=== PATIENT | male | born 1965 | race Caucasian/White ===

== ENCOUNTER 2017-10-04 16:49 | Inpatient (IN) ==
[2017-10-04] MEDS ORDERED: Naloxone 0.4 MG/ML INJ IVP PRN ×2 (19:01→22:21)
[2017-10-04] MEDS ORDERED: *HR* Dextrose 50 % in Water (Syg) 50 ML SYRINGE IVP PRN (22:21)
[2017-10-04] MEDS ORDERED: D5% in Water 1,000 ML IVC PRN (22:21)
[2017-10-04] MEDS ORDERED: Acetaminophen 325 MG TABLET PO PRN (22:21)
[2017-10-04] MEDS ORDERED: *HR* Heparin 5,000 UNIT/ML VIAL IVP PRN ×2 (22:21)
[2017-10-04] MEDS ORDERED: *HR* Heparin 5,000 UNIT/ML VIAL IVP ONE (22:21)
[2017-10-04] MEDS ORDERED: Dextrose Gel 15 GM/37.5 ML TUBE PO PRN ×2 (22:21)
[2017-10-04] MEDS ORDERED: Levalbuterol Neb 1.25 MG/3 ML IH PRN (22:36)
[2017-10-04 23:12] LABS: Hematocrit 32.9 % (37.5-50.1); Hemoglobin 10.9 g/dL (12.9-16.9); Mean Corpuscular HGB Conc 33.1 g/dL (31.6-35.5); Mean Corpuscular Hemoglobin 26.9 pg (28.0-33.3); Mean Corpuscular Volume 81.2 fL (83.0-100.0); Mean Platelet Volume 9.7 fL (9.4-12.4); Platelet Count 326 K/mcL (140-400); Red Blood Count 4.05 M/mcL (4.19-5.50)
[2017-10-04 23:17] LABS: INR 1.5; Prothrombin Time 15.8 Seconds (9.4-12.1)
[2017-10-04 23:20] LABS: Activated Partial Thrombo Time 31.1 Seconds (26.0-36.0)
[2017-10-04] MEDS: Furosemide 40 MG/4 ML VIAL IVP SCH (23:50)
[2017-10-04] MEDS: Heparin 25,000 UNIT/500 ML D5W 25,000 UNIT/500 ML BAG IVC SCH (23:51)
--- NOTE | 2017-10-04 23:54 | Internal Med History&Physical ---
Date of Encounter: 10/04/17 Time of Encounter: 19:35 Internal Medicine - H&P: HPI Chief complaint: SOB; CP Admitted From: Hospital to Hospital Transfer Plans for Post Hospital Care: Home History of present illness: Mr. Brown is a 52 year old male who presents in transfer from [facility] ER for sustained tachycardia, shortness of breath, and chest tightness. Workup there revealed patient had a left bundle branch block and EKG , which was old. He also had acute on chronic kidney disease and they were unable to obtain a VQ scan and/or CT angiogram to rule out pulmonary embolus. However, his d-dimer was within normal limits. He was transferred to [facility] for ongoing workup and care. Upon my assessment of the patient, he denies any chest pain or tightness presently. He does confirm having had it earlier today and the last several days. He states he has had flulike illness for the last several days associated with coughing, shortness of breath, myalgias, body aches, and low- grade fevers. Symptoms have all resolved over the last 24 hours except for shortness of breath which persists. Upon further questioning, he states he has had increasing weight gain, significant lower extremity edema, and increased abdominal girth over the last 3 weeks. He states he's never had that before. He denies any prior history of heart disease. He does suffer from sleep apnea and wears a CPAP mask at night religiously. Past Med Surg Social Fam HX - Past Medical History Attestation: Yes The following information was validated with the patient. Source: patient, old records reviewed Medical history: arthritis, COPD, diabetes, GERD, hyperlipidemia, hypertension Psychiatric history: depression - Past Surgical History Surgical History: appendectomy - Social History Smoking Status: Never smoker Smokeless Tobacco Status: Yes Alcohol use: rarely Drug use: none Current living situation: Home, With Family Activity Level: Independent ambulation Recent Out of Country Travel Within the Last 8 Weeks: No - Family History Mother Hx Family Endocrine Disorder: Yes Father Hx Family Cardiac Disorders: Yes Internal Medicine - H&P: Meds Albuterol Sulfate [Ventolin Hfa] 2 puff IH Q6H PRN 12/21/15 [History] Allopurinol [Zyloprim 300 MG] 300 mg PO DAILY 12/21/15 [History] Atorvastatin [Lipitor] 20 mg PO HS 12/21/15 [History] Docusate [Colace] 100 mg PO DAILY 12/21/15 [History] Escitalopram [Lexapro] 10 mg PO HS 12/21/15 [History] Furosemide [Lasix] 40 mg PO BID 12/21/15 [History] Gabapentin [Neurontin] 800 mg PO QID 12/21/15 [History] Gemfibrozil [Lopid] 600 mg PO BIDWM 12/21/15 [History] Insulin Glargine,Hum.rec.anlog [Lantus Solostar] 35 unit SQ HS 12/21/15 [History ] Liraglutide [Victoza 3-Christiano] 1.8 mg SQ DAILY 12/21/15 [History] Lisinopril [Zestril] 5 mg PO DAILY 12/21/15 [History] OxyCODONE/APAP 10/325 [Percocet 10/325 MG] 1 each PO Q4HR PRN 12/21/15 [History] Potassium Chloride [K-Tab ER] 20 meq PO BID 12/21/15 [History] Terazosin [Hytrin] 5 mg PO HS 12/21/15 [History] amLODIPine [Norvasc] 10 mg PO DAILY 12/21/15 [History] hydrOXYzine HCl [Hydroxyzine HCl] 100 mg PO HS 12/21/15 [History] Albuterol Neb [Proventil Neb] 2.5 mg IH TID 02/20/17 [History] Cholecalciferol (Vitamin D3) [Vitamin D3] 10,000 unit PO 2XW 02/20/17 [History] Linaclotide [Linzess] 290 mcg PO DAILY 02/20/17 [History] Metformin HCl [Glucophage] 1,000 mg PO BID 02/20/17 [History] Methocarbamol [Robaxin-750] 750 mg PO Q8H PRN 02/20/17 [History] Multivitamin with Iron [Multivitamins with Iron] 1 each PO DAILY 02/20/17 [ History] [place]-3/Dha/Epa/Fish Oil [Fish Oil 1,000 mg Softgel] 2,000 mg PO BID 02/20/17 [ History] Polyvinyl Alcohol [Artificial Tears] 2 drop OP QID PRN 02/20/17 [History] Ranitidine HCl [Zantac] 300 mg PO DAILY 02/20/17 [History] Testosterone Cypionate [Depo-Testosterone] 200 mg IM Q2W 02/20/17 [History] glipiZIDE [Glipizide ER] 10 mg PO DAILY 02/20/17 [History] Azithromycin [Zithromax Tri-Christiano] 500 mg PO DAILY #2 tablet 02/23/17 [Rx] Cefdinir [Omnicef] 300 mg PO BID #4 capsule 02/23/17 [Rx] 3 Allergy/AdvReac Type Severity Reaction Status Date / Time aspirin Allergy Swelling Verified 01/17/17 14:27 of Lip/Tongue/Throat Penicillins Allergy Swelling Verified 01/17/17 14:27 of Lip/Tongue/Throat Sulfa (Sulfonamide Allergy Swelling Verified 01/17/17 14:27 Antibiotics) of Lip/Tongue/Throat - Constitutional Constitutional: fatigue, malaise, weight gain, no fever(s) - EENT Eyes: no blurry vision, no change in vision Ears: no ear pain, no tinnitus Nose, mouth and throat: nasal congestion, no nasal discharge, no sinus pressure , no sore throat - Cardiovascular Cardiovascular ROS IM: chest pain, dyspnea, dyspnea on exertion, edema, orthopnea, paroxysmal nocturnal dyspnea, no syncope - Respiratory Respiratory: cough (dry), dyspnea, dyspnea on exertion, no wheezing, no pain on inspiration, no chest congestion, no excessive phlegm production, no change in phlegm color, no pain with cough - Gastrointestinal Gastrointestinal: no abdominal pain, no diarrhea, no hematemesis, no hematochezia, no melena, no nausea, no vomiting - Genitourinary Genitourinary ROS male: no dysuria, no flank pain, no hematuria - Musculoskeletal Musculoskeletal ROS IM: myalgias (resolved), no arthralgias, no back pain - Integumentary Integumentary IM: no rash, no jaundice - Neurological Neurological ROS: no dizziness, no focal weakness, no frequent falls, no headache(s) - Psychiatric Psychiatric: no anxiety, no depression - Endocrine Endocrine IM: polydipsia, polyuria - Allergic/Immunologic Allergic/Immunologic: no GI upset with certain foods - Constitutional Vitals: Temp Pulse Resp BP Pulse Ox 97.8 F 122 18 115/74 96 10/04/17 18:14 10/04/17 18:14 10/04/17 18:14 10/04/17 18:14 10/04/17 21:33 General appearance: Present: cooperative, mild distress (respiratory), A&O X 3, no acute distress, answers questions appropriately - Head Head exam: Present: atraumatic, normal inspection - Eye Eye exam: Present: EOMI, normal appearance, PERRL. Absent: scleral icterus Pupils: Present: normal accommodation - ENT ENT exam: Present: mucous membranes dry, normal exam, normal oropharynx - Neck Neck exam general surgery: Present: full ROM, supple. Absent: lymphadenopathy, tenderness, nuchal rigidity, thyromegaly - Expanded Neck Exam Neck exam: Absent: carotid bruit - Respiratory Respiratory exam: Present: accessory muscle use, rales (both bases), respiratory distress (mild ), rhonchi. Absent: chest wall tenderness, wheezes - Cardiovascular Cardiovascular exam: Present: distant heart sounds, +S1, +S2, tachycardia. Absent: diastolic murmur, JVD (unable to assess), systolic murmur - GI/Abdominal GI/Abdominal exam: Present: distended, soft. Absent: guarding, hepatomegaly, rebound, splenomegaly, tenderness Additional comments: increased girth - Extremities Exam Extremities exam: Present: full ROM, normal capillary refill, pedal edema (3+ ( all new)), warm, radial pulses palpable and symmetrical. Absent: calf tenderness, cyanotic, joint swelling, tenderness - Back Exam Back exam: Present: normal inspection. Absent: CVA tenderness (L), CVA tenderness (R) - Neurological Exam Neurological exam: Present: alert, CN II-XII intact, oriented X3, no focal deficits - Psychiatric Psychiatric exam: Present: normal affect, normal mood - Skin Skin exam: Present: dry, rash, warm Additional comments: multiple tattoos throughout Internal Med - H&P Results - Labs CBC & Chem 7: 10/04/17 23:02 Labs: Short CBC 10/04/17 Range/Units 23:02 WBC 8.0 (4.3-11.1) K/mcL Hgb 10.9 L (12.9-16.9) g/dL Hct 32.9 L (37.5-50.1) % Plt Count 326 (140-400) K/mcL Cardiac Enzymes 10/04/17 Range/Units 19:17 Troponin I 0.03 (< 0.04) ng/mL In addition to above I reviewed his labs from [facility] and include the following: Sodium 135 Potassium 3.5 Chloride 98 Carbon dioxide 22 Creatinine 1.84 BUN 49 Baseline creatinine is about 1.3 PT 14.6 INR 1.3 PTT 32.1 D-dimer 408 Troponin -- 0.03 - EKG Data -: EKG Interpreted by Myself - EKG Data Prior EKG available for review: yes When compared to previous EKG: there is no significant change EKG comments: 10/05/17 00:02 LBBB; tachycardia - Diagnostic Studies Chest x-ray Status: image reviewed by me (cardiomegaly and CHF findings) - VTE Reasons for not Prescribing Prophylaxis: Not indicated-Anticoagulated or INR therapeutic - Assessment and plan (1) Congestive heart failure Current Visit: Yes Status: Acute Assessment and plan: 1. Will place on fluid restriction and begin diuresis. 2. Will order ECHO and consult cardiology for new diagnosis of CHF. 3. Patient denies heart disease history and/or h/o CAD. 4. Will order V/Q and LE Dopplers to rule out PE/DVT. 5. Continue CPAP per home settings. 6. Heparin gtt started empirically for the remote possibility of PE and /or unstable angina. 7. Will trend troponins and EKG's. Qualifiers: Heart failure type: unspecified Heart failure chronicity: acute Qualified Code(s): I50.9 - Heart failure, unspecified (2) Acute on chronic renal failure Current Visit: No Status: Acute Assessment and plan: 1. Will monitor renal function and avoid nephrotoxic medications. 2. Monitor I/O and daily weight. 3. Consult nephrology if necessary. Qualifiers: Acute renal failure type: unspecified Chronic kidney disease stage: stage 3 (moderate) Qualified Code(s): N17.9 - Acute kidney failure, unspecified; N18.3 - Chronic kidney disease, stage 3 (moderate) (3) Diabetes Current Visit: No Status: Chronic Assessment and plan: 1. Will place on SSI and adjust dose as necessary. 2. Awaiting home medication verification. 3. Resume basal insulin once verified. 4. Hold oral home diabetic meds. 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 On heparin drip per protocol.
[2017-10-05 01:07] LABS: Adenovirus Not Detected (Not Detect); Bordetella Pertussis Not Detected (Not Detect); Chlamydophila pneumoniae Not Detected (Not Detect); Coronavirus 229E Not Detected (Not Detect); Coronavirus HKU1 Not Detected (Not Detect); Coronavirus NL63 Not Detected (Not Detect); Coronavirus OC43 Not Detected (Not Detect); Human Metapneumovirus Not Detected (Not Detect); Human Rhinovirus/Enterovirus Not Detected (Not Detect); Influenza A Subtype 2009 H1 Not Detected (Not Detect); Influenza A Untypeable Not Detected (Not Detect); Influenza B Not Detected (Not Detect); Mycoplasma pneumoniae Not Detected (Not Detect); Parainfluenza Virus 1 Not Detected (Not Detect); Parainfluenza Virus 2 Not Detected (Not Detect); Parainfluenza Virus 3 Not Detected (Not Detect); Parainfluenza Virus 4 Not Detected (Not Detect); Respiratory Syncytial Virus Not Detected (Not Detect)
[2017-10-05 01:21] LABS: Basophils % 0.1 %; Hemoglobin 11.4 g/dL (12.9-16.9); Immature Granulocytes % 0.5 % (0-4); Lymphocytes # 0.4 K/mcL (0.6-4.6); Mean Corpuscular HGB Conc 33.5 g/dL (31.6-35.5); Mean Corpuscular Hemoglobin 26.9 pg (28.0-33.3); Mean Corpuscular Volume 80.2 fL (83.0-100.0); Mean Platelet Volume 9.7 fL (9.4-12.4); Monocytes # 0.2 K/mcL (0.0-1.3); Monocytes % 2.1 %; Neutrophils # 7.8 K/mcL (1.6-8.9); Platelet Count 360 K/mcL (140-400); Red Blood Count 4.24 M/mcL (4.19-5.50); Red Cell Distribution Width 14.2 % (11.5-14.5); Segmented Neutrophils % 92.3 %
[2017-10-05 01:26] LABS: INR 1.7; Prothrombin Time 18.1 Seconds (9.4-12.1)
[2017-10-05 01:42] LABS: Albumin 3.8 g/dL (3.5-5.7); Albumin/Globulin Ratio 1.1 (1.1-2.2); Bilirubin,Total 0.4 mg/dL (0.3-1.0); Calcium 8.4 mg/dL (8.6-10.3); Chol/HDL Ratio 3.9 (0-4.9); Globulin 3.5 g/dL (2.4-3.5); Potassium 5.2 mEq/L (3.5-5.1); Total Protein 7.3 g/dL (6.4-8.9)
[2017-10-05 08:19] LABS: Estimated Average Glucose 223 mg/dl; Hemoglobin A1C 9.4 %
[2017-10-05] MEDS: Gabapentin 400 MG CAPSULE PO SCH ×4 (08:47→20:50)
[2017-10-05] MEDS: Multivit/Ca/Min/Fe/FA 1 TAB TABLET PO SCH (08:47)
[2017-10-05] MEDS: Famotidine 20 MG TABLET PO SCH (08:47)
[2017-10-05] MEDS: Insulin LISPRO 300 UNITS/3 ML VIAL SQ SCH ×4 (08:50→23:38)
[2017-10-05] MEDS: Furosemide 40 MG/4 ML VIAL IVP SCH (08:51)
--- NOTE | 2017-10-05 10:40 | Cardiology Consult Note ---
<Elodia Zavala - Last Filed: 10/05/17 10:45> Date of Encounter: 10/05/17 Time of Encounter: 10:00 Assessment and Plan (1) Congestive heart failure Current Visit: Yes Status: Acute Patient presents with CHF symptoms; type unclear. Suspect diastolic. Also-- primary team working up ?PE, unable to complete V/Q d/t orthopnea. BNP mildly elevated at 288--patient is morbidly obese. CXR shows vascular congestion. Mildly volume overload upon exam. Reports chronic orthopnea. Last TTE 2011 demonstrated preserved LVEF, 50-55%. Also presented with MOISES on CKD, SCr 1.77 today. Would recommend cautious diuresis. Strict I&O's, Na/fluid restriction diet. Daily weights. Echo pending. Qualifiers: Heart failure type: diastolic Heart failure chronicity: acute on chronic Qualified Code(s): I50.33 - Acute on chronic diastolic (congestive) heart failure (2) FRED (obstructive sleep apnea) Current Visit: No Status: Chronic Reports compliance with CPAP Discussion w patient/family: The assessment and plan as outlined above was discussed with the patient and/or family members who expressed understanding and agreement. All questions were answered. Thank you for involving us in the care of your patient. Please call with any questions. The patient will be discussed and reviewed with Dr. High; changes to be made accordingly. History of Present Illness Consult date: 10/05/17 Requesting physician: Moe Thomson Consult reason: CHF Chief complaint: shortness of breath History of present illness: Mr. Brown is a 52 year old male with PMHx significant of FRED (CPAP), HTN, HLD, DMII, CKD, and morbid obesity who presented to [place] ED with a 2-week history of flu-like symptoms including nonproductive cough, fatigue, shortness of breath, and chest tightness. He describes chest tightness and "chest cold." He states that he has not been eating/drinking as he normally would due to "feeling so bad." He was found to be tachycardiac and D-dimer was elevated and then sent to [facility] for further care. ECG demonstrated LBB (old). Cardiology consulted for concern of new CHF. Unfortunately, he was unable to complete V/Q scan (r/o PE) this AM due to orthopnea. He tells me he has not been able to lay flat for "years." Prior CV testing: TTE 2012: LVEF 50-55%, normal wall motion Regadenoson nuclear 2012: negative for ischemia. Past Med Surg Social Fam HX - Past Medical History Attestation: Yes The following information was validated with the patient. Source: patient Medical history: arthritis, COPD, diabetes, GERD, hyperlipidemia, hypertension Psychiatric history: depression - Past Surgical History Surgical History: appendectomy - Social History Smoking Status: Never smoker Smokeless Tobacco Status: Yes Alcohol use: rarely Drug use: none - Family History Mother Hx Family Endocrine Disorder: Yes Father Hx Family Cardiac Disorders: Yes Medications and Allergies Albuterol Sulfate [Ventolin Hfa] 2 puff IH Q6H PRN 12/21/15 [History] Allopurinol [Zyloprim 300 MG] 300 mg PO DAILY 12/21/15 [History] Atorvastatin [Lipitor] 20 mg PO HS 12/21/15 [History] Docusate [Colace] 100 mg PO DAILY 12/21/15 [History] Escitalopram [Lexapro] 20 mg PO HS 12/21/15 [History] Furosemide [Lasix] 40 mg PO BID 12/21/15 [History] Gabapentin [Neurontin] 800 mg PO QID 12/21/15 [History] Gemfibrozil [Lopid] 600 mg PO BIDWM 12/21/15 [History] Insulin Glargine,Hum.rec.anlog [Lantus Solostar] 35 unit SQ HS 12/21/15 [History ] Liraglutide [Victoza 3-Christiano] 1.8 mg SQ DAILY 12/21/15 [History] Lisinopril [Zestril] 5 mg PO DAILY 12/21/15 [History] OxyCODONE/APAP 10/325 [Percocet 10/325 MG] 1 each PO Q4HR PRN 12/21/15 [History] Terazosin [Hytrin] 5 mg PO HS 12/21/15 [History] amLODIPine [Norvasc] 10 mg PO DAILY 12/21/15 [History] hydrOXYzine HCl [Hydroxyzine HCl] 100 mg PO HS 12/21/15 [History] Albuterol Neb [Proventil Neb] 2.5 mg IH TID 02/20/17 [History] Cholecalciferol (Vitamin D3) [Vitamin D3] 10,000 unit PO 2XW 02/20/17 [History] Linaclotide [Linzess] 290 mcg PO DAILY 02/20/17 [History] Metformin HCl [Glucophage] 1,000 mg PO BID 02/20/17 [History] Methocarbamol [Robaxin-750] 750 mg PO Q8H PRN 02/20/17 [History] Multivitamin with Iron [Multivitamins with Iron] 1 each PO DAILY 02/20/17 [ History] [place]-3/Dha/Epa/Fish Oil [Fish Oil 1,000 mg Softgel] 2,000 mg PO BID 02/20/17 [ History] Ranitidine HCl [Zantac] 300 mg PO DAILY 02/20/17 [History] Testosterone Cypionate [Depo-Testosterone] 200 mg IM Q2W 02/20/17 [History] glipiZIDE [Glipizide ER] 10 mg PO DAILY 02/20/17 [History] Acyclovir [Zovirax] 200 mg PO BID 10/05/17 [History] 3 Allergy/AdvReac Type Severity Reaction Status Date / Time aspirin Allergy Swelling Verified 10/05/17 09:23 of Lip/Tongue/Throat Penicillins Allergy Swelling Verified 10/05/17 09:23 of Lip/Tongue/Throat Sulfa (Sulfonamide Allergy Swelling Verified 10/05/17 09:23 Antibiotics) of Lip/Tongue/Throat All Systems Review: The remainder of the systems were reviewed and are negative - Cardiovascular Cardiovascular: as per HPI Physical Examination Vital Signs, Last 4 Hours Temp Pulse Resp BP Pulse Ox 10/05/17 07:36 97.5 F L 116 18 95/69 97 General: Conversant, Other (morbidly obese) HEENT: Atraumatic, Normocephaly Cardiac: Reg Rate and Rhythm (tachycardiac) Lungs: Normal Breath Sounds Neuro: Alert and responsive Abdomen: Soft (obese) Extremities: Other (large LE) Results 10/05/17 00:53 10/05/17 00:53 Lab Results 10/04/17 10/04/17 10/04/17 19:17 23:02 23:02 WBC 8.0 Hgb 10.9 L Hct 32.9 L Plt Count 326 INR 1.5 APTT 31.1 Sodium Potassium Chloride Carbon Dioxide BUN Creatinine Glucose Calcium Magnesium Total Bilirubin AST ALT Alkaline Phosphatase Troponin I 0.03 B-Natriuretic Peptide 10/05/17 10/05/17 10/05/17 00:53 00:53 00:53 WBC 8.5 Hgb 11.4 L Hct 34.0 L Plt Count 360 INR 1.7 APTT Sodium Potassium Chloride Carbon Dioxide BUN Creatinine Glucose Calcium Magnesium Total Bilirubin AST ALT Alkaline Phosphatase Troponin I 0.03 B-Natriuretic Peptide 10/05/17 10/05/17 10/05/17 00:53 00:53 06:06 WBC Hgb Hct Plt Count INR APTT 85.2 H D Sodium 130 L Potassium 5.2 H D Chloride 97 L Carbon Dioxide 19 L BUN 55 H Creatinine 1.77 H Glucose 400 H Calcium 8.4 L Magnesium 2.0 Total Bilirubin 0.4 AST 17 ALT 23 Alkaline Phosphatase 102 Troponin I B-Natriuretic Peptide 288 H 10/05/17 07:03 WBC Hgb Hct Plt Count INR APTT Sodium Potassium Chloride Carbon Dioxide BUN Creatinine Glucose Calcium Magnesium Total Bilirubin AST ALT Alkaline Phosphatase Troponin I 0.03 B-Natriuretic Peptide Active Medications Acetaminophen (Tylenol) 650 mg PO Q6H PRN PRN Reason: Mild Pain/Fever Stop: 04/05/18 22:22 Allopurinol (Zyloprim) 300 mg PO DAILY [facility] Stop: 04/06/18 09:01 Last Admin: 10/05/17 08:47 Dose: 300 mg Atorvastatin Calcium (Lipitor) 20 mg PO HS [facility] Stop: 04/06/18 21:01 Dextrose/Water (Dextrose 50% (Syg)) 25 ml IVP AD PRN PRN Reason: Hypoglycemia Stop: 04/05/18 22:22 Docusate Sodium (Colace) 100 mg PO DAILY [facility] PRN Reason: Protocol Stop: 04/06/18 09:01 Last Admin: 10/05/17 08:51 Dose: 100 mg Famotidine (Pepcid) 40 mg PO DAILY [facility] Stop: 04/06/18 09:01 Last Admin: 10/05/17 08:47 Dose: 40 mg Furosemide (Lasix) 40 mg IVP BID [facility] Stop: 04/05/18 22:31 Last Admin: 10/05/17 08:51 Dose: 40 mg Gabapentin (Neurontin) 800 mg PO QID [facility] Stop: 04/06/18 09:01 Last Admin: 10/05/17 08:47 Dose: 800 mg Gemfibrozil (Lopid) 600 mg PO BIDWM [facility] Stop: 04/06/18 08:01 Last Admin: 10/05/17 08:49 Dose: 600 mg Glucagon (Glucagen) 1 mg IM ONCE PRN PRN Reason: Hypoglycemia Stop: 04/05/18 22:22 Glucose (Gluctose) 15 gm PO ONCE PRN PRN Reason: Hypoglycemia Stop: 04/05/18 22:22 Glucose (Gluctose) 30 gm PO ONCE PRN PRN Reason: Hypoglycemia Stop: 04/05/18 22:22 Heparin Sodium (Porcine) (Heparin) 9,000 unit IVP Q6HR PRN PRN Reason: SEE COMMENTS Stop: 04/05/18 22:22 Heparin Sodium (Porcine) (Heparin) 4,500 unit IVP Q6H PRN PRN Reason: SEE COMMENTS Stop: 04/05/18 22:22 Dextrose (Dextrose 5%) 1,000 mls @ 100 mls/hr IVC .Q10H PRN PRN Reason: HYPOGLYCEMIA Stop: 04/05/18 22:22 Heparin Sodium/Dextrose (Heparin 25,000 Unit/500 Ml D5w) 25,000 unit in 500 mls @ 41.692 mls/hr IVC .Q12H [facility]; 14 UNIT/KG/HR PRN Reason: Protocol Stop: 04/05/18 22:31 Last Titration: 10/05/17 06:00 Dose: 14 unit/kg/hr, 41.692 mls/hr Insulin Human Lispro (Humalog) 0 units SQ TIDAC [facility] PRN Reason: Protocol Stop: 04/06/18 07:31 Last Admin: 10/05/17 08:50 Dose: 10 units Levalbuterol HCl (Xopenex) 1.25 mg IH [id number] PRN PRN Reason: Wheezing Stop: 04/05/18 22:46 Metoprolol Tartrate (Lopressor) 12.5 mg PO BID [facility] Stop: 04/05/18 22:31 Last Admin: 10/05/17 08:48 Dose: 12.5 mg Multivitamins/Calcium (Thera M Plus) 1 tab PO DAILY [facility] Stop: 04/06/18 09:01 Last Admin: 10/05/17 08:47 Dose: 1 tab Naloxone HCl (Narcan) 0.4 mg IVP Q2MIN PRN PRN Reason: SEE COMMENTS Stop: 04/05/18 19:02 Naloxone HCl (Narcan) 0.4 mg IVP Q2MIN PRN PRN Reason: SEE COMMENTS Stop: 04/05/18 22:22 Polyethylene Glycol (Miralax) 17 gm PO DAILY PRN PRN Reason: Constipation Stop: 04/06/18 07:58 Last Admin: 10/05/17 08:47 Dose: 17 gm Terazosin HCl (Hytrin) 5 mg PO HS [facility] Stop: 04/06/18 21:01 Vitamin D (Vitamin D) 1,000 unit PO DAILY [facility] Stop: 04/09/18 09:01 - Imaging and Cardiology Stress Test: report reviewed Echo: pending, report reviewed - EKG Interpretation EKG results cardiology: personally reviewed Consult Discharge Plan - Plan Referrals: NONE,PCP [Non-Partnered Physician] - <Neo High - Last Filed: 10/09/17 19:29> Date of Encounter: 10/05/17 Time of Encounter: 19:00 - Attending Attestation I have personally performed a face to face evaluation on this patient. I have reviewed and agree with the care plan. History and Exam by me shows: CC: Shortness of breath Pt admitted through [place] [facility] with complaints of two weeks of flu like symptoms. He complains of chest tightness and shortness of breath with exertion. HE was found to have increased lower extremity edema and abnormal chest xray suggestive of ischemia. PMHx: reviewed PE: Pt seen, agree with findings as documented. IMP: 1. CHF: questionable, will order echocardiogram to eval LV function, further recomendations pending cardiac imaging. 2. FRED: reports is compliant with CPAP Assessment and Plan Discussion w patient/family: The assessment and plan as outlined above was discussed with the patient and/or family members who expressed understanding and agreement. All questions were answered. Thank you for involving us in the care of your patient. Please call with any questions. History of Present Illness History of present illness: Mr. Brwon is a 52 year old male All Systems Review: The remainder of the systems were reviewed and are negative Physical Examination Vital Signs, Last 4 Hours Temp 10/09/17 15:47 97.6 F Results 10/08/17 03:40 10/09/17 04:36 Lab Results 10/09/17 04:36 Sodium 131 L Potassium 4.5 Chloride 98 Carbon Dioxide 24 BUN 84 H Creatinine 2.12 H Glucose 103 Calcium 8.4 L
[2017-10-05] MEDS: Heparin 25,000 UNIT/500 ML D5W 25,000 UNIT/500 ML BAG IVC SCH (12:24)
[2017-10-05] MEDS ORDERED: Methocarbamol 750 MG TABLET PO PRN (14:25)
[2017-10-05] MEDS ORDERED: LIRAGLUTIDE 1.8 MG SQ SCH (14:30)
[2017-10-05] MEDS ORDERED: NON-FORMULARY MEDICATION 1 EACH EACH (Testosterone Cypionate [Depo-Testosterone] 200 MG) IM SCH (14:30)
[2017-10-05] MEDS ORDERED: *HR* GlipiZIDE XL (24 HR) 10 MG TABLET PO SCH (14:30)
[2017-10-05] MEDS ORDERED: *HR* Metformin 500 MG TABLET PO SCH (14:30)
[2017-10-05] MEDS ORDERED: [UNRECOGNIZED DRUG - OTHER] SQ SCH (14:30)
[2017-10-05] MEDS ORDERED: amLODIPine 5 MG TABLET PO SCH (14:30)
[2017-10-05] MEDS ORDERED: Furosemide 40 MG TABLET PO SCH (14:30)
--- NOTE | 2017-10-05 15:00 | Internal Med Progress Note ---
<Jace Cole - Last Filed: 10/05/17 16:46> Date of Encounter: 10/05/17 Time of Encounter: 15:00 - Assessment and plan (1) Acute on chronic renal failure Current Visit: No Status: Acute Assessment and plan: 1. Will monitor renal function and avoid nephrotoxic medications. 2. Monitor I/O and daily weight. 3. Consult nephrology if necessary. Qualifiers: Acute renal failure type: unspecified Chronic kidney disease stage: stage 3 (moderate) Qualified Code(s): N17.9 - Acute kidney failure, unspecified; N18.3 - Chronic kidney disease, stage 3 (moderate); N18.3 - Chronic kidney disease, stage 3 (moderate) (2) Diabetes Current Visit: No Status: Chronic Assessment and plan: Continue medium dose SSI and monitor with AM labs reconcile home meds Hold oral home diabetic meds. Qualifiers: Diabetes mellitus type: type 2 Diabetes mellitus long-term insulin use: with bed bug exterminator use Diabetes mellitus complication status: with kidney complications Diabetes mellitus complication detail: with chronic kidney disease Chronic kidney disease stage: stage 3 (moderate) Qualified Code(s): E11.22 - Type 2 diabetes mellitus with diabetic chronic kidney disease; N18.3 - Chronic kidney disease, stage 3 (moderate); N18.3 - Chronic kidney disease, stage 3 (moderate); Z79.4 - shelter (current) use of insulin; Z79.4 - shelter (current) use of insulin; Z79.4 - shelter (current) use of insulin; Z79.4 - shelter (current) use of insulin (3) FRED (obstructive sleep apnea) Current Visit: No Status: Chronic Assessment and plan: CPAP at night. (4) DVT prophylaxis Current Visit: No Status: Acute Assessment and plan: SCD for DVT prophylaxis (5) Congestive heart failure Current Visit: Yes Status: Acute Assessment and plan: Patient had shortness of breath and chest pressure on admission. Troponin negative 3 Echocardiogram demonstrates left ventricular ejection fraction 20%. Moderately dilated left ventricle. Severe global left ventricular systolic dysfunction. Severely dilated left and right atrium. Abnormal wall motion throughout. Cardiology on board. Plan for [facility] when available. Awaiting call from cardiology to update on new echo results. Continue patient on fluid restriction and diuresis, BB, ACEI Unable to perform V/Q scan due to shortness of breath. Discontinue heparin. Continue CPAP per home settings. Patient has anaphylactic reaction to aspirin. Consulted Dr. Guerra for possible recommendations Qualifiers: Heart failure type: diastolic Heart failure chronicity: acute on chronic Qualified Code(s): I50.33 - Acute on chronic diastolic (congestive) heart failure - Time Spent With Patient Total time spent is greater than 50% in coordination of care (as documented) at patient's floor/unit and/or counseling patient: - Subjective Interval history: 52-year-old male presents from transfer from [facility] for sustained tachycardia, shortness of breath, chest tightness. Workup revealed the patient had left bundle branch block. He was also diagnosed with acute on chronic kidney disease and was unable to obtain VQ scan and CT angiogram to rule out pulmonary embolism. D-dimer was within normal limits. Today, patient reports improvement of shortness of breath with oxygen. Denies any chest pain, cough, fever, chills, nausea, vomiting, diarrhea, constipation. Patient admits to suffering from sleep apnea and wears CPAP at night. He denies having echo or cardiac workup in the past. - Constitutional Vitals: Temp Pulse Resp BP Pulse Ox 97.5 F L 120 16 94/75 97 10/05/17 07:36 10/05/17 12:42 10/05/17 12:42 10/05/17 12:42 10/05/17 12:42 General appearance: Present: cooperative, mild distress (respiratory), A&O X 3, no acute distress, answers questions appropriately - Head Head exam: Present: atraumatic, normocephalic - Eye Eye exam: Present: PERRL, conjuntiva pink, sclera anicteric Pupils: Present: PERRL - Neck Neck exam general surgery: Present: supple, trachea midline. Absent: lymphadenopathy - Respiratory Respiratory exam: Present: CTAB. Absent: accessory muscle use, rales, rhonchi, wheezes - Cardiovascular Cardiovascular exam: Present: RRR, +S1, +S2. Absent: diastolic murmur, gallop, rubs, systolic murmur - GI/Abdominal GI/Abdominal exam: Present: normal bowel sounds, soft, no peritoneal signs. Absent: distended, tenderness - Extremities Exam Extremities exam: Present: warm, radial pulses palpable and symmetrical. Absent : calf tenderness, cyanotic, pedal edema - Neurological Exam Neurological exam: Present: CN II-XII intact, oriented X3, no focal deficits. Absent: pronater drift, facial droop, speech deficit - Skin Skin exam: Present: dry, intact Internal Medicine: Result - Labs CBC & Chem 7: 10/05/17 00:53 10/05/17 00:53 Labs: Short CBC 10/04/17 10/05/17 Range/Units 23:02 00:53 WBC 8.0 8.5 (4.3-11.1) K/mcL Hgb 10.9 L 11.4 L (12.9-16.9) g/dL Hct 32.9 L 34.0 L (37.5-50.1) % Plt Count 326 360 (140-400) K/mcL Neutrophils # 7.8 (1.6-8.9) K/mcL BMP 10/05/17 00:53 Sodium 130 L Potassium 5.2 H D Chloride 97 L Carbon Dioxide 19 L BUN 55 H Creatinine 1.77 H Glucose 400 H Calcium 8.4 L Cardiac Enzymes 10/04/17 10/05/17 10/05/17 Range/Units 19:17 00:53 07:03 Troponin I 0.03 0.03 0.03 (< 0.04) ng/mL Liver Function 10/05/17 Range/Units 00:53 Total Bilirubin 0.4 (0.3-1.0) mg/dL AST 17 (13-39) Units/L ALT 23 (7-52) Units/L Alkaline Phosphatase 102 (34-104) Units/L Albumin 3.8 (3.5-5.7) g/dL - ABG Interpretation ABG results: PT/INR, D-dimer PT 18.1 Seconds (9.4-12.1) H 10/05/17 00:53 - Impressions Impressions Echocardiogram 10/05/17 22:29 Impressions: LVEF 20%. Moderately dilated left ventricle. Severe global left ventricular systolic dysfunction. Indeterminate diastolic function. Mildly dilated right ventricle. Mild right ventricular hypokinesis. Severely dilated left atrium. Severely dilated right atrium. Mild mitral regurgitation. Mild tricuspid regurgitation. Moderate pulmonary hypertension. Estimated RVSP is 44-49 mmHg. Left Ventricular Wall Motion: Rest Echo Findings The apex, apical inferior, mid inferior, basal inferior, apical anterior, mid anterior, basal anterior, apical septal, mid inferior septal, basal inferior septal, apical lateral, mid anterior lateral, basal anterior lateral, mid anterior septal, mid inferior lateral, basal anterior septal and basal inferior lateral campos were hypokinetic. Findings: Study Quality * Technically adequate exam. ECG Findings * Sinus tachycardia,bundle branch block. Left Ventricle * LVEF 20%. * Moderately dilated left ventricle. * Severe global left ventricular systolic dysfunction. * Indeterminate diastolic function. Right Ventricle * Mildly dilated right ventricle. * Mild right ventricular hypokinesis. Left Atrium * Severely dilated left atrium. Right Atrium * Severely dilated right atrium. Interatrial Septum * Interatrial septum not well evaluated. Aortic Valve * Trileaflet aortic valve. * No aortic regurgitation. * No aortic stenosis. Mitral Valve * Normal mitral valve structure. * Mild mitral regurgitation. * No mitral stenosis. Tricuspid Valve * Normal tricuspid valve structure. * Mild tricuspid regurgitation. * Moderate pulmonary hypertension. * Estimated RVSP is 44-49 mmHg. * Estimated RA pressure is 15-20 mmHg. Pulmonic Valve * Normal pulmonic valve structure and function. * No pulmonic regurgitation. Aorta * Normally sized aortic root. Pericardium * The pericardium appears normal. IVC * Normal IVC dimensions and inspiratory collapse. Pulmonary Artery * Pulmonary artery not well visualized. - VTE Reasons for not Prescribing Prophylaxis: Not indicated-Anticoagulated or INR therapeutic Consult Discharge Plan - Plan Referrals: NONE,PCP [Non-Partnered Physician] - <David Pittman - Last Filed: 10/05/17 19:13> Date of Encounter: 10/05/17 - Assessment and plan (1) Congestive heart failure Current Visit: Yes Status: Acute Qualifiers: Heart failure type: systolic Heart failure chronicity: acute on chronic Qualified Code(s): I50.23 - Acute on chronic systolic (congestive) heart failure (2) Diabetes Current Visit: No Status: Chronic Qualifiers: Diabetes mellitus type: type 2 Diabetes mellitus bed bug exterminator insulin use: with long-term use Diabetes mellitus complication status: with kidney complications Diabetes mellitus complication detail: with chronic kidney disease Chronic kidney disease stage: stage 3 (moderate) Qualified Code(s): E11.22 - Type 2 diabetes mellitus with diabetic chronic kidney disease; N18.3 - Chronic kidney disease, stage 3 (moderate); N18.3 - Chronic kidney disease, stage 3 (moderate); Z79.4 - ferry terminal agent (current) use of insulin; Z79.4 - shelter (current) use of insulin; Z79.4 - shelter (current) use of insulin; Z79.4 - ferry terminal agent (current) use of insulin (3) FRED (obstructive sleep apnea) Current Visit: No Status: Chronic (4) Acute on chronic renal failure Current Visit: No Status: Acute Qualifiers: Acute renal failure type: unspecified Chronic kidney disease stage: stage 3 (moderate) Qualified Code(s): N17.9 - Acute kidney failure, unspecified; N18.3 - Chronic kidney disease, stage 3 (moderate); N18.3 - Chronic kidney disease, stage 3 (moderate) (5) Hypertension Current Visit: No Status: Chronic Qualifiers: Hypertension type: essential hypertension Qualified Code(s): I10 - Essential (primary) hypertension (6) Morbid obesity with BMI of 45.0-49.9, adult Current Visit: No Status: Chronic (7) DVT prophylaxis Current Visit: No Status: Acute - Time Spent With Patient Total time spent is greater than 50% in coordination of care (as documented) at patient's floor/unit and/or counseling patient: - Constitutional Vitals: Temp Pulse Resp BP Pulse Ox 97.8 F 121 18 112/83 97 10/05/17 16:00 10/05/17 16:00 10/05/17 16:00 10/05/17 16:00 10/05/17 16:00 Internal Medicine: Result - Labs CBC & Chem 7: 10/05/17 00:53 10/05/17 00:53 Labs: Short CBC 10/04/17 10/05/17 Range/Units 23:02 00:53 WBC 8.0 8.5 (4.3-11.1) K/mcL Hgb 10.9 L 11.4 L (12.9-16.9) g/dL Hct 32.9 L 34.0 L (37.5-50.1) % Plt Count 326 360 (140-400) K/mcL Neutrophils # 7.8 (1.6-8.9) K/mcL BMP 10/05/17 00:53 Sodium 130 L Potassium 5.2 H D Chloride 97 L Carbon Dioxide 19 L BUN 55 H Creatinine 1.77 H Glucose 400 H Calcium 8.4 L Cardiac Enzymes 10/04/17 10/05/17 10/05/17 Range/Units 19:17 00:53 07:03 Troponin I 0.03 0.03 0.03 (< 0.04) ng/mL Liver Function 10/05/17 Range/Units 00:53 Total Bilirubin 0.4 (0.3-1.0) mg/dL AST 17 (13-39) Units/L ALT 23 (7-52) Units/L Alkaline Phosphatase 102 (34-104) Units/L Albumin 3.8 (3.5-5.7) g/dL - ABG Interpretation ABG results: PT/INR, D-dimer PT 18.1 Seconds (9.4-12.1) H 10/05/17 00:53 - Impressions Impressions Echocardiogram 10/05/17 22:29 Impressions: LVEF 20%. Moderately dilated left ventricle. Severe global left ventricular systolic dysfunction. Indeterminate diastolic function. Mildly dilated right ventricle. Mild right ventricular hypokinesis. Severely dilated left atrium. Severely dilated right atrium. Mild mitral regurgitation. Mild tricuspid regurgitation. Moderate pulmonary hypertension. Estimated RVSP is 44-49 mmHg. Left Ventricular Wall Motion: Rest Echo Findings The apex, apical inferior, mid inferior, basal inferior, apical anterior, mid anterior, basal anterior, apical septal, mid inferior septal, basal inferior septal, apical lateral, mid anterior lateral, basal anterior lateral, mid anterior septal, mid inferior lateral, basal anterior septal and basal inferior lateral campos were hypokinetic. Findings: Study Quality * Technically adequate exam. ECG Findings * Sinus tachycardia,bundle branch block. Left Ventricle * LVEF 20%. * Moderately dilated left ventricle. * Severe global left ventricular systolic dysfunction. * Indeterminate diastolic function. Right Ventricle * Mildly dilated right ventricle. * Mild right ventricular hypokinesis. Left Atrium * Severely dilated left atrium. Right Atrium * Severely dilated right atrium. Interatrial Septum * Interatrial septum not well evaluated. Aortic Valve * Trileaflet aortic valve. * No aortic regurgitation. * No aortic stenosis. Mitral Valve * Normal mitral valve structure. * Mild mitral regurgitation. * No mitral stenosis. Tricuspid Valve * Normal tricuspid valve structure. * Mild tricuspid regurgitation. * Moderate pulmonary hypertension. * Estimated RVSP is 44-49 mmHg. * Estimated RA pressure is 15-20 mmHg. Pulmonic Valve * Normal pulmonic valve structure and function. * No pulmonic regurgitation. Aorta * Normally sized aortic root. Pericardium * The pericardium appears normal. IVC * Normal IVC dimensions and inspiratory collapse. Pulmonary Artery * Pulmonary artery not well visualized. - Attending Attestation I examined this patient and my medical decision-making was reviewed with the Resident Physician on 10/05/17. I agree with the documented findings, disposition and treatment plan as described except to the extent set forth below. Mr Brown is currently admitted for acute CHF. He remains moderate to high risk due to potential for worsening clinical status. Mr Brown is feeling better. No CP. Breathing getting to baseline. No fever. Bowel OK. Exam' Alert Comfortable Mucus membranes dry Heart reg Clear lungs at this time Abd soft Edema present EF 20% I/P 1. Acute systolic heart failure 2. HTN Further diagnoses and plan as above.
[2017-10-05] MEDS: Albuterol 2.5 MG/3 ML NEBULIZER IH SCH ×2 (15:22→21:25)
[2017-10-05] MEDS ORDERED: Furosemide 40 MG/4 ML VIAL IVP SCH (17:00)
[2017-10-05] MEDS: (Linaclotide [Linzess] 290 MCG) PO SCH (17:14)
[2017-10-05] MEDS: Acyclovir 200 MG CAPSULE PO SCH ×2 (17:14→20:54)
[2017-10-05] MEDS: hydrOXYzine pamoate 25 MG CAPSULE PO SCH (20:50)
[2017-10-05] MEDS: Insulin DETEMIR 100 UNIT/ML X5UNITS SQ SCH (20:54)
[2017-10-05] MEDS: *HR* OxyCODONE/APAP 10/325 TABLET PO PRN (21:03)
[2017-10-05] MEDS: (Omega-3/Dha/Epa/Fish Oil [Fish Oil 1,000 Mg Softgel]) PO SCH (21:05)
[2017-10-06 04:16] LABS: Hematocrit 32.1 % (37.5-50.1); Hemoglobin 10.6 g/dL (12.9-16.9); Immature Granulocytes % 0.4 % (0-4); Lymphocytes # 1.4 K/mcL (0.6-4.6); Mean Corpuscular Hemoglobin 26.9 pg (28.0-33.3); Mean Corpuscular Volume 81.5 fL (83.0-100.0); Mean Platelet Volume 9.7 fL (9.4-12.4); Monocytes % 10.9 %; Neutrophils # 6.7 K/mcL (1.6-8.9); Platelet Count 362 K/mcL (140-400); Red Blood Count 3.94 M/mcL (4.19-5.50); Red Cell Distribution Width 14.2 % (11.5-14.5); Segmented Neutrophils % 73.7 %
[2017-10-06 04:36] LABS: Calcium 8.2 mg/dL (8.6-10.3); Potassium 4.3 mEq/L (3.5-5.1)
[2017-10-06] MEDS: Albuterol 2.5 MG/3 ML NEBULIZER IH SCH ×3 (07:18→20:01)
--- NOTE | 2017-10-06 08:51 | Cardiology Progress Note ---
Date of Encounter: 10/06/17 Time of Encounter: 08:45 Assessment and Plan (1) Congestive heart failure Current Visit: Yes Status: Inactive Patient presents with CHF symptoms. TTE shows LVEF 20% with severe global systolic dysfunction, moderately dilated LV, severe biatrial dilation, mild MR/ TR, moderate PH. Etiology unclear. Also--primary team working up ?PE, unable to complete V/Q d/t orthopnea. BNP mildly elevated at 288--patient is morbidly obese. CXR shows vascular congestion. Mildly volume overload upon exam. Reports chronic orthopnea. Last TTE 2011 demonstrated preserved LVEF, 50-55%. Renal function worsening today, 1.98--recommend Nephrology consult to assist with diuresis and also for recommendations for possible LHC. Recommend LHC when able to r/o ischemic etiology--pt. will need to be able to lay flat and also when renal function stabilizes. Change betablocker to Toprol XL; hold ACEi for now given worsening SCr--resume by d/c if able. Cumulative I&O: +680. Strict I&O's, daily weights, Na/fluid restriction diet. Qualifiers: Heart failure type: systolic Heart failure chronicity: acute on chronic Qualified Code(s): I50.23 - Acute on chronic systolic (congestive) heart failure (2) FRED (obstructive sleep apnea) Current Visit: No Status: Chronic Reports compliance with CPAP Discussion w patient/family: The assessment and plan as outlined above was discussed with the patient and/or family members who expressed understanding and agreement. All questions were answered. Thank you for involving us in the care of your patient. Please call with any questions. The patient will be discussed and reviewed with Dr. High; changes to be made accordingly. Subjective Principal diagnosis: CHF Interval history: Seen and examined. No complaints upon exam today, continues to have chronic orthopnea. Objective Vital Signs, Last 4 Hours Temp Pulse Resp BP Pulse Ox 10/06/17 06:16 98.1 F 118 17 98/82 97 10/06/17 05:21 98 F 121 18 97/69 95 General: Conversant, No Apparent Distress, Other (morbidly obese) HEENT: Atraumatic, Normocephaly, Mucus Membranes Moist Cardiac: Reg Rate and Rhythm (tachycardiac), Normal S1 and S2 Lungs: Other (decreased) Neuro: Alert and responsive Abdomen: Soft Skin: No rashes noted on visualized skin Musculoskeletal: No Chest Wall Tenderness Extremities: No Edema, Normal Pulses Results 10/06/17 03:39 10/06/17 03:39 Lab Results 10/05/17 10/06/17 10/06/17 12:10 03:39 03:39 WBC 9.1 Hgb 10.6 L Hct 32.1 L Plt Count 362 APTT 63.9 H Sodium 133 L Potassium 4.3 Chloride 100 Carbon Dioxide 22 L BUN 72 H Creatinine 1.98 H Glucose 184 H Calcium 8.2 L Active Medications Acetaminophen (Tylenol) 650 mg PO Q6H PRN PRN Reason: Mild Pain/Fever Stop: 04/05/18 22:22 Acyclovir (Zovirax) 200 mg PO BID [facility]O PRN Reason: Protocol Stop: 04/06/18 14:31 Last Admin: 10/05/17 20:54 Dose: 200 mg Albuterol Sulfate (Albuterol Inhaler) 2 puff IH Q6H PRN PRN Reason: Dyspnea Stop: 04/06/18 14:26 Albuterol Sulfate (Proventil Neb) 2.5 mg IH TID PINO PRN Reason: Protocol Stop: 04/06/18 15:01 Last Admin: 10/06/17 07:18 Dose: 2.5 mg Allopurinol (Zyloprim) 300 mg PO DAILY [facility] Stop: 04/06/18 09:01 Last Admin: 10/05/17 08:47 Dose: 300 mg Atorvastatin Calcium (Lipitor) 20 mg PO HS [facility] Stop: 04/06/18 21:01 Last Admin: 10/05/17 20:49 Dose: 20 mg Dextrose/Water (Dextrose 50% (Syg)) 25 ml IVP AD PRN PRN Reason: Hypoglycemia Stop: 04/05/18 22:22 Docusate Sodium (Colace) 100 mg PO DAILY [facility]O PRN Reason: Protocol Stop: 04/06/18 09:01 Last Admin: 10/05/17 08:51 Dose: 100 mg Escitalopram Oxalate (Lexapro) 20 mg PO HS [facility] Stop: 04/06/18 21:01 Last Admin: 10/05/17 20:49 Dose: 20 mg Famotidine (Pepcid) 40 mg PO DAILY [facility] Stop: 04/06/18 09:01 Last Admin: 10/05/17 08:47 Dose: 40 mg Furosemide (Lasix) 40 mg IVP BIDDIURETIC [facility] Stop: 04/05/18 22:31 Last Admin: 10/05/17 17:15 Dose: 40 mg Gabapentin (Neurontin) 800 mg PO QID [facility] Stop: 04/06/18 09:01 Last Admin: 10/05/17 20:50 Dose: 800 mg Gemfibrozil (Lopid) 600 mg PO BIDWM [facility] Stop: 04/06/18 08:01 Last Admin: 10/05/17 17:15 Dose: 600 mg Glucagon (Glucagen) 1 mg IM ONCE PRN PRN Reason: Hypoglycemia Stop: 04/05/18 22:22 Glucose (Gluctose) 15 gm PO ONCE PRN PRN Reason: Hypoglycemia Stop: 04/05/18 22:22 Glucose (Gluctose) 30 gm PO ONCE PRN PRN Reason: Hypoglycemia Stop: 04/05/18 22:22 Hydroxyzine Pamoate (Hydroxyzine Pamoate) 100 mg PO HS [facility] Stop: 04/06/18 21:01 Last Admin: 10/05/17 20:50 Dose: 100 mg Dextrose (Dextrose 5%) 1,000 mls @ 100 mls/hr IVC .Q10H PRN PRN Reason: HYPOGLYCEMIA Stop: 04/05/18 22:22 Insulin Detemir (Levemir) 35 unit SQ HS [facility] Stop: 04/06/18 21:01 Last Admin: 10/05/17 20:54 Dose: 35 unit Insulin Human Lispro (Humalog) 0 units SQ TIDAC [facility] PRN Reason: Protocol Stop: 04/06/18 07:31 Last Admin: 10/05/17 17:15 Dose: 8 units Insulin Human Lispro (Humalog) 0 units SQ HS [facility] PRN Reason: Protocol Stop: 04/06/18 21:46 Last Admin: 10/05/17 23:38 Dose: 4 units Levalbuterol HCl (Xopenex) 1.25 mg IH [id number] PRN PRN Reason: Wheezing Stop: 04/05/18 22:46 Methocarbamol (Robaxin) 750 mg PO Q8H PRN PRN Reason: Muscle Spasm Stop: 04/06/18 14:26 Metoprolol Succinate (Toprol Xl) 12.5 mg PO DAILY [facility] Stop: 04/07/18 09:01 Multivitamins/Calcium (Thera M Plus) 1 tab PO DAILY [facility] Stop: 04/06/18 09:01 Last Admin: 10/05/17 08:47 Dose: 1 tab Naloxone HCl (Narcan) 0.4 mg IVP Q2MIN PRN PRN Reason: SEE COMMENTS Stop: 04/05/18 19:02 Oxycodone/Acetaminophen (Percocet 10/325) 1 each PO Q4HR PRN PRN Reason: Pain Last Admin: 10/05/17 21:03 Dose: 1 each Pharmacy Profile Note (Patient Taking Own Medication) 0 each PO BID [facility] Stop: 04/06/18 21:01 Last Admin: 10/05/17 21:05 Dose: 1 each Pharmacy Profile Note (Patient Taking Own Medication) 0 each PO DAILY [facility] Stop: 04/06/18 14:31 Last Admin: 10/05/17 17:14 Dose: 1 each Polyethylene Glycol (Miralax) 17 gm PO DAILY PRN PRN Reason: Constipation Stop: 04/06/18 07:58 Last Admin: 10/05/17 08:47 Dose: 17 gm Terazosin HCl (Hytrin) 5 mg PO HS [facility] Stop: 04/06/18 21:01 Last Admin: 10/05/17 20:54 Dose: 5 mg Vitamin D (Vitamin D) 1,000 unit PO DAILY [facility] Stop: 04/09/18 09:01 - Imaging and Cardiology Echo: report reviewed - EKG Interpretation EKG results cardiology: personally reviewed - VTE Reasons for not Prescribing Prophylaxis: Not indicated-Anticoagulated or INR therapeutic Documentation of Mechanical Device: Graduated compression elastic hosiery Consult Discharge Plan - Plan Referrals: NONE,PCP [Non-Partnered Physician] -
[2017-10-06] MEDS: Acyclovir 200 MG CAPSULE PO SCH ×2 (09:00→21:21)
[2017-10-06] MEDS: Famotidine 20 MG TABLET PO SCH (09:00)
[2017-10-06] MEDS: Gabapentin 400 MG CAPSULE PO SCH ×4 (09:00→21:21)
[2017-10-06] MEDS: Multivit/Ca/Min/Fe/FA 1 TAB TABLET PO SCH (09:00)
[2017-10-06] MEDS: (Omega-3/Dha/Epa/Fish Oil [Fish Oil 1,000 Mg Softgel]) PO SCH ×2 (09:02→21:23)
[2017-10-06] MEDS: Insulin LISPRO 300 UNITS/3 ML VIAL SQ SCH ×4 (09:03→21:22)
[2017-10-06] MEDS: (Linaclotide [Linzess] 290 MCG) PO SCH (09:03)
--- NOTE | 2017-10-06 11:15 | Internal Med Progress Note ---
Date of Encounter: 10/06/17 Time of Encounter: 11:13 - Assessment and plan (1) Congestive heart failure Current Visit: Yes Status: Inactive Assessment and plan: Patient had shortness of breath and chest pressure on admission. Troponin negative 3 Echocardiogram demonstrates left ventricular ejection fraction 20%. Moderately dilated left ventricle. Severe global left ventricular systolic dysfunction. Severely dilated left and right atrium. Abnormal wall motion throughout. Cardiology on board. Plan for [facility] when available. Awaiting call from cardiology to update on new echo results. Medications being adjusted. Creatinine has increased - diuretics currently on hold. Will need cardiac cath when renal function improved. PIOTR on hold due to renal issues. Patient has anaphylactic reaction to aspirin. Consulted Dr. Guerra for possible recommendations Qualifiers: Heart failure type: systolic Heart failure chronicity: acute on chronic Qualified Code(s): I50.23 - Acute on chronic systolic (congestive) heart failure (2) Diabetes Current Visit: No Status: Chronic Assessment and plan: Blood sugar improved this AM. Continue current diabetic regimen. Qualifiers: Diabetes mellitus type: type 2 Diabetes mellitus long term care administrator insulin use: with long term care administrator use Diabetes mellitus complication status: with kidney complications Diabetes mellitus complication detail: with chronic kidney disease Chronic kidney disease stage: stage 3 (moderate) Qualified Code(s): E11.22 - Type 2 diabetes mellitus with diabetic chronic kidney disease; N18.3 - Chronic kidney disease, stage 3 (moderate); N18.3 - Chronic kidney disease, stage 3 (moderate); Z79.4 - correction (current) use of insulin; Z79.4 - intermediate teacher (current) use of insulin; Z79.4 - correction (current) use of insulin; Z79.4 - correction (current) use of insulin (3) Acute on chronic renal failure Current Visit: No Status: Suspected Assessment and plan: Suspect worsening of renal function due to diuresis. Lasix on hold for now. Will ask for renal input regarding adjustments. Avoid nephrotoxins as able - PIOTR on hold. Recheck labs tomorrow. Qualifiers: Acute renal failure type: with acute tubular necrosis Chronic kidney disease stage: stage 3 (moderate) Qualified Code(s): N17.0 - Acute kidney failure with tubular necrosis; N18.3 - Chronic kidney disease, stage 3 (moderate ); N18.3 - Chronic kidney disease, stage 3 (moderate) (4) FRED (obstructive sleep apnea) Current Visit: No Status: Chronic Assessment and plan: CPAP at night. (5) Hypertension Current Visit: No Status: Chronic Assessment and plan: BP has been on the lower side most likely from diuresis. Lasix on hold. Norvasc stopped. Lisinopril held for renal function. Qualifiers: Hypertension type: essential hypertension Qualified Code(s): I10 - Essential (primary) hypertension (6) Morbid obesity with BMI of 45.0-49.9, adult Current Visit: No Status: Chronic Assessment and plan: Chronic issue (7) DVT prophylaxis Current Visit: No Status: Acute Assessment and plan: SCD for DVT prophylaxis. Pt up and ambulating in the room as well. - Time Spent With Patient Total time spent is greater than 50% in coordination of care (as documented) at patient's floor/unit and/or counseling patient: - Subjective Interval history: Mr Brown is currently admitted for acute resp distress due to acute exac systolic CHF. His creatinine has increased. He remains moderate to high risk due to potential for worsening clinical status. Mr Brown is up moving in his room. He is breathing much better. Edema improving. No fever. No cough. No CP. No GI issues. To have cardiac cath but needs renal function stabilized and ASA challenge. - Constitutional Vitals: Temp Pulse Resp BP Pulse Ox 98.1 F 118 18 98/82 92 10/06/17 06:16 10/06/17 06:16 10/06/17 07:18 10/06/17 06:16 10/06/17 07:18 General appearance: Present: cooperative, A&O X 3, answers questions appropriately - Head Head exam: Present: normocephalic - Eye Eye exam: Present: conjuntiva pink - ENT ENT exam: Present: mucous membranes dry - Respiratory Respiratory exam: Present: CTAB. Absent: rales, rhonchi, wheezes - Cardiovascular Cardiovascular exam: Present: RRR, tachycardia - GI/Abdominal GI/Abdominal exam: Present: normal bowel sounds, soft. Absent: tenderness - Extremities Exam Extremities exam: Present: warm. Absent: tenderness Additional comments: Edema present but improved. - Neurological Exam Neurological exam: Present: alert, oriented X3, no focal deficits - Skin Skin exam: Present: dry, warm Internal Medicine: Result - Labs CBC & Chem 7: 10/06/17 03:39 10/06/17 03:39 Labs: Short CBC 10/06/17 Range/Units 03:39 WBC 9.1 (4.3-11.1) K/mcL Hgb 10.6 L (12.9-16.9) g/dL Hct 32.1 L (37.5-50.1) % Plt Count 362 (140-400) K/mcL Neutrophils # 6.7 (1.6-8.9) K/mcL BMP 10/06/17 03:39 Sodium 133 L Potassium 4.3 Chloride 100 Carbon Dioxide 22 L BUN 72 H Creatinine 1.98 H Glucose 184 H Calcium 8.2 L - ABG Interpretation ABG results: PT/INR, D-dimer PT 18.1 Seconds (9.4-12.1) H 10/05/17 00:53 - Impressions Impressions Echocardiogram 10/05/17 22:29 Impressions: LVEF 20%. Moderately dilated left ventricle. Severe global left ventricular systolic dysfunction. Indeterminate diastolic function. Mildly dilated right ventricle. Mild right ventricular hypokinesis. Severely dilated left atrium. Severely dilated right atrium. Mild mitral regurgitation. Mild tricuspid regurgitation. Moderate pulmonary hypertension. Estimated RVSP is 44-49 mmHg. Left Ventricular Wall Motion: Rest Echo Findings The apex, apical inferior, mid inferior, basal inferior, apical anterior, mid anterior, basal anterior, apical septal, mid inferior septal, basal inferior septal, apical lateral, mid anterior lateral, basal anterior lateral, mid anterior septal, mid inferior lateral, basal anterior septal and basal inferior lateral campos were hypokinetic. Findings: Study Quality * Technically adequate exam. ECG Findings * Sinus tachycardia,bundle branch block. Left Ventricle * LVEF 20%. * Moderately dilated left ventricle. * Severe global left ventricular systolic dysfunction. * Indeterminate diastolic function. Right Ventricle * Mildly dilated right ventricle. * Mild right ventricular hypokinesis. Left Atrium * Severely dilated left atrium. Right Atrium * Severely dilated right atrium. Interatrial Septum * Interatrial septum not well evaluated. Aortic Valve * Trileaflet aortic valve. * No aortic regurgitation. * No aortic stenosis. Mitral Valve * Normal mitral valve structure. * Mild mitral regurgitation. * No mitral stenosis. Tricuspid Valve * Normal tricuspid valve structure. * Mild tricuspid regurgitation. * Moderate pulmonary hypertension. * Estimated RVSP is 44-49 mmHg. * Estimated RA pressure is 15-20 mmHg. Pulmonic Valve * Normal pulmonic valve structure and function. * No pulmonic regurgitation. Aorta * Normally sized aortic root. Pericardium * The pericardium appears normal. IVC * Normal IVC dimensions and inspiratory collapse. Pulmonary Artery * Pulmonary artery not well visualized. - VTE Reasons for not Prescribing Prophylaxis: Not indicated-Anticoagulated or INR therapeutic Documentation of Mechanical Device: Graduated compression elastic hosiery Consult Discharge Plan - Plan Referrals: NONE,PCP [Non-Partnered Physician] -
[2017-10-06] MEDS: Metoprolol XL (24 HR) Succ 25 MG TAB.ER.24H PO SCH (12:21)
--- NOTE | 2017-10-06 14:04 | Nephrology Consult Note ---
Date of Encounter: 10/06/17 Time of Encounter: 13:45 Assessment and Plan (1) MOISES (acute kidney injury) Current Visit: Yes Status: Acute Elevated SCr in the setting of acute CHF and diuresis Agree with holding diuretics today Will check urine studies Will obtain US of kidney Avoid nephrotoxins if possible, will hold off on LHC till SCr starts to stabilize (2) CKD (chronic kidney disease) stage 3, GFR 30-59 ml/min Current Visit: Yes Status: Chronic [place] GFR aroud 50 Will initiate workup (3) Congestive heart failure Current Visit: Yes Status: Acute diuretics on hold Strict I/Os advised LH when renal fxn stabilizes Qualifiers: Heart failure type: systolic Heart failure chronicity: acute Qualified Code(s): I50.21 - Acute systolic (congestive) heart failure History of Present Illness - Reason for Consult Consult date: 10/06/17 Acute Kidney Injury, Chronic Kidney Disease Requesting physician: David Pittman - History of Present Illness 52 y o male with pmh of DM, HTN, high chol and FRED admitted 10/04/17 as a transfer from [facility] where he presented with SOB and chest tightness and was treated during stay for CHF with diuretics. Echo showed EF of 20% with moderate pulmHTN. Cardiology on board with further workup planned including LHC. renal consulted for management of renal dysfxn with Scr noted at 1.98, GFR 36 from 1.77, GFR 41 yesterday. Prior MOISES noted in 01/2017 and baseline GFR typically 50s. Past Med Surg Social Fam HX - Past Medical History Medical history: arthritis, COPD, diabetes, GERD, hyperlipidemia, hypertension Psychiatric history: depression - Past Surgical History Surgical History: appendectomy - Social History Smoking Status: Never smoker Smokeless Tobacco Status: Yes Alcohol use: rarely Drug use: none - Family History Mother Hx Family Endocrine Disorder: Yes Father Hx Family Cardiac Disorders: Yes Medications and Allergies Albuterol Sulfate [Ventolin Hfa] 2 puff IH Q6H PRN 12/21/15 [History] Allopurinol [Zyloprim 300 MG] 300 mg PO DAILY 12/21/15 [History] Atorvastatin [Lipitor] 20 mg PO HS 12/21/15 [History] Docusate [Colace] 100 mg PO DAILY 12/21/15 [History] Escitalopram [Lexapro] 20 mg PO HS 12/21/15 [History] Furosemide [Lasix] 40 mg PO BID 12/21/15 [History] Gabapentin [Neurontin] 800 mg PO QID 12/21/15 [History] Gemfibrozil [Lopid] 600 mg PO BIDWM 12/21/15 [History] Insulin Glargine,Hum.rec.anlog [Lantus Solostar] 35 unit SQ HS 12/21/15 [History ] Liraglutide [Victoza 3-Christiano] 1.8 mg SQ DAILY 12/21/15 [History] Lisinopril [Zestril] 5 mg PO DAILY 12/21/15 [History] OxyCODONE/APAP 10/325 [Percocet 10/325 MG] 1 each PO Q4HR PRN 12/21/15 [History] Terazosin [Hytrin] 5 mg PO HS 12/21/15 [History] amLODIPine [Norvasc] 10 mg PO DAILY 12/21/15 [History] hydrOXYzine HCl [Hydroxyzine HCl] 100 mg PO HS 12/21/15 [History] Albuterol Neb [Proventil Neb] 2.5 mg IH TID 02/20/17 [History] Cholecalciferol (Vitamin D3) [Vitamin D3] 10,000 unit PO 2XW 02/20/17 [History] Linaclotide [Linzess] 290 mcg PO DAILY 02/20/17 [History] Metformin HCl [Glucophage] 1,000 mg PO BID 02/20/17 [History] Methocarbamol [Robaxin-750] 750 mg PO Q8H PRN 02/20/17 [History] Multivitamin with Iron [Multivitamins with Iron] 1 each PO DAILY 02/20/17 [ History] [place]-3/Dha/Epa/Fish Oil [Fish Oil 1,000 mg Softgel] 2,000 mg PO BID 02/20/17 [ History] Ranitidine HCl [Zantac] 300 mg PO DAILY 02/20/17 [History] Testosterone Cypionate [Depo-Testosterone] 200 mg IM Q2W 02/20/17 [History] glipiZIDE [Glipizide ER] 10 mg PO DAILY 02/20/17 [History] Acyclovir [Zovirax] 200 mg PO BID 10/05/17 [History] 3 Allergy/AdvReac Type Severity Reaction Status Date / Time aspirin Allergy Swelling Verified 10/05/17 09:23 of Lip/Tongue/Throat Penicillins Allergy Swelling Verified 10/05/17 09:23 of Lip/Tongue/Throat Sulfa (Sulfonamide Allergy Swelling Verified 10/05/17 09:23 Antibiotics) of Lip/Tongue/Throat Review of Systems All Systems: reviewed and no additional remarkable complaints except as stated ( 10 systems reviewed) Exam - Vital Signs Vital signs: Initial Vital Signs Temp Pulse Resp BP Pulse Ox 97.8 F 122 18 115/74 95 10/04/17 18:14 10/04/17 18:14 10/04/17 18:14 10/04/17 18:14 10/04/17 18:14 Vital Signs - Last 8 Hours Temp Pulse Resp BP Pulse Ox 10/06/17 09:00 98.1 F 122 15 109/83 99 10/06/17 07:18 18 92 10/06/17 06:16 98.1 F 118 17 98/82 97 Intake and Output 10/05/17 10/06/17 10/06/17 23:59 07:59 15:59 Intake Total 120 / 120 360 / 360 240 / 240 Output Total 0 / 0 1250 / 1250 Balance 120 / 120 360 / 360 -1010 / -1010 Intake: Oral 120 / 120 360 / 360 240 / 240 Output: Urine 0 / 0 1250 / 1250 Other: Meal Breakfast Percent of Meal Consumed 0% # Voids 1 1 Weight 150.5 kg Blood Glucose* 221 159 178 Patient Weight 10/06/17 23:59 Weight 150.5 kg - General Appearance General appearance: well-developed, well-nourished EENT: ATNC, mucous membranes moist Neck: no JVD, supple Respiratory: clear Cardiology: edema, normal S1, normal S2 Gastrointestinal: no tenderness, no guarding, obese Integumentary: warm and dry Neurologic: no focal deficit Musculoskeletal: no deformities Psychiatric: mood/affect appropriate Results - Lab Results 10/11/17 02:30 10/11/17 02:30 Most recent lab results Calcium 8.2 mg/dL (8.6-10.3) L 10/06/17 03:39 Magnesium 2.0 mg/dL (1.6-2.6) 10/05/17 00:53 Consult Discharge Plan - Plan Referrals: NONE,PCP [Non-Partnered Physician] -
[2017-10-06] MEDS: Insulin DETEMIR 100 UNIT/ML X5UNITS SQ SCH (21:20)
[2017-10-06] MEDS: hydrOXYzine pamoate 25 MG CAPSULE PO SCH (21:21)
[2017-10-06] MEDS: *HR* OxyCODONE/APAP 10/325 TABLET PO PRN (21:29)
[2017-10-06 22:31] LABS: Bilirubin,Urine Negative (Negative); Blood,Urine Negative (Negative); Clarity,Urine Clear (Clear); Color,Urine Yellow (Yellow); Glucose,Urine (UA) Normal (Normal); Ketones,Urine Negative (Negative); Leukocyte Esterase,Urine Negative (Negative); Nitrite,Urine Negative (Negative); PH,Urine 5.5 pH Units (5.0-8.0); Protein,Urine Negative (Neg-Trace); Specific Gravity,Urine 1.016 (1.010-1.025); Urobilinogen,Urine Normal (Normal)
[2017-10-06 22:39] LABS: Protein/Creatinine Ratio,Urine 0.07 mg/mg (0.00-0.20); Sodium, Urine 18.8 mEq/L
[2017-10-07] MEDS: Albuterol 2.5 MG/3 ML NEBULIZER IH SCH ×3 (00:33→15:19)
[2017-10-07 04:24] LABS: Hematocrit 32.9 % (37.5-50.1); Hemoglobin 11.1 g/dL (12.9-16.9); Mean Corpuscular HGB Conc 33.7 g/dL (31.6-35.5); Mean Corpuscular Hemoglobin 27.6 pg (28.0-33.3); Mean Corpuscular Volume 81.8 fL (83.0-100.0); Mean Platelet Volume 9.9 fL (9.4-12.4); Platelet Count 353 K/mcL (140-400); Red Blood Count 4.02 M/mcL (4.19-5.50); Red Cell Distribution Width 14.3 % (11.5-14.5)
[2017-10-07 04:43] LABS: Magnesium 2.3 mg/dL (1.6-2.6); Potassium 4.6 mEq/L (3.5-5.1)
[2017-10-07] MEDS: Gabapentin 400 MG CAPSULE PO SCH ×4 (08:11→21:47)
[2017-10-07] MEDS: (Linaclotide [Linzess] 290 MCG) PO SCH (08:12)
[2017-10-07] MEDS: Acyclovir 200 MG CAPSULE PO SCH ×2 (08:12→21:47)
[2017-10-07] MEDS: Famotidine 20 MG TABLET PO SCH (08:12)
[2017-10-07] MEDS: Multivit/Ca/Min/Fe/FA 1 TAB TABLET PO SCH (08:12)
[2017-10-07] MEDS: (Omega-3/Dha/Epa/Fish Oil [Fish Oil 1,000 Mg Softgel]) PO SCH ×2 (08:13→21:48)
[2017-10-07] MEDS: Insulin LISPRO 300 UNITS/3 ML VIAL SQ SCH ×4 (08:13→21:47)
[2017-10-07] MEDS: Metoprolol XL (24 HR) Succ 25 MG TAB.ER.24H PO SCH (08:13)
--- NOTE | 2017-10-07 09:34 | Cardiology Progress Note ---
Date of Encounter: 10/07/17 Time of Encounter: 09:20 Assessment and Plan (1) Congestive heart failure Current Visit: Yes Status: Inactive Patient presents with CHF symptoms. TTE shows LVEF 20% with severe global systolic dysfunction, moderately dilated LV, severe biatrial dilation, mild MR/ TR, moderate PH. Etiology unclear. Also--primary team working up ?PE, unable to complete V/Q d/t orthopnea. BNP mildly elevated at 288--patient is morbidly obese. CXR shows vascular congestion. Mildly volume overload upon exam. Reports chronic orthopnea. Last TTE 2011 demonstrated preserved LVEF, 50-55%. Renal function worsening today, 2.12--Nephrology consulted, appreciate and following recommendations. Recommend LHC when able to r/o ischemic etiology--pt. will need to be able to lay flat and also when renal function stabilizes. Change betablocker to Toprol XL; hold ACEi for now given worsening SCr--resume by d/c if able. Cumulative I&O: -1779. Strict I&O's, daily weights, Na/fluid restriction diet. Qualifiers: Heart failure type: systolic Heart failure chronicity: acute on chronic Qualified Code(s): I50.23 - Acute on chronic systolic (congestive) heart failure (2) FRED (obstructive sleep apnea) Current Visit: No Status: Chronic Reports compliance with CPAP Discussion w patient/family: The assessment and plan as outlined above was discussed with the patient and/or family members who expressed understanding and agreement. All questions were answered. Thank you for involving us in the care of your patient. Please call with any questions. The patient will be discussed and reviewed with Dr. High; changes to be made accordingly. Subjective Principal diagnosis: CHF Interval history: Seen and examined. No complaints upon exam today, continues to have chronic orthopnea. Nephrology consulted yesterday and following. SCr continues to worsen today. Objective Vital Signs, Last 4 Hours Temp Pulse Resp BP Pulse Ox 10/07/17 07:35 16 96 10/07/17 06:41 98.1 F 114 16 93/57 98 General: Other (morbidly obese) HEENT: Atraumatic, Normocephaly Neck: No JVD Cardiac: Reg Rate and Rhythm (tachycardiac) Lungs: Normal Breath Sounds Neuro: Alert and responsive Abdomen: Soft Skin: No rashes noted on visualized skin Musculoskeletal: No Chest Wall Tenderness Extremities: No Edema, Normal Pulses Results 10/07/17 03:40 10/07/17 03:40 Lab Results 10/07/17 10/07/17 03:40 03:40 WBC 8.5 Hgb 11.1 L Hct 32.9 L Plt Count 353 Sodium 130 L Potassium 4.6 Chloride 97 L Carbon Dioxide 20 L BUN 63 H Creatinine 2.12 H Glucose 204 H Calcium 8.0 L Magnesium 2.3 Active Medications Acetaminophen (Tylenol) 650 mg PO Q6H PRN PRN Reason: Mild Pain/Fever Stop: 04/05/18 22:22 Acyclovir (Zovirax) 200 mg PO BID [facility] PRN Reason: Protocol Stop: 04/06/18 14:31 Last Admin: 10/07/17 08:12 Dose: 200 mg Albuterol Sulfate (Albuterol Inhaler) 2 puff IH Q6H PRN PRN Reason: Dyspnea Stop: 04/06/18 14:26 Albuterol Sulfate (Proventil Neb) 2.5 mg IH TID [facility] PRN Reason: Protocol Stop: 04/06/18 15:01 Last Admin: 10/07/17 07:35 Dose: 2.5 mg Allopurinol (Zyloprim) 300 mg PO DAILY [facility] Stop: 04/06/18 09:01 Last Admin: 10/07/17 08:12 Dose: 300 mg Atorvastatin Calcium (Lipitor) 20 mg PO HS [facility] Stop: 04/06/18 21:01 Last Admin: 10/06/17 21:21 Dose: 20 mg Dextrose/Water (Dextrose 50% (Syg)) 25 ml IVP AD PRN PRN Reason: Hypoglycemia Stop: 04/05/18 22:22 Docusate Sodium (Colace) 100 mg PO DAILY [facility] PRN Reason: Protocol Stop: 04/06/18 09:01 Last Admin: 10/07/17 08:11 Dose: 100 mg Escitalopram Oxalate (Lexapro) 20 mg PO HS [facility] Stop: 04/06/18 21:01 Last Admin: 10/06/17 21:21 Dose: 20 mg Famotidine (Pepcid) 40 mg PO DAILY [facility] Stop: 04/06/18 09:01 Last Admin: 10/07/17 08:12 Dose: 40 mg Gabapentin (Neurontin) 800 mg PO QID [facility] Stop: 04/06/18 09:01 Last Admin: 10/07/17 08:11 Dose: 800 mg Gemfibrozil (Lopid) 600 mg PO BIDWM [facility] Stop: 04/06/18 08:01 Last Admin: 10/07/17 08:11 Dose: 600 mg Glucagon (Glucagen) 1 mg IM ONCE PRN PRN Reason: Hypoglycemia Stop: 04/05/18 22:22 Glucose (Gluctose) 15 gm PO ONCE PRN PRN Reason: Hypoglycemia Stop: 04/05/18 22:22 Glucose (Gluctose) 30 gm PO ONCE PRN PRN Reason: Hypoglycemia Stop: 04/05/18 22:22 Hydroxyzine Pamoate (Hydroxyzine Pamoate) 100 mg PO HS [facility] Stop: 04/06/18 21:01 Last Admin: 10/06/17 21:21 Dose: 100 mg Dextrose (Dextrose 5%) 1,000 mls @ 100 mls/hr IVC .Q10H PRN PRN Reason: HYPOGLYCEMIA Stop: 04/05/18 22:22 Insulin Detemir (Levemir) 35 unit SQ HS [facility] Stop: 04/06/18 21:01 Last Admin: 10/06/17 21:20 Dose: 35 unit Insulin Human Lispro (Humalog) 0 units SQ TIDAC [facility] PRN Reason: Protocol Stop: 04/06/18 07:31 Last Admin: 10/07/17 08:13 Dose: 8 units Insulin Human Lispro (Humalog) 0 units SQ HS [facility] PRN Reason: Protocol Stop: 04/06/18 21:46 Last Admin: 10/06/17 21:22 Dose: Not Given Levalbuterol HCl (Xopenex) 1.25 mg IH [id number] PRN PRN Reason: Wheezing Stop: 04/05/18 22:46 Methocarbamol (Robaxin) 750 mg PO Q8H PRN PRN Reason: Muscle Spasm Stop: 04/06/18 14:26 Metoprolol Succinate (Toprol Xl) 12.5 mg PO DAILY [facility] Stop: 04/07/18 09:01 Last Admin: 10/07/17 08:13 Dose: 12.5 mg Multivitamins/Calcium (Thera M Plus) 1 tab PO DAILY [facility] Stop: 04/06/18 09:01 Last Admin: 10/07/17 08:12 Dose: 1 tab Naloxone HCl (Narcan) 0.4 mg IVP Q2MIN PRN PRN Reason: SEE COMMENTS Stop: 04/05/18 19:02 Oxycodone/Acetaminophen (Percocet 10/325) 1 each PO Q4HR PRN PRN Reason: Pain Last Admin: 10/06/17 21:29 Dose: 1 each Pharmacy Profile Note (Patient Taking Own Medication) 0 each PO BID [facility] Stop: 04/06/18 21:01 Last Admin: 10/07/17 08:13 Dose: 1 each Pharmacy Profile Note (Patient Taking Own Medication) 0 each PO DAILY [facility] Stop: 04/06/18 14:31 Last Admin: 10/07/17 08:12 Dose: 1 each Polyethylene Glycol (Miralax) 17 gm PO DAILY PRN PRN Reason: Constipation Stop: 04/06/18 07:58 Last Admin: 10/06/17 21:47 Dose: 17 gm Terazosin HCl (Hytrin) 5 mg PO HS [facility] Stop: 04/06/18 21:01 Last Admin: 10/06/17 21:21 Dose: 5 mg Vitamin D (Vitamin D) 1,000 unit PO DAILY [facility] Stop: 04/09/18 09:01 - Imaging and Cardiology Echo: report reviewed - EKG Interpretation EKG results cardiology: personally reviewed - VTE Reasons for not Prescribing Prophylaxis: Not indicated-Anticoagulated or INR therapeutic Documentation of Mechanical Device: Intermittent pneumatic compression device Consult Discharge Plan - Plan Referrals: NONE,PCP [Non-Partnered Physician] -
[2017-10-07] MEDS: *HR* OxyCODONE/APAP 10/325 TABLET PO PRN (13:52)
--- NOTE | 2017-10-07 15:14 | Nephrology Progress Note ---
Date of Encounter: 10/07/17 Time of Encounter: 12:00 - Assessment and Plan (1) MOISES (acute kidney injury) Current Visit: Yes Status: Acute SCr worse today at 2.12, GFR 33 likey still from diuretics discontinued yesterday, will encourage po fluids still UOP actually quite good at 1700cc in the past 24hrs John hold off on LHC for now given worsening renal fxn US of kidney unremarkable Urine studies unremarkable PTH elevated, pending vitamin D results (2) CKD (chronic kidney disease) stage 3, GFR 30-59 ml/min Current Visit: Yes Status: Chronic Subjective Principal diagnosis: CHF Interval history: Pt seen and examined resting comfortably but arousable Objective - Vital Signs Vital signs: Vital Signs Temp Pulse Resp BP Pulse Ox 10/07/17 07:35 16 96 10/07/17 06:41 98.1 F 114 16 93/57 98 10/07/17 04:19 113 18 103/76 96 10/06/17 20:05 98.1 F 118 17 109/80 96 10/06/17 16:59 98.0 F 120 14 114/80 99 10/06/17 15:17 18 99 Intake and Output 10/06/17 10/07/17 10/07/17 23:59 07:59 15:59 Intake Total 200 / 200 0 / 0 280 / 280 Output Total 450 / 450 1200 / 1200 200 / 200 Balance -250 / -250 -1200 / -1200 80 / 80 Intake: Oral 200 / 200 0 / 0 280 / 280 Output: Urine 450 / 450 1200 / 1200 200 / 200 Other: Meal Lunch Breakfast Percent of Meal Consumed 100% 100% # Voids 0 Weight 151.1 kg Blood Glucose* 184 246 114 Patient Weight 10/07/17 23:59 Weight 151.1 kg - General Appearance General appearance: Present: well-developed, well-nourished EENT: Present: ATNC, mucous membranes moist Neck: Present: no JVD, supple Respiratory: Present: clear Cardiology: Present: edema, normal S1, normal S2 Gastrointestinal: Present: no tenderness, no guarding, obese Integumentary: Present: warm and dry Neurologic: Present: no focal deficit Musculoskeletal: Present: no deformities Psychiatric: Present: mood/affect appropriate - Lab 10/11/17 02:30 10/11/17 02:30 Most recent lab results Calcium 8.0 mg/dL (8.6-10.3) L 10/07/17 03:40 Magnesium 2.3 mg/dL (1.6-2.6) 10/07/17 03:40 Urine Creatinine 98 mg/dL 10/06/17 22:20 Urine Sodium 18.8 mEq/L 10/06/17 22:20 Urine Total Protein 7 mg/dL (1-14) 10/06/17 22:20 - VTE Reasons for not Prescribing Prophylaxis: Not indicated-Anticoagulated or INR therapeutic Documentation of Mechanical Device: Intermittent pneumatic compression device Consult Discharge Plan - Plan Referrals: NONE,PCP [Non-Partnered Physician] -
--- NOTE | 2017-10-07 16:45 | Internal Med Progress Note ---
Date of Encounter: 10/07/17 Time of Encounter: 14:30 - Assessment and plan (1) Constipation by delayed colonic transit Current Visit: Yes Status: Acute Assessment and plan: Miralax added scheduled daily. (2) Congestive heart failure Current Visit: Yes Status: Acute Assessment and plan: Patient had shortness of breath and chest pressure on admission. Troponin negative 3 Echocardiogram demonstrates left ventricular ejection fraction 20%. Moderately dilated left ventricle. Severe global left ventricular systolic dysfunction. Severely dilated left and right atrium. Abnormal wall motion throughout. Cardiology on board. Plan for [facility] when available. Awaiting call from cardiology to update on new echo results. Creatinine worse again today. Diuretic on hold. PIOTR on hold due to renal function. Recheck tomorrow. Patient has anaphylactic reaction to aspirin. Consulted Dr. Guerra for possible recommendations Qualifiers: Heart failure type: systolic Heart failure chronicity: acute on chronic Qualified Code(s): I50.23 - Acute on chronic systolic (congestive) heart failure (3) Diabetes Current Visit: No Status: Chronic Assessment and plan: Continue current regimen. Qualifiers: Diabetes mellitus type: type 2 Diabetes mellitus ferry terminal supervisor insulin use: with ferry terminal supervisor use Diabetes mellitus complication status: with kidney complications Diabetes mellitus complication detail: with chronic kidney disease Chronic kidney disease stage: stage 3 (moderate) Qualified Code(s): E11.22 - Type 2 diabetes mellitus with diabetic chronic kidney disease; N18.3 - Chronic kidney disease, stage 3 (moderate); N18.3 - Chronic kidney disease, stage 3 (moderate); Z79.4 - FDC (current) use of insulin; Z79.4 - keno terminal operator (current) use of insulin; Z79.4 - FDC (current) use of insulin; Z79.4 - keno terminal operator (current) use of insulin (4) Acute on chronic renal failure Current Visit: No Status: Suspected Assessment and plan: Renal function somewhat worsened again today. Meds on hold. Will recheck tomorrow. Qualifiers: Acute renal failure type: with acute tubular necrosis Chronic kidney disease stage: stage 3 (moderate) Qualified Code(s): N17.0 - Acute kidney failure with tubular necrosis; N18.3 - Chronic kidney disease, stage 3 (moderate ); N18.3 - Chronic kidney disease, stage 3 (moderate) (5) FRED (obstructive sleep apnea) Current Visit: No Status: Chronic Assessment and plan: CPAP at night. (6) Hypertension Current Visit: No Status: Chronic Assessment and plan: BP has been on the lower side most likely from diuresis. Lasix on hold. Norvasc stopped. Lisinopril held for renal function. Qualifiers: Hypertension type: essential hypertension Qualified Code(s): I10 - Essential (primary) hypertension (7) Morbid obesity with BMI of 45.0-49.9, adult Current Visit: No Status: Chronic Assessment and plan: Chronic issue (8) DVT prophylaxis Current Visit: No Status: Acute Assessment and plan: SCD for DVT prophylaxis. Pt up and ambulating in the room as well. - Time Spent With Patient Total time spent is greater than 50% in coordination of care (as documented) at patient's floor/unit and/or counseling patient: - Subjective Interval history: Mr Brown is currently admitted for acute resp distress due to acute exac systolic CHF. His creatinine has increased . He remains moderate to high risk due to potential for worsening clinical status. Mr Brown is doing OK. No fever. His breathing is good. No CP. Has been up walking in halls. Renal function worsened some again today. He is feeling constipated today. - Constitutional Vitals: Temp Pulse Resp BP Pulse Ox 98.1 F 114 15 111/76 98 10/07/17 16:00 10/07/17 16:00 10/07/17 16:00 10/07/17 16:00 10/07/17 16:00 General appearance: Present: cooperative, A&O X 3, answers questions appropriately - Head Head exam: Present: normocephalic - Eye Eye exam: Present: conjuntiva pink - ENT ENT exam: Present: mucous membranes dry - Respiratory Respiratory exam: Present: CTAB. Absent: rales, rhonchi, wheezes - Cardiovascular Cardiovascular exam: Present: RRR, tachycardia - GI/Abdominal GI/Abdominal exam: Present: soft. Absent: tenderness - Extremities Exam Extremities exam: Present: warm. Absent: tenderness - Neurological Exam Neurological exam: Present: alert, oriented X3, no focal deficits - Skin Skin exam: Present: dry, warm Internal Medicine: Result - Labs CBC & Chem 7: 10/07/17 03:40 10/07/17 03:40 Labs: Short CBC 10/07/17 Range/Units 03:40 WBC 8.5 (4.3-11.1) K/mcL Hgb 11.1 L (12.9-16.9) g/dL Hct 32.9 L (37.5-50.1) % Plt Count 353 (140-400) K/mcL BMP 10/07/17 03:40 Sodium 130 L Potassium 4.6 Chloride 97 L Carbon Dioxide 20 L BUN 63 H Creatinine 2.12 H Glucose 204 H Calcium 8.0 L Urine 10/06/17 Range/Units 22:20 Urine Color Yellow (Yellow) Urine Clarity Clear (Clear) Urine pH 5.5 (5.0-8.0) pH Units Ur Specific Crawford 1.016 (1.010-1.025) Urine Protein Negative (Neg-Trace) mg/dL Urine Glucose (UA) Normal (Normal) mg/dL - ABG Interpretation ABG results: PT/INR, D-dimer PT 18.1 Seconds (9.4-12.1) H 10/05/17 00:53 - Impressions Impressions Retroperitoneum Ultrasound 10/06/17 15:30 IMPRESSION: No evidence of hydronephrosis. D/ / 10/06/2017 16:28:33 Bear Saul MD / [facility] Interpreting Provider: Bear Saul MD - VTE Reasons for not Prescribing Prophylaxis: Not indicated-Anticoagulated or INR therapeutic Documentation of Mechanical Device: Intermittent pneumatic compression device Consult Discharge Plan - Plan Referrals: NONE,PCP [Non-Partnered Physician] -
[2017-10-07] MEDS: Insulin DETEMIR 100 UNIT/ML X5UNITS SQ SCH (21:49)
[2017-10-07] MEDS: hydrOXYzine pamoate 25 MG CAPSULE PO SCH (21:49)
[2017-10-08 04:04] LABS: Hematocrit 33.3 % (37.5-50.1); Hemoglobin 11.2 g/dL (12.9-16.9); Mean Corpuscular HGB Conc 33.6 g/dL (31.6-35.5); Mean Corpuscular Hemoglobin 27.5 pg (28.0-33.3); Mean Corpuscular Volume 81.6 fL (83.0-100.0); Mean Platelet Volume 9.7 fL (9.4-12.4); Platelet Count 330 K/mcL (140-400); Red Blood Count 4.08 M/mcL (4.19-5.50); Red Cell Distribution Width 14.4 % (11.5-14.5)
[2017-10-08 04:30] LABS: Potassium 4.8 mEq/L (3.5-5.1)
--- NOTE | 2017-10-08 09:08 | Event Note ---
Date of Encounter: 10/08/17 Time of Encounter: 09:00 - Cardiology Event Note Patient was discussed and reviewed with Dr. Munoz. LVEF 20%--etiology unclear. Recommend LHC when able to r/o ischemic etiology. Unfortunately renal function continues to decline, Nephrology on board-- appreciate recommendations. Patient also needs ASA desensitization, Dr. Guerra consulted. Please re-consult when patient is ready to proceed with LHC.
[2017-10-08] MEDS: Acyclovir 200 MG CAPSULE PO SCH ×2 (10:34→21:53)
[2017-10-08] MEDS: Cholecalciferol (D-3) 1,000 UNIT TABLET PO SCH (10:34)
[2017-10-08] MEDS: Gabapentin 400 MG CAPSULE PO SCH ×4 (10:34→21:00)
[2017-10-08] MEDS: Metoprolol XL (24 HR) Succ 25 MG TAB.ER.24H PO SCH (10:34)
[2017-10-08] MEDS: Famotidine 20 MG TABLET PO SCH (10:34)
[2017-10-08] MEDS: Multivit/Ca/Min/Fe/FA 1 TAB TABLET PO SCH (10:35)
[2017-10-08] MEDS: Insulin LISPRO 300 UNITS/3 ML VIAL SQ SCH ×5 (10:35→21:04)
[2017-10-08] MEDS: Albuterol 2.5 MG/3 ML NEBULIZER IH SCH ×3 (10:46→15:43)
[2017-10-08] MEDS: (Linaclotide [Linzess] 290 MCG) PO SCH (13:37)
[2017-10-08] MEDS: (Omega-3/Dha/Epa/Fish Oil [Fish Oil 1,000 Mg Softgel]) PO SCH ×2 (13:38→21:03)
--- NOTE | 2017-10-08 13:42 | Internal Med Progress Note ---
<Teddy Shoemaker - Last Filed: 10/08/17 17:23> Date of Encounter: 10/08/17 Time of Encounter: 10:30 - Assessment and plan (1) Congestive heart failure Current Visit: Yes Status: Acute Assessment and plan: Patient had shortness of breath and chest pressure on admission. Troponin negative 3 Echocardiogram demonstrates left ventricular ejection fraction 20%. Moderately dilated left ventricle. Severe global left ventricular systolic dysfunction. Severely dilated left and right atrium. Abnormal wall motion throughout. Cardiology on board. Plan for [facility] when renal function improves. Creatinine continues to elevate beyond prior; this is been preclusive to [facility] and cardio is presently signed off pending stabilization. -- will need to reconsult cardio when pt appropriate for [facility] -- Nephrology onboard and continually monitoring renal function on daily basis ; presently holding nephrotoxic antihypertensives including diuretics. -- Consulted Dr. Guerra for ASA desensitization prior to [facility]; she requires one- day notice to arrange for this procedure. -- Informed Dr. Guerra that cardio team unconditionally requests ASA- desensitization prior to [facility] due to high likelihood of resultant DAPT Qualifiers: Heart failure type: systolic Heart failure chronicity: acute on chronic Qualified Code(s): I50.23 - Acute on chronic systolic (congestive) heart failure (2) Acute on chronic renal failure Current Visit: Yes Status: Acute Assessment and plan: Renal function somewhat worsened again today. Meds on hold. Continue to reassess QAM and re-consult cardiology for [facility] as renal function improved/ stabilizes. -- Follow with any recommendations per nephrology Qualifiers: Acute renal failure type: with acute tubular necrosis Chronic kidney disease stage: stage 3 (moderate) Qualified Code(s): N17.0 - Acute kidney failure with tubular necrosis; N18.3 - Chronic kidney disease, stage 3 (moderate ); N18.3 - Chronic kidney disease, stage 3 (moderate) (3) Diabetes Current Visit: No Status: Chronic Assessment and plan: Continue current regimen. -- gave additional dose of detemir 10-U once and will cont other therapies as currently scheduled/dosed Qualifiers: Diabetes mellitus type: type 2 Diabetes mellitus electronic maintenance supervisor insulin use: with electronic maintenance supervisor use Diabetes mellitus complication status: with kidney complications Diabetes mellitus complication detail: with chronic kidney disease Chronic kidney disease stage: stage 3 (moderate) Qualified Code(s): E11.22 - Type 2 diabetes mellitus with diabetic chronic kidney disease; N18.3 - Chronic kidney disease, stage 3 (moderate); N18.3 - Chronic kidney disease, stage 3 (moderate); Z79.4 - fulfillment specialist (current) use of insulin; Z79.4 - fulfillment specialist (current) use of insulin; Z79.4 - fulfillment specialist (current) use of insulin; Z79.4 - fulfillment specialist (current) use of insulin (4) Hypertension Current Visit: No Status: Resolved Assessment and plan: BP has been on the lower side most likely from diuresis. Holding nephrotoxic antihypertensive for time being us patient does have worsening creatinine level on a daily basis. Qualifiers: Hypertension type: essential hypertension Qualified Code(s): I10 - Essential (primary) hypertension (5) FRED (obstructive sleep apnea) Current Visit: No Status: Chronic Assessment and plan: CPAP at night. (6) Morbid obesity with BMI of 45.0-49.9, adult Current Visit: No Status: Chronic Assessment and plan: Chronic issue (7) DVT prophylaxis Current Visit: No Status: Acute Assessment and plan: Continue SCDs and ambulation as tolerated (8) Constipation by delayed colonic transit Current Visit: Yes Status: Acute Assessment and plan: Miralax added scheduled daily. - Time Spent With Patient Total time spent is greater than 50% in coordination of care (as documented) at patient's floor/unit and/or counseling patient: - Subjective Interval history: Patient states feels well this a.m. and is not have any chest pain or shortness of breath. Patient is seated comfortably bedside chair. Patient is anxious to find out what the next steps are in his management and current status. Patient does have slightly worse MOISES compared to yesterday which is been a preclusive factor to proceeding with LHC. Patient also has history of ASA allergy and requires ASA desensitization. Spoke with Dr. Guerra who requests one-day notice prior to LHC in order to schedule patient for desensitization. Cardiology signed off for present considering that patient require stabilization of MOISES prior to LHC being done. Patient does continue to be mildly tachycardic with heart rate and low 100s, otherwise has been stable. - Constitutional Vitals: Temp Pulse Resp BP Pulse Ox 98.5 F 112 15 106/78 97 10/08/17 11:26 10/08/17 11:26 10/08/17 11:26 10/08/17 11:26 10/08/17 11:26 CONSTITUTIONAL: Alert and oriented X3, morbidly obese habitus, no acute distress HEAD: Normocephalic; atraumatic. EYES: PER, no scleral icterus, no drainage, no conjunctival injection NOSE: The nose is normal in appearance without rhinorrhea Oropharynx: pink/moist, no tonsillar edema/erythema/exudates RESP: NRD without use of accessory musculature, CTA b/l with no wheezes/rales/ rhonchi CARD: Regular rhythm, without murmurs, rubs, or gallop ABD: grossly normal, soft, non-tender SKIN: normal appearance, no pallor/diaphoresis,mottling,jaundice,cyanosis EXT: DP/Rad pulses 2+ and symmetrical; symmetrical pedal edema that is 2-3+ pitting PSYCH: appropriate mood/affect General appearance: Present: cooperative, A&O X 3, answers questions appropriately Internal Medicine: Result - Labs CBC & Chem 7: 10/08/17 03:40 10/08/17 03:40 Labs: Short CBC 10/08/17 Range/Units 03:40 WBC 9.4 (4.3-11.1) K/mcL Hgb 11.2 L (12.9-16.9) g/dL Hct 33.3 L (37.5-50.1) % Plt Count 330 (140-400) K/mcL BMP 10/08/17 03:40 Sodium 129 L Potassium 4.8 Chloride 97 L Carbon Dioxide 22 L BUN 87 H Creatinine 2.16 H Glucose 216 H Calcium 8.0 L - ABG Interpretation ABG results: PT/INR, D-dimer PT 18.1 Seconds (9.4-12.1) H 10/05/17 00:53 - VTE Reasons for not Prescribing Prophylaxis: Not indicated-Anticoagulated or INR therapeutic Documentation of Mechanical Device: Intermittent pneumatic compression device Consult Discharge Plan - Plan Referrals: NONE,PCP [Non-Partnered Physician] - <David iPttman - Last Filed: 10/08/17 18:22> Date of Encounter: 10/08/17 - Assessment and plan (1) Congestive heart failure Current Visit: Yes Status: Acute Qualifiers: Heart failure type: systolic Heart failure chronicity: acute on chronic Qualified Code(s): I50.23 - Acute on chronic systolic (congestive) heart failure (2) Acute on chronic renal failure Current Visit: Yes Status: Acute Qualifiers: Acute renal failure type: with acute tubular necrosis Chronic kidney disease stage: stage 3 (moderate) Qualified Code(s): N17.0 - Acute kidney failure with tubular necrosis; N18.3 - Chronic kidney disease, stage 3 (moderate ); N18.3 - Chronic kidney disease, stage 3 (moderate) (3) Diabetes Current Visit: No Status: Chronic Qualifiers: Diabetes mellitus type: type 2 Diabetes mellitus electronic maintenance supervisor insulin use: with fdc use Diabetes mellitus complication status: with kidney complications Diabetes mellitus complication detail: with chronic kidney disease Chronic kidney disease stage: stage 3 (moderate) Qualified Code(s): E11.22 - Type 2 diabetes mellitus with diabetic chronic kidney disease; N18.3 - Chronic kidney disease, stage 3 (moderate); N18.3 - Chronic kidney disease, stage 3 (moderate); Z79.4 - fulfillment specialist (current) use of insulin; Z79.4 - fulfillment specialist (current) use of insulin; Z79.4 - FDC (current) use of insulin; Z79.4 - FDC (current) use of insulin (4) Hypertension Current Visit: No Status: Resolved Qualifiers: Hypertension type: essential hypertension Qualified Code(s): I10 - Essential (primary) hypertension (5) FRED (obstructive sleep apnea) Current Visit: No Status: Chronic (6) DVT prophylaxis Current Visit: No Status: Acute (7) Morbid obesity with BMI of 45.0-49.9, adult Current Visit: No Status: Chronic (8) Constipation by delayed colonic transit Current Visit: Yes Status: Acute - Time Spent With Patient Total time spent is greater than 50% in coordination of care (as documented) at patient's floor/unit and/or counseling patient: - Constitutional Vitals: Temp Pulse Resp BP Pulse Ox 98.5 F 114 14 114/77 99 10/08/17 16:13 10/08/17 16:13 10/08/17 16:13 10/08/17 16:13 10/08/17 16:13 Internal Medicine: Result - Labs CBC & Chem 7: 10/08/17 03:40 10/08/17 03:40 Labs: Short CBC 10/08/17 Range/Units 03:40 WBC 9.4 (4.3-11.1) K/mcL Hgb 11.2 L (12.9-16.9) g/dL Hct 33.3 L (37.5-50.1) % Plt Count 330 (140-400) K/mcL BMP 10/08/17 03:40 Sodium 129 L Potassium 4.8 Chloride 97 L Carbon Dioxide 22 L BUN 87 H Creatinine 2.16 H Glucose 216 H Calcium 8.0 L - ABG Interpretation ABG results: PT/INR, D-dimer PT 18.1 Seconds (9.4-12.1) H 10/05/17 00:53 - Attending Attestation I examined this patient and my medical decision-making was reviewed with the Resident Physician on 10/08/17. I agree with the documented findings, disposition and treatment plan as described except to the extent set forth below. Mr Brown is currently admitted for acute systolic heart failure and MOISES. He remains moderate to high risk due to potential for worsening clinical status. Mr Brown feels OK. He is worried about the ASA. He is having some more edema. Lasix on hold. Renal function about the same today. Exam Alert Comfortable Mucus membranes dry Heart reg and tachy Lungs diminished but clear Abd soft Edema present I/P 1. CHF 2. MOISES Further diagnoses and plan as above.
[2017-10-08] MEDS ORDERED: Insulin DETEMIR 100 UNIT/ML X5UNITS SQ ONE (14:29)
--- NOTE | 2017-10-08 15:14 | Event Note ---
Date of Encounter: 10/08/17 Time of Encounter: 15:00 - Cardiology Event Note Discussed patient with Dr. Guerra. Will plan for ASA desensitization to start tomorrow. Transfer to ICU this evening. Will make NPO after MN, hold betablocker. Plan for LHC once renal function stabilizes later this week.
--- NOTE | 2017-10-08 15:17 | Allergy Consult Note ---
Date of Encounter: 10/08/17 Time of Encounter: 14:00 Assessment and Plan (1) Adverse effect of aspirin, initial encounter Current Visit: Yes Status: Acute Patient is a pleasant 52 year old male who has history of aspirin, penicillin and sulfa allergy. Cardiology requests that patient be desensitized to aspirin prior to his catherization. Patient has history of anaphylaxis with aspirin. 1. Will transfer to ICU for aspirin desensitization 2. I spoke with bed management and they will transfer patient to ICU 3. Hold beta yordan 4. NPO after midnight 5. Claritin and singulair tonight or tomorrow prior to procedure 6. I spoke to pharmacy regarding orders 7. I discussed plan with patient 8. I will test him to penicillin as an outpatient. History of Present Illness Reason for consult: Drug allergy (aspirin) History of present illness: Patient has a history of aspirin allergy. Roughly 20 years ago he had hives over his entire body, shortness of breath and tightness of his throat after taking aspirin. He went to the ER and was given shots that helped him. He has since avoided aspirin. He tolerates motrin and tylenol. He also has a penicillin allergy and sulfa allergy. He was told as a child that he was allergic to penicillin but does not remember what happened. Past Med Surg Social Fam HX - Past Medical History Medical history: arthritis, COPD, diabetes, GERD, hyperlipidemia, hypertension Psychiatric history: depression - Past Surgical History Surgical History: appendectomy - Social History Smoking Status: Never smoker Smokeless Tobacco Status: Yes Alcohol use: rarely Drug use: none - Family History Mother Hx Family Endocrine Disorder: Yes Father Hx Family Cardiac Disorders: Yes Medications and Allergies Albuterol Sulfate [Ventolin Hfa] 2 puff IH Q6H PRN 12/21/15 [History] Allopurinol [Zyloprim 300 MG] 300 mg PO DAILY 12/21/15 [History] Atorvastatin [Lipitor] 20 mg PO HS 12/21/15 [History] Docusate [Colace] 100 mg PO DAILY 12/21/15 [History] Escitalopram [Lexapro] 20 mg PO HS 12/21/15 [History] Furosemide [Lasix] 40 mg PO BID 12/21/15 [History] Gabapentin [Neurontin] 800 mg PO QID 12/21/15 [History] Gemfibrozil [Lopid] 600 mg PO BIDWM 12/21/15 [History] Insulin Glargine,Hum.rec.anlog [Lantus Solostar] 35 unit SQ HS 12/21/15 [History ] Liraglutide [Victoza 3-Christiano] 1.8 mg SQ DAILY 12/21/15 [History] Lisinopril [Zestril] 5 mg PO DAILY 12/21/15 [History] OxyCODONE/APAP 10/325 [Percocet 10/325 MG] 1 each PO Q4HR PRN 12/21/15 [History] Terazosin [Hytrin] 5 mg PO HS 12/21/15 [History] amLODIPine [Norvasc] 10 mg PO DAILY 12/21/15 [History] hydrOXYzine HCl [Hydroxyzine HCl] 100 mg PO HS 12/21/15 [History] Albuterol Neb [Proventil Neb] 2.5 mg IH TID 02/20/17 [History] Cholecalciferol (Vitamin D3) [Vitamin D3] 10,000 unit PO 2XW 02/20/17 [History] Linaclotide [Linzess] 290 mcg PO DAILY 02/20/17 [History] Metformin HCl [Glucophage] 1,000 mg PO BID 02/20/17 [History] Methocarbamol [Robaxin-750] 750 mg PO Q8H PRN 02/20/17 [History] Multivitamin with Iron [Multivitamins with Iron] 1 each PO DAILY 02/20/17 [ History] Presto-3/Dha/Epa/Fish Oil [Fish Oil 1,000 mg Softgel] 2,000 mg PO BID 02/20/17 [ History] Ranitidine HCl [Zantac] 300 mg PO DAILY 02/20/17 [History] Testosterone Cypionate [Depo-Testosterone] 200 mg IM Q2W 02/20/17 [History] glipiZIDE [Glipizide ER] 10 mg PO DAILY 02/20/17 [History] Acyclovir [Zovirax] 200 mg PO BID 10/05/17 [History] 3 Allergy/AdvReac Type Severity Reaction Status Date / Time aspirin Allergy Swelling Verified 10/05/17 09:23 of Lip/Tongue/Throat Penicillins Allergy Swelling Verified 10/05/17 09:23 of Lip/Tongue/Throat Sulfa (Sulfonamide Allergy Swelling Verified 10/05/17 09:23 Antibiotics) of Lip/Tongue/Throat ROS Allergy - Respiratory no cough, no wheezing - Integumentary Integumentary: no rash - Allergic/Immunologic no tongue swelling, no throat swelling, no uticaria, no wheezing Allergy Exam Initial Vital Signs Temp Pulse Resp BP Pulse Ox 97.8 F 122 18 115/74 95 10/04/17 18:14 10/04/17 18:14 10/04/17 18:14 10/04/17 18:14 10/04/17 18:14 - General physical appearance no distress, obese - ENT normal nares, no congestion. negative: nasal discharge - Respiratory normal respiratory effort, clear to auscultation - Integumentary no rash Results - Labs 10/08/17 03:40 10/08/17 03:40 Abnormal lab results RBC 4.08 M/mcL (4.19-5.50) L 10/08/17 03:40 Hgb 11.2 g/dL (12.9-16.9) L 10/08/17 03:40 Hct 33.3 % (37.5-50.1) L 10/08/17 03:40 MCV 81.6 fL (83.0-100.0) L 10/08/17 03:40 MCH 27.5 pg (28.0-33.3) L 10/08/17 03:40 PT 18.1 Seconds (9.4-12.1) H 10/05/17 00:53 APTT 63.9 Seconds (26.0-36.0) H 10/05/17 12:10 Sodium 129 mEq/L (136-145) L 10/08/17 03:40 Chloride 97 mEq/L (98-107) L 10/08/17 03:40 Carbon Dioxide 22 mEq/L (23-29) L 10/08/17 03:40 BUN 87 mg/dL (6-20) H 10/08/17 03:40 Creatinine 2.16 mg/dL (0.70-1.30) H 10/08/17 03:40 Est GFR ( Amer) 39 (> 60) L 10/08/17 03:40 Est GFR (Non-Af Amer) 32 (> 60) L 10/08/17 03:40 BUN/Creatinine Ratio 40 (6-26) H 10/08/17 03:40 Glucose 216 mg/dL (70-105) H 10/08/17 03:40 POC Glucose 251 mg/dL (70-99) H 10/07/17 16:18 Hemoglobin A1c 9.4 % (-5.6) H 10/04/17 23:02 Calculated Osmolality 301 (280-300) H 10/08/17 03:40 Calcium 8.0 mg/dL (8.6-10.3) L 10/08/17 03:40 B-Natriuretic Peptide 288 pg/mL (Less than 100) H 10/05/17 00:53 HDL Cholesterol 30 mg/dL (40-59) L 10/05/17 00:53 PTH Intact 130.3 pg/ml (10.0-65.0) H 10/07/17 03:40 Diabetes panel 10/08/17 Range/Units 03:40 Sodium 129 L (136-145) mEq/L Potassium 4.8 (3.5-5.1) mEq/L Chloride 97 L (98-107) mEq/L Carbon Dioxide 22 L (23-29) mEq/L BUN 87 H (6-20) mg/dL Creatinine 2.16 H (0.70-1.30) mg/dL Glucose 216 H (70-105) mg/dL Calcium 8.0 L (8.6-10.3) mg/dL Calcium panel 10/07/17 10/08/17 Range/Units 03:40 03:40 Calcium 8.0 L (8.6-10.3) mg/dL 25-OH Vitamin D Total 32 (30-80) ng/mL Pituitary panel 10/08/17 Range/Units 03:40 Sodium 129 L (136-145) mEq/L Potassium 4.8 (3.5-5.1) mEq/L Chloride 97 L (98-107) mEq/L Carbon Dioxide 22 L (23-29) mEq/L BUN 87 H (6-20) mg/dL Creatinine 2.16 H (0.70-1.30) mg/dL Glucose 216 H (70-105) mg/dL Calcium 8.0 L (8.6-10.3) mg/dL Adrenal panel 10/08/17 Range/Units 03:40 Sodium 129 L (136-145) mEq/L Potassium 4.8 (3.5-5.1) mEq/L Chloride 97 L (98-107) mEq/L Carbon Dioxide 22 L (23-29) mEq/L BUN 87 H (6-20) mg/dL Creatinine 2.16 H (0.70-1.30) mg/dL Glucose 216 H (70-105) mg/dL Calcium 8.0 L (8.6-10.3) mg/dL All other labs normal. Consult Discharge Plan - Plan Referrals: NONE,PCP [Non-Partnered Physician] -
[2017-10-08] MEDS ORDERED: Aspirin 81 MG TAB.CHEW PO ONE (15:20)
[2017-10-08] MEDS ORDERED: Aspirin desensitization 1 mg/ml PO ONE ×3 (15:20)
[2017-10-08] MEDS ORDERED: Loratadine 10 MG TABLET PO ONE ×2 (15:20→21:00)
[2017-10-08] MEDS ORDERED: Aspirin desensitization 4 mg/ml PO ONE ×4 (15:20)
[2017-10-08] MEDS ORDERED: Albuterol 2.5 MG/3 ML NEBULIZER IH PRN (15:46)
[2017-10-08] MEDS ORDERED: *HR* EPINEPHrine 1 MG/ML AMPUL IM PRN (15:47)
[2017-10-08] MEDS ORDERED: methylPREDNISolone 125 MG/2 ML VIAL IVP PRN (15:47)
[2017-10-08] MEDS ORDERED: *HR* EPINEPHrine 1 MG/10 ML SYRINGE IVP PRN (15:47)
[2017-10-08] MEDS ORDERED: Famotidine 20 MG/2 ML VIAL IVP PRN (15:47)
[2017-10-08] MEDS ORDERED: Milk and Molasses Enema 200 ML RC ONE (17:07)
[2017-10-08] MEDS: hydrOXYzine pamoate 25 MG CAPSULE PO SCH (20:59)
[2017-10-08] MEDS: Insulin DETEMIR 100 UNIT/ML X5UNITS SQ SCH (22:00)
--- NOTE | 2017-10-09 00:09 | Nephrology Progress Note ---
Date of Encounter: 10/09/17 Time of Encounter: 12:00 - Assessment and Plan (1) MOISES (acute kidney injury) Current Visit: Yes Status: Acute SCr slightly worse today at 2.16, GFR 33 but may be reaching a plateau, will encourage po fluids still UOP still quite good at 1800cc in the past 24hrs Will hold off on [facility] for now given worsening renal fxn US of kidney unremarkable Urine studies unremarkable PTH elevated, pending vitamin D results (2) CKD (chronic kidney disease) stage 3, GFR 30-59 ml/min Current Visit: Yes Status: Acute Baseline GFR around 50s (3) Congestive heart failure Current Visit: Yes Status: Acute Per cardiology but will wait on [facility] till renal fxn improving Qualifiers: Heart failure type: systolic Heart failure chronicity: acute on chronic Qualified Code(s): I50.23 - Acute on chronic systolic (congestive) heart failure Subjective Principal diagnosis: CHF Interval history: Pt seen and examined with no new complaints. sitting up in chair Objective - Vital Signs Vital signs: Vital Signs Temp Pulse Resp BP Pulse Ox 10/08/17 23:34 37 96 10/08/17 23:19 112 10/08/17 23:00 112 45 100/78 95 10/08/17 22:00 112 18 100/83 95 10/08/17 21:00 112 18 107/83 94 10/08/17 20:00 96.3 F L 112 26 108/86 90 10/08/17 19:59 112 10/08/17 16:13 98.5 F 114 14 114/77 99 10/08/17 15:52 98 10/08/17 15:44 15 97 10/08/17 11:26 98.5 F 112 15 106/78 97 10/08/17 10:48 14 99 10/08/17 09:00 99 10/08/17 07:10 98.5 F 112 14 106/81 99 10/08/17 05:05 110 18 106/75 95 Intake and Output 10/08/17 10/08/17 10/09/17 15:59 23:59 07:59 Intake Total 240 / 240 440 / 440 Output Total 750 / 750 Balance 240 / 240 -310 / -310 Intake: Oral 240 / 240 440 / 440 Output: Urine 750 / 750 Other: Meal Breakfast Dinner Percent of Meal Consumed 100% 100% Blood Glucose* 281 198 - General Appearance General appearance: Present: well-developed, well-nourished EENT: Present: ATNC, mucous membranes moist Neck: Present: no JVD, supple Respiratory: Present: clear Cardiology: Present: edema, normal S1, normal S2 Gastrointestinal: Present: no tenderness, no guarding, obese Integumentary: Present: warm and dry Neurologic: Present: no asterixis Musculoskeletal: Present: no deformities Psychiatric: Present: mood/affect appropriate, cooperative - Lab 10/08/17 03:40 10/08/17 03:40 Most recent lab results Calcium 8.0 mg/dL (8.6-10.3) L 10/08/17 03:40 Magnesium 2.3 mg/dL (1.6-2.6) 10/07/17 03:40 Urine Creatinine 98 mg/dL 10/06/17 22:20 Urine Sodium 18.8 mEq/L 10/06/17 22:20 Urine Total Protein 7 mg/dL (1-14) 10/06/17 22:20 - VTE Reasons for not Prescribing Prophylaxis: Not indicated-Anticoagulated or INR therapeutic Documentation of Mechanical Device: Intermittent pneumatic compression device Consult Discharge Plan - Plan Referrals: NONE,PCP [Non-Partnered Physician] -
[2017-10-09 05:12] LABS: Calcium 8.4 mg/dL (8.6-10.3); Potassium 4.5 mEq/L (3.5-5.1)
[2017-10-09] MEDS ORDERED: Aspirin desensitization 1 mg/ml PO ONE ×7 (07:30)
[2017-10-09] MEDS ORDERED: Aspirin desensitization 4 mg/ml PO ONE ×5 (07:30)
[2017-10-09] MEDS ORDERED: Aspirin 81 MG TAB.CHEW PO ONE (07:30)
[2017-10-09] MEDS ORDERED: Methocarbamol 750 MG TABLET PO PRN ×2 (10:47→16:13)
[2017-10-09] MEDS ORDERED: D5% in Water 1,000 ML IVC PRN ×2 (10:47→16:13)
[2017-10-09] MEDS ORDERED: *HR* OxyCODONE/APAP 10/325 TABLET PO PRN (10:47)
[2017-10-09] MEDS ORDERED: Levalbuterol Neb 1.25 MG/3 ML IH PRN ×2 (10:47→16:13)
[2017-10-09] MEDS ORDERED: *HR* Dextrose 50 % in Water (Syg) 50 ML SYRINGE IVP PRN ×2 (10:47→16:13)
[2017-10-09] MEDS ORDERED: Naloxone 0.4 MG/ML INJ IVP PRN ×2 (10:47→16:13)
[2017-10-09] MEDS ORDERED: Dextrose Gel 15 GM/37.5 ML TUBE PO PRN ×4 (10:47→16:13)
[2017-10-09] MEDS ORDERED: Acetaminophen 325 MG TABLET PO PRN ×2 (10:47→16:13)
[2017-10-09] MEDS ORDERED: Insulin LISPRO 300 UNITS/3 ML VIAL SQ SCH ×2 (11:30→21:00)
[2017-10-09] MEDS ORDERED: Cholecalciferol (D-3) 1,000 UNIT TABLET PO SCH (12:00)
[2017-10-09] MEDS ORDERED: Acyclovir 200 MG CAPSULE PO SCH (12:00)
[2017-10-09] MEDS ORDERED: Famotidine 20 MG TABLET PO SCH (12:00)
[2017-10-09] MEDS ORDERED: Multivit/Ca/Min/Fe/FA 1 TAB TABLET PO SCH (12:00)
[2017-10-09] MEDS ORDERED: Gabapentin 400 MG CAPSULE PO SCH (13:00)
--- NOTE | 2017-10-09 16:12 | Allergy Procedure Note ---
Date of procedure: 10/09/17 Pre-op diagnosis: aspirin allergy Post-op diagnosis: same Procedure: Aspirin Desensitization Patient with history of aspirin allergy. See consult note for HPI details. I discussed risk and benefits with patient. I explained to patient the risk of an allergic reaction including itching, hives, swelling, airway closure, diarrhea, vomiting, drop in blood pressure, heart attack, or . I have explained that he is at increased risk due to his recent beta yordan use. Written consent obtained. He has stopped his beta yordan for 24 hours prior to procedure. Patient was premedicated with singulair 10mg and claritin 10mg. Epinephrine, solumedrol, benadryl and pepcid at bedside. Dose 1- 0.1mg aspirin given PO, patient observed closely x 15 minutes, exam unchanged, patient denies any new complaints, vitals unchanged(see vitals recorded under vitals section) Dose 2- 0.3mg aspirin given PO, patient observed closely x 15 minutes, exam unchanged, patient denies any new complaints, vitals unchanged(see vitals recorded under vitals section) Dose 3- 1mg aspirin given PO, patient observed closely x 15 minutes, exam unchanged, patient denies any new complaints, vitals unchanged(see vitals recorded under vitals section) Dose 4- 3mg aspirin given PO, patient observed closely x 15 minutes, exam unchanged, patient denies any new complaints, vitals unchanged(see vitals recorded under vitals section) Dose 5-10mg aspirin given PO, patient observed closely x 15 minutes, exam unchanged, patient denies any new complaints, vitals unchanged(see vitals recorded under vitals section) Dose 6-20mgmg aspirin given PO, patient observed closely x 15 minutes, exam unchanged, patient denies any new complaints, vitals unchanged(see vitals recorded under vitals section) Dose 7-40mg aspirin given PO, patient observed closely x 15 minutes, exam unchanged, patient denies any new complaints, vitals unchanged(see vitals recorded under vitals section) Dose 8-81mg aspirin given PO, patient observed closely x 60 minutes, exam unchanged, patient denies any new complaints, vitals unchanged(see vitals recorded under vitals section) Patient has tolerated the procedure well. He is desensitized to aspirin. He should take 81mg daily. If he goes longer than 48 hours without aspirin he should then not take it and would need the procedure again. Total time spent with patient 3hours Anesthesia: none Was there an therapeutic recreation assistant present: Yes Harness Builder: Mary Anne Staton Condition: stable
[2017-10-09] MEDS: Insulin LISPRO 300 UNITS/3 ML VIAL SQ SCH ×2 (17:27→21:07)
[2017-10-09] MEDS: Gabapentin 400 MG CAPSULE PO SCH ×2 (17:42→20:58)
[2017-10-09] MEDS: *HR* OxyCODONE/APAP 10/325 TABLET PO PRN (17:46)
--- NOTE | 2017-10-09 18:13 | Internal Med Progress Note ---
<Jace Cole - Last Filed: 10/09/17 18:10> Date of Encounter: 10/09/17 Time of Encounter: 18:00 - Assessment and plan (1) Congestive heart failure Current Visit: Yes Status: Acute Assessment and plan: Patient had shortness of breath and chest pressure on admission. Troponin negative 3 Echocardiogram demonstrates left ventricular ejection fraction 20%. Moderately dilated left ventricle. Severe global left ventricular systolic dysfunction. Severely dilated left and right atrium. Abnormal wall motion throughout. Cardiology on board. Plan for [facility] when renal function improves. Creatinine continues to elevate beyond prior; this has been preclusive to [facility] and cardio is presently signed off pending stabilization. -- Nephrology onboard and continually monitoring renal function on daily basis ; presently holding nephrotoxic antihypertensives including diuretics. -- Patient tolerated aspirin desensitization well and will start patient on aspirin 81mg -- LHC on hold due to MOISES Qualifiers: Heart failure type: systolic Heart failure chronicity: acute on chronic Qualified Code(s): I50.23 - Acute on chronic systolic (congestive) heart failure (2) Acute on chronic renal failure Current Visit: Yes Status: Acute Assessment and plan: Patient continues to be in MOISES, but stable. Meds on hold. Continue to reassess QAM and re-consult cardiology for [facility] as renal function improved/ stabilizes. -- Follow with any recommendations per nephrology Qualifiers: Acute renal failure type: with acute tubular necrosis Chronic kidney disease stage: stage 3 (moderate) Qualified Code(s): N17.0 - Acute kidney failure with tubular necrosis; N18.3 - Chronic kidney disease, stage 3 (moderate ); N18.3 - Chronic kidney disease, stage 3 (moderate) (3) Diabetes Current Visit: No Status: Chronic Assessment and plan: Continue current regimen. -- gave additional dose of detemir 10-U once and will cont other therapies as currently scheduled/dosed Qualifiers: Diabetes mellitus type: type 2 Diabetes mellitus intermodal owner operator truck driver insulin use: with intermodal owner operator truck driver use Diabetes mellitus complication status: with kidney complications Diabetes mellitus complication detail: with chronic kidney disease Chronic kidney disease stage: stage 3 (moderate) Qualified Code(s): E11.22 - Type 2 diabetes mellitus with diabetic chronic kidney disease; N18.3 - Chronic kidney disease, stage 3 (moderate); N18.3 - Chronic kidney disease, stage 3 (moderate); Z79.4 - alf (current) use of insulin; Z79.4 - termite control servicer (current) use of insulin; Z79.4 - alf (current) use of insulin; Z79.4 - alf (current) use of insulin (4) Hypertension Current Visit: No Status: Resolved Assessment and plan: BP has been on the lower side most likely from diuresis. Holding nephrotoxic antihypertensive for time being us patient does have worsening creatinine level on a daily basis. Qualifiers: Hypertension type: essential hypertension Qualified Code(s): I10 - Essential (primary) hypertension (5) FRED (obstructive sleep apnea) Current Visit: No Status: Chronic Assessment and plan: CPAP at night. (6) Morbid obesity with BMI of 45.0-49.9, adult Current Visit: No Status: Chronic Assessment and plan: Chronic issue (7) DVT prophylaxis Current Visit: No Status: Acute Assessment and plan: Continue SCDs and ambulation as tolerated (8) Constipation by delayed colonic transit Current Visit: Yes Status: Acute Assessment and plan: Miralax added scheduled daily. Qualifiers: Qualified Code(s): I50.9 - Heart failure, unspecified - Time Spent With Patient Total time spent is greater than 50% in coordination of care (as documented) at patient's floor/unit and/or counseling patient: Greater than 35 minutes - Subjective Interval history: 52-year-old male presents from transfer from [facility] for sustained tachycardia, shortness of breath, chest tightness. Patient in ICU for desensitization of aspirin. Patient tolerated the procedure very well. He has no complaints of rash, pruritus, any signs of anaphylaxis. Patient has no complaints at this time. - Constitutional Vitals: Temp Pulse Resp BP Pulse Ox 97.6 F 114 14 107/73 93 10/09/17 15:47 10/09/17 13:00 10/09/17 13:00 10/09/17 13:00 10/09/17 13:00 General appearance: Present: cooperative, A&O X 3, answers questions appropriately - Head Head exam: Present: atraumatic, normocephalic - Eye Eye exam: Present: PERRL, conjuntiva pink, sclera anicteric Pupils: Present: PERRL - Neck Neck exam general surgery: Present: supple, trachea midline. Absent: lymphadenopathy - Respiratory Respiratory exam: Present: rales, respiratory distress. Absent: accessory muscle use, rhonchi, wheezes - Cardiovascular Cardiovascular exam: Present: RRR, +S1, +S2. Absent: diastolic murmur, gallop, rubs, systolic murmur - GI/Abdominal GI/Abdominal exam: Present: normal bowel sounds, soft, no peritoneal signs. Absent: distended, tenderness - Extremities Exam Extremities exam: Present: warm, radial pulses palpable and symmetrical. Absent : calf tenderness, cyanotic, pedal edema - Neurological Exam Neurological exam: Present: CN II-XII intact, oriented X3, no focal deficits. Absent: pronater drift, facial droop, speech deficit - Skin Skin exam: Present: dry, intact Internal Medicine: Result - Labs CBC & Chem 7: 10/08/17 03:40 10/09/17 04:36 Labs: BMP 10/09/17 04:36 Sodium 131 L Potassium 4.5 Chloride 98 Carbon Dioxide 24 BUN 84 H Creatinine 2.12 H Glucose 103 Calcium 8.4 L - ABG Interpretation ABG results: PT/INR, D-dimer PT 18.1 Seconds (9.4-12.1) H 10/05/17 00:53 - VTE Reasons for not Prescribing Prophylaxis: Not indicated-Anticoagulated or INR therapeutic Documentation of Mechanical Device: Intermittent pneumatic compression device Consult Discharge Plan - Plan Referrals: NONE,PCP [Non-Partnered Physician] - <Jeevan Cole - Last Filed: 10/09/17 18:22> Date of Encounter: 10/09/17 - Time Spent With Patient Total time spent is greater than 50% in coordination of care (as documented) at patient's floor/unit and/or counseling patient: - Constitutional Vitals: Temp Pulse Resp BP Pulse Ox 97.6 F 114 14 107/73 93 10/09/17 15:47 10/09/17 13:00 10/09/17 13:00 10/09/17 13:00 10/09/17 13:00 Internal Medicine: Result - Labs CBC & Chem 7: 10/08/17 03:40 10/09/17 04:36 Labs: BMP 10/09/17 04:36 Sodium 131 L Potassium 4.5 Chloride 98 Carbon Dioxide 24 BUN 84 H Creatinine 2.12 H Glucose 103 Calcium 8.4 L - ABG Interpretation ABG results: PT/INR, D-dimer PT 18.1 Seconds (9.4-12.1) H 10/05/17 00:53 - Attending Attestation I saw and examined this patient independently, and my medical decision making was reviewed with the resident physician on 10/09/2017. I agree with the documented findings, assessment and treatment plan as described in the progress note. ASA 81 mg daily started transfer out of ICU
[2017-10-09] MEDS ORDERED: Insulin DETEMIR 100 UNIT/ML X5UNITS SQ SCH (21:00)
[2017-10-09] MEDS ORDERED: (Omega-3/Dha/Epa/Fish Oil [Fish Oil 1,000 Mg Softgel]) PO SCH (21:00)
[2017-10-09] MEDS ORDERED: hydrOXYzine pamoate 25 MG CAPSULE PO SCH (21:00)
[2017-10-09] MEDS: hydrOXYzine pamoate 25 MG CAPSULE PO SCH (21:09)
[2017-10-09] MEDS: Acyclovir 200 MG CAPSULE PO SCH (21:09)
[2017-10-09] MEDS: (Omega-3/Dha/Epa/Fish Oil [Fish Oil 1,000 Mg Softgel]) PO SCH (21:09)
[2017-10-09] MEDS: Insulin DETEMIR 100 UNIT/ML X5UNITS SQ SCH (21:10)
--- NOTE | 2017-10-09 23:33 | Nephrology Progress Note ---
Date of Encounter: 10/09/17 Time of Encounter: 12:00 - Assessment and Plan (1) MOISES (acute kidney injury) Current Visit: Yes Status: Acute SCr slightly improved today at 2.12, GFR 33 definitely at a plateau, will encourage po fluids still UOP still quite good at 1550cc in the past 24hrs Will hold off on [facility] for now given worsening renal fxn US of kidney unremarkable Urine studies unremarkable PTH elevated, pending vitamin D results (2) CKD (chronic kidney disease) stage 3, GFR 30-59 ml/min Current Visit: Yes Status: Acute Baseline GFR around 50s (3) Congestive heart failure Current Visit: Yes Status: Acute Per cardiology but will wait on [facility] till renal fxn improving Qualifiers: Heart failure type: systolic Heart failure chronicity: acute on chronic Qualified Code(s): I50.23 - Acute on chronic systolic (congestive) heart failure Subjective Principal diagnosis: CHF Interval history: Pt seen and examined with no new complaints and currently undergoing aspirin desensitization Objective - Vital Signs Vital signs: Vital Signs Temp Pulse Resp BP Pulse Ox 10/09/17 23:23 111 14 124/94 93 10/09/17 23:13 14 109/90 92 10/09/17 23:00 110 10/09/17 20:42 97.6 F 10/09/17 19:31 109 16 109/90 92 10/09/17 19:00 110 10/09/17 15:47 97.6 F 10/09/17 13:00 114 14 107/73 93 10/09/17 12:00 114 14 119/105 93 10/09/17 11:00 98.0 F 113 16 122/95 93 10/09/17 10:00 113 16 106/79 95 10/09/17 09:00 114 18 133/98 93 10/09/17 08:00 113 18 113/77 97 10/09/17 07:00 114 18 114/89 97 10/09/17 06:00 112 16 113/91 92 10/09/17 05:03 97 F L 10/09/17 05:00 112 17 90/78 91 10/09/17 04:41 17 91 10/09/17 04:00 112 16 95/80 96 10/09/17 03:00 111 16 99/82 94 10/09/17 02:00 111 14 97/73 93 10/09/17 01:00 112 37 101/77 96 10/09/17 00:19 97 F L 10/08/17 23:34 37 96 Intake and Output 10/09/17 10/09/17 10/09/17 07:59 15:59 23:59 Intake Total 580 / 580 500 / 500 Output Total 1050 / 1050 950 / 950 850 / 850 Balance -1050 / -1050 -370 / -370 -350 / -350 Intake: Oral 580 / 580 500 / 500 Output: Urine 400 / 400 950 / 950 850 / 850 Catheter 650 / 650 Other: Meal Dinner Percent of Meal Consumed 90% Stool Size Small Stool Consistency formed Stool Characteristics Normal for Patient Stool Color Brown Weight 157 kg Blood Glucose* 85 233 Patient Weight 10/09/17 23:59 Weight 157 kg - General Appearance General appearance: Present: well-developed, well-nourished EENT: Present: ATNC, mucous membranes moist Neck: Present: no JVD, supple Respiratory: Present: clear Cardiology: Present: edema, normal S1, normal S2 Gastrointestinal: Present: no tenderness, no guarding, obese Integumentary: Present: warm and dry Neurologic: Present: no focal deficit Musculoskeletal: Present: no deformities Psychiatric: Present: mood/affect appropriate - Lab 10/08/17 03:40 10/09/17 04:36 Most recent lab results Calcium 8.4 mg/dL (8.6-10.3) L 10/09/17 04:36 Magnesium 2.3 mg/dL (1.6-2.6) 10/07/17 03:40 Urine Creatinine 98 mg/dL 10/06/17 22:20 Urine Sodium 18.8 mEq/L 10/06/17 22:20 Urine Total Protein 7 mg/dL (1-14) 10/06/17 22:20 - VTE Reasons for not Prescribing Prophylaxis: Not indicated-Anticoagulated or INR therapeutic Documentation of Mechanical Device: Intermittent pneumatic compression device Consult Discharge Plan - Plan Referrals: NONE,PCP [Non-Partnered Physician] -
[2017-10-10 03:44] LABS: Calcium 8.4 mg/dL (8.6-10.3); Potassium 4.3 mEq/L (3.5-5.1)
[2017-10-10] MEDS: Insulin LISPRO 300 UNITS/3 ML VIAL SQ SCH ×4 (07:28→20:50)
[2017-10-10] MEDS: Famotidine 20 MG TABLET PO SCH (07:29)
[2017-10-10] MEDS: Acyclovir 200 MG CAPSULE PO SCH ×2 (07:29→20:49)
[2017-10-10] MEDS: Gabapentin 400 MG CAPSULE PO SCH ×4 (07:29→22:12)
[2017-10-10] MEDS: Aspirin 81 MG TAB.CHEW PO SCH (07:30)
[2017-10-10] MEDS: Multivit/Ca/Min/Fe/FA 1 TAB TABLET PO SCH (07:30)
[2017-10-10] MEDS: Cholecalciferol (D-3) 1,000 UNIT TABLET PO SCH (07:30)
[2017-10-10] MEDS: (Linaclotide [Linzess] 290 MCG) PO SCH (07:32)
[2017-10-10] MEDS: (Omega-3/Dha/Epa/Fish Oil [Fish Oil 1,000 Mg Softgel]) PO SCH ×2 (07:32→21:05)
[2017-10-10] MEDS: *HR* OxyCODONE/APAP 10/325 TABLET PO PRN ×2 (07:36→15:41)
[2017-10-10 08:09] LABS: Alpha 2 Globulin (PEP) 1.03 g/dL (0.48-1.05); Beta Globulin (PEP) 0.71 g/dL (0.48-1.10)
[2017-10-10] MEDS ORDERED: Aspirin 81 MG TAB.CHEW PO SCH (09:00)
[2017-10-10] MEDS ORDERED: (Linaclotide [Linzess] 290 MCG) PO SCH (09:00)
[2017-10-10 09:44] LABS: Urine Collection Duration RANDOM hr; Urine Collection Volume RANDOM mL
[2017-10-10] MEDS: Metoprolol XL (24 HR) Succ 25 MG TAB.ER.24H PO SCH (10:08)
[2017-10-10 11:13] LABS: IFE Reflexed NOT DONE
--- NOTE | 2017-10-10 14:53 | Internal Med Progress Note ---
Date of Encounter: 10/10/17 Time of Encounter: 08:30 - Assessment and plan (1) Congestive heart failure Current Visit: Yes Status: Acute Assessment and plan: Newly diagnosed systolic CHF. Echocardiogram shows severely reduced EF around 20%, moderate LV dilation, indeterminate diastolic function, severe right and left atrial dilation, moderate pulmonary hypertension. Has received diuresis initially, now on hold due to acute kidney injury. We will start Toprol-XL due to continued tachycardia. PIOTR inhibitor not started due to acute kidney injury. Continue telemetry monitoring. Cardiology has been on board, plan for left heart catheterization when renal function is stable. Continue aspirin and statin. Patient was seen by security orderly, underwent aspirin desensitization, cleared to be started on baby aspirin daily. Qualifiers: Heart failure type: systolic Heart failure chronicity: acute Qualified Code(s): I50.21 - Acute systolic (congestive) heart failure (2) Acute on chronic renal failure Current Visit: Yes Status: Acute Assessment and plan: Previous values of serum creatinine have been widely fluctuating, the lowest being 1.38 from February 2017. Serum creatinine is currently improving. Hold Lasix and PIOTR inhibitor. Nephrology is on board, agree with current management. Noted to have significant urine output of close to 4 L since yesterday. Qualifiers: Acute renal failure type: unspecified Chronic kidney disease stage: stage 3 (moderate) Qualified Code(s): N17.9 - Acute kidney failure, unspecified; N18.3 - Chronic kidney disease, stage 3 (moderate); N18.3 - Chronic kidney disease, stage 3 (moderate) (3) CKD (chronic kidney disease) stage 3, GFR 30-59 ml/min Current Visit: Yes Status: Chronic (4) Constipation by delayed colonic transit Current Visit: Yes Status: Chronic Assessment and plan: Continue linzess and when necessary MiraLAX. (5) Diabetes Current Visit: Yes Status: Chronic Assessment and plan: Blood sugars noted to be fairly controlled. Continue Accu-Chek blood glucose monitoring with basal bolus insulin regimen. Diabetic diet. Hemoglobin A1c noted to be 9.4%. 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 Diabetes mellitus complication status: with kidney complications Diabetes mellitus complication detail: with chronic kidney disease Chronic kidney disease stage: stage 3 (moderate) Qualified Code(s): E11.22 - Type 2 diabetes mellitus with diabetic chronic kidney disease; N18.3 - Chronic kidney disease, stage 3 (moderate); N18.3 - Chronic kidney disease, stage 3 (moderate); Z79.4 - marine oil terminal superintendent (current) use of insulin; Z79.4 - [facility] (current) use of insulin; Z79.4 - [facility] (current) use of insulin; Z79.4 - [facility] (current) use of insulin (6) Morbid obesity with BMI of 45.0-49.9, adult Current Visit: Yes Status: Chronic (7) FRED (obstructive sleep apnea) Current Visit: Yes Status: Chronic (8) Hypertension Current Visit: Yes Status: Chronic Qualifiers: Hypertension type: essential hypertension Qualified Code(s): I10 - Essential (primary) hypertension - Time Spent With Patient Total time spent is greater than 50% in coordination of care (as documented) at patient's floor/unit and/or counseling patient: - Subjective Interval history: Feels better; improved weakness and dyspnea; no chest pain, palpitations, cough ; continues to have some leg swelling; - Constitutional Vitals: Temp Pulse Resp BP Pulse Ox 97.3 F L 112 23 118/82 97 10/10/17 11:59 10/10/17 11:59 10/10/17 11:59 10/10/17 11:59 10/10/17 11:59 General appearance: Present: cooperative, A&O X 3, morbidly obese, answers questions appropriately - Respiratory Respiratory exam: Present: CTAB, rales (faint bibasal crackles+). Absent: accessory muscle use, rhonchi, wheezes - Cardiovascular Cardiovascular exam: Present: RRR, +S1, +S2, tachycardia. Absent: diastolic murmur, gallop, rubs, systolic murmur - GI/Abdominal GI/Abdominal exam: Present: normal bowel sounds, soft (obese), no peritoneal signs. Absent: distended, tenderness - Extremities Exam Extremities exam: Present: pedal edema (1+ pitting pedal edema B/L), warm, radial pulses palpable and symmetrical. Absent: calf tenderness, cyanotic - Neurological Exam Neurological exam: Present: CN II-XII intact, oriented X3, no focal deficits. Absent: pronater drift, facial droop, speech deficit Internal Medicine: Result - Labs CBC & Chem 7: 10/08/17 03:40 10/10/17 02:41 Labs: [facility] [place] 10/10/17 02:41 Sodium 129 L Potassium 4.3 Chloride 98 Carbon Dioxide 23 BUN 76 H Creatinine 1.86 H Glucose 193 H Calcium 8.4 L - ABG Interpretation ABG results: PT/INR, D-dimer PT 18.1 Seconds (9.4-12.1) H 10/05/17 00:53 - VTE Reasons for not Prescribing Prophylaxis: Not indicated-Anticoagulated or INR therapeutic Documentation of Mechanical Device: Intermittent pneumatic compression device Consult Discharge Plan - Plan Referrals: NONE,PCP [Non-Partnered Physician] -
[2017-10-10] MEDS: Insulin DETEMIR 100 UNIT/ML X5UNITS SQ SCH (20:48)
[2017-10-10] MEDS: hydrOXYzine pamoate 25 MG CAPSULE PO SCH (20:49)
--- NOTE | 2017-10-10 22:59 | Nephrology Progress Note ---
Date of Encounter: 10/10/17 Time of Encounter: 12:00 - Assessment and Plan (1) MOISES (acute kidney injury) Current Visit: Yes Status: Acute SCr improving today at 1.86 GFR 38 which is great, continue po fluids still UOP still quite good at 2850cc in the past 24hrs Will hold off on [facility] for another day or so of renal recovery US of kidney unremarkable Urine studies unremarkable PTH elevated, vitamin D WNL (2) CKD (chronic kidney disease) stage 3, GFR 30-59 ml/min Current Visit: Yes Status: Chronic Baseline GFR around 50s (3) Congestive heart failure Current Visit: Yes Status: Acute Per cardiology but will wait on [facility] till renal fxn improving Qualifiers: Heart failure type: systolic Heart failure chronicity: acute on chronic Qualified Code(s): I50.23 - Acute on chronic systolic (congestive) heart failure Subjective Principal diagnosis: CHF Interval history: Pt seen and examined with no new complaints and currently undergoing aspirin desensitization Objective - Vital Signs Vital signs: Vital Signs Temp Pulse Resp BP Pulse Ox 10/10/17 20:38 97.8 F 10/10/17 19:51 109 10/10/17 15:43 97.5 F L 111 18 123/92 98 10/10/17 11:59 97.3 F L 112 23 118/82 97 10/10/17 07:43 97.3 F L 114 25 121/80 96 10/10/17 07:38 113 10/10/17 07:37 96 10/10/17 04:50 17 124/94 96 10/10/17 04:48 97.1 F L 10/10/17 03:00 111 10/10/17 01:13 22 124/94 94 10/10/17 00:16 97.1 F L 10/09/17 23:23 111 14 124/94 93 10/09/17 23:13 14 109/90 92 10/09/17 23:00 110 Intake and Output 10/10/17 10/10/17 10/10/17 07:59 15:59 23:59 Intake Total 120 / 120 360 / 360 600 / 600 Output Total 1300 / 1300 750 / 750 0 / 0 Balance -1180 / -1180 -390 / -390 600 / 600 Intake: Oral 120 / 120 360 / 360 600 / 600 Output: Urine 1300 / 1300 750 / 750 0 / 0 Other: Meal Lunch Percent of Meal Consumed 100% Weight 159.1 kg Blood Glucose* 180 194 Patient Weight 10/10/17 23:59 Weight 159.1 kg - General Appearance General appearance: Present: well-developed EENT: Present: ATNC, mucous membranes moist Neck: Present: no JVD, supple Respiratory: Present: clear Cardiology: Present: edema, normal S1, normal S2 Gastrointestinal: Present: no tenderness, no guarding, obese Integumentary: Present: warm and dry Neurologic: Present: no focal deficit Musculoskeletal: Present: no deformities Psychiatric: Present: mood/affect appropriate - Lab 10/11/17 02:30 10/11/17 02:30 Most recent lab results Calcium 8.4 mg/dL (8.6-10.3) L 10/10/17 02:41 Magnesium 2.3 mg/dL (1.6-2.6) 10/07/17 03:40 Urine Creatinine 98 mg/dL 10/06/17 22:20 Urine Sodium 18.8 mEq/L 10/06/17 22:20 Urine Total Protein SEE NOTE mg/d (10-140) 10/06/17 22:20 - VTE Reasons for not Prescribing Prophylaxis: Not indicated-Anticoagulated or INR therapeutic Documentation of Mechanical Device: Intermittent pneumatic compression device Consult Discharge Plan - Plan Referrals: NONE,PCP [Non-Partnered Physician] -
[2017-10-11 02:44] LABS: Basophils % 0.2 %; Hematocrit 38.3 % (37.5-50.1); Hemoglobin 12.7 g/dL (12.9-16.9); Immature Granulocytes % 0.7 % (0-4); Lymphocytes # 1.4 K/mcL (0.6-4.6); Lymphocytes % 12.3 %; Mean Corpuscular HGB Conc 33.2 g/dL (31.6-35.5); Mean Corpuscular Hemoglobin 27.8 pg (28.0-33.3); Mean Corpuscular Volume 83.8 fL (83.0-100.0); Mean Platelet Volume 9.9 fL (9.4-12.4); Monocytes # 1.3 K/mcL (0.0-1.3); Monocytes % 10.8 %; Neutrophils # 8.9 K/mcL (1.6-8.9); Platelet Count 355 K/mcL (140-400); Red Blood Count 4.57 M/mcL (4.19-5.50); Red Cell Distribution Width 14.9 % (11.5-14.5)
[2017-10-11 03:02] LABS: Calcium 8.5 mg/dL (8.6-10.3); Potassium 5.3 mEq/L (3.5-5.1)
[2017-10-11 04:04] LABS: ABG Base Excess -4 mEq/L (-2 to 3); ABG HCO3 22 mEq/L (21-27); ABG Oxygen Saturation 90 % (95-98); ABG PCO2 41 mmHg (35-45); ABG PH 7.34 pH Units (7.32-7.45); ABG PO2 62 mmHg (85-104); ABG TCO2 23 mEq/L (20-26)
[2017-10-11] MEDS: Multivit/Ca/Min/Fe/FA 1 TAB TABLET PO SCH (09:09)
[2017-10-11] MEDS: Famotidine 20 MG TABLET PO SCH (09:09)
[2017-10-11] MEDS: Gabapentin 400 MG CAPSULE PO SCH ×4 (09:10→21:12)
[2017-10-11] MEDS: Aspirin 81 MG TAB.CHEW PO SCH (09:10)
[2017-10-11] MEDS: Metoprolol XL (24 HR) Succ 25 MG TAB.ER.24H PO SCH (09:10)
[2017-10-11] MEDS: Acyclovir 200 MG CAPSULE PO SCH ×2 (09:10→21:12)
[2017-10-11] MEDS: Cholecalciferol (D-3) 1,000 UNIT TABLET PO SCH (09:10)
[2017-10-11] MEDS: Insulin LISPRO 300 UNITS/3 ML VIAL SQ SCH ×4 (09:11→21:23)
[2017-10-11] MEDS: (Omega-3/Dha/Epa/Fish Oil [Fish Oil 1,000 Mg Softgel]) PO SCH ×2 (09:11→21:20)
[2017-10-11] MEDS: (Linaclotide [Linzess] 290 MCG) PO SCH (09:12)
[2017-10-11] MEDS: *HR* OxyCODONE/APAP 10/325 TABLET PO PRN ×2 (12:46→17:50)
--- NOTE | 2017-10-11 13:35 | Cardiology Progress Note ---
Date of Encounter: 10/11/17 Time of Encounter: 13:30 Assessment and Plan (1) Congestive heart failure Current Visit: Yes Status: Acute Patient initially presented with CHF symptoms. TTE revealed severely reduced EF at 20% with severe global dysfunction, moderately dilated LV, severe biatrial dilation, mild MR/TR. Last TTE 2011 demonstrated preserved LVEF, 50-55% SOB and BLE edema multifactoral in the setting of CHF, severe FRED, CKD, and obesity. BNP mildly elevated at 288--patient is morbidly obese. Nephrology consulted during stay due to worsening renal function. Scr now stable. LHC was recommended when patient can lay flat and kidney function improves. Discussed with nephrology. Recommends mucomyst aura-procedure. Patient notes he can lay flat. SPO2 drops when he is sleeping without his bi- pap. Recommend trial of laying flat with bipap today. If he tolerates we will plan for possible LHC tomorrow with bipap. Continue toprol XL. No aceI due to kidney function. Cumulative I&O: -4120. CHF education. Strict I&O's, daily weights, Na/fluid restriction diet. Qualifiers: Heart failure type: systolic Heart failure chronicity: acute on chronic Qualified Code(s): I50.23 - Acute on chronic systolic (congestive) heart failure (2) FRED (obstructive sleep apnea) Current Visit: Yes Status: Chronic Reports compliance with CPAP at home. Discussion w patient/family: The assessment and plan as outlined above was discussed with the patient and/or family members who expressed understanding and agreement. All questions were answered. Thank you for involving us in the care of your patient. Please call with any questions. Subjective Principal diagnosis: CHF Interval history: mr. Brown is sitting in his chair watching TV. Denies chest pain or SOB while sitting. C/o increased abdominal girth and chronic orthopnea. Objective Vital Signs, Last 4 Hours Temp Pulse Resp BP Pulse Ox 10/11/17 12:00 97.1 F L 110 18 103/91 95 General: No Apparent Distress, Other (Morbidly obese male) HEENT: Atraumatic, Normocephaly, Mucus Membranes Moist, Other (Discolored and broken teeth noted. ) Neck: No JVD Cardiac: Reg Rate and Rhythm, Normal S1 and S2, No Murmur, Other (Sinus tachycardia on telemetry) Lungs: Normal Breath Sounds, No Wheeze, Rales, Rhonchi, Other (diminished bases) Neuro: Alert and responsive Abdomen: Soft, Non-Tender Skin: No rashes noted on visualized skin, Other (multiple tattoos) Musculoskeletal: No Chest Wall Tenderness Extremities: Other (Large BLE with 1+ edema.) Results 10/11/17 02:30 10/11/17 02:30 Lab Results 10/11/17 10/11/17 02:30 02:30 WBC 11.7 H Hgb 12.7 L D Hct 38.3 Plt Count 355 Sodium 129 L Potassium 5.3 H Chloride 97 L Carbon Dioxide 23 BUN 74 H Creatinine 1.91 H Glucose 146 H Calcium 8.5 L - Imaging and Cardiology Echo: report reviewed - EKG Interpretation EKG results cardiology: personally reviewed - VTE Reasons for not Prescribing Prophylaxis: Not indicated-Anticoagulated or INR therapeutic Documentation of Mechanical Device: Intermittent pneumatic compression device Consult Discharge Plan - Plan Referrals: NONE,PCP [Non-Partnered Physician] -
--- NOTE | 2017-10-11 15:41 | Internal Med Progress Note ---
Date of Encounter: 10/11/17 Time of Encounter: 08:20 - Assessment and plan (1) Congestive heart failure Current Visit: Yes Status: Acute Assessment and plan: Newly diagnosed systolic CHF. Echocardiogram shows severely reduced EF around 20%, moderate LV dilation, indeterminate diastolic function, severe right and left atrial dilation, moderate pulmonary hypertension. Has received diuresis initially, now on hold due to acute kidney injury. Continue Toprol-XL, tachycardia somewhat improved. PIOTR inhibitor not started due to acute kidney injury. Continue telemetry monitoring. Case d/w Cardiology regarding plans for [facility]- renal function has stabilized although he does have CKD, and plan for [facility] tomorrow on BiPAP of patient can tolerate; Continue aspirin and statin. Patient was seen by supervisor liquefaction, underwent aspirin desensitization, cleared to be started on baby aspirin daily. Qualifiers: Heart failure type: systolic Heart failure chronicity: acute Qualified Code(s): I50.21 - Acute systolic (congestive) heart failure (2) Acute on chronic renal failure Current Visit: Yes Status: Acute Assessment and plan: Previous values of serum creatinine have been widely fluctuating, the lowest being 1.38 from February 2017. Serum creatinine is currently stable, 1.91 today. Hold Lasix and PIOTR inhibitor. Nephrology is on board, agree with current management. Noted to have significant urine output with net negative fluid balance. Qualifiers: Acute renal failure type: unspecified Chronic kidney disease stage: stage 3 (moderate) Qualified Code(s): N17.9 - Acute kidney failure, unspecified; N18.3 - Chronic kidney disease, stage 3 (moderate); N18.3 - Chronic kidney disease, stage 3 (moderate) (3) CKD (chronic kidney disease) stage 3, GFR 30-59 ml/min Current Visit: Yes Status: Chronic (4) Constipation by delayed colonic transit Current Visit: Yes Status: Chronic Assessment and plan: Continue linzess and when necessary MiraLAX. (5) Diabetes Current Visit: Yes Status: Chronic Assessment and plan: Blood sugars noted to be fairly controlled. Continue Accu-Chek blood glucose monitoring with basal bolus insulin regimen. Diabetic diet. Hemoglobin A1c noted to be 9.4%. Qualifiers: Diabetes mellitus type: type 2 Diabetes mellitus middle or intermediate school principal insulin use: with middle or intermediate school principal use Diabetes mellitus complication status: with kidney complications Diabetes mellitus complication detail: with chronic kidney disease Chronic kidney disease stage: stage 3 (moderate) Qualified Code(s): E11.22 - Type 2 diabetes mellitus with diabetic chronic kidney disease; N18.3 - Chronic kidney disease, stage 3 (moderate); N18.3 - Chronic kidney disease, stage 3 (moderate); Z79.4 - local company intermodal truck driver (current) use of insulin; Z79.4 - local company intermodal truck driver (current) use of insulin; Z79.4 - nursing home (current) use of insulin; Z79.4 - nursing home (current) use of insulin (6) Morbid obesity with BMI of 45.0-49.9, adult Current Visit: Yes Status: Chronic (7) FRED (obstructive sleep apnea) Current Visit: Yes Status: Chronic Assessment and plan: CPAP at night. Patient did not qualify for BiPAP; (8) Hypertension Current Visit: Yes Status: Chronic Qualifiers: Hypertension type: essential hypertension Qualified Code(s): I10 - Essential (primary) hypertension - Time Spent With Patient Total time spent is greater than 50% in coordination of care (as documented) at patient's floor/unit and/or counseling patient: - Subjective Interval history: Feels better; improved weakness; ambulates well, does have some exertional dyspnea and leg swelling. no chest pain, palpitations, cough; - Constitutional Vitals: Temp Pulse Resp BP Pulse Ox 97.1 F L 110 18 103/91 95 10/11/17 12:00 10/11/17 12:00 10/11/17 12:00 10/11/17 12:00 10/11/17 12:00 General appearance: Present: A&O X 3, morbidly obese, answers questions appropriately - Respiratory Respiratory exam: Present: CTAB. Absent: accessory muscle use, rales, rhonchi, wheezes - Cardiovascular Cardiovascular exam: Present: RRR, +S1, +S2, tachycardia. Absent: diastolic murmur, gallop, rubs, systolic murmur - GI/Abdominal GI/Abdominal exam: Present: normal bowel sounds, soft (obese), no peritoneal signs. Absent: distended, tenderness - Extremities Exam Extremities exam: Present: full ROM, pedal edema (2+ pitting pedal edema B/L), warm, radial pulses palpable and symmetrical. Absent: calf tenderness, cyanotic - Neurological Exam Neurological exam: Present: CN II-XII intact, oriented X3, no focal deficits. Absent: pronater drift, facial droop, speech deficit Internal Medicine: Result - Labs CBC & Chem 7: 10/11/17 02:30 10/11/17 02:30 Labs: Short CBC 10/11/17 Range/Units 02:30 WBC 11.7 H (4.3-11.1) K/mcL Hgb 12.7 L D (12.9-16.9) g/dL Hct 38.3 (37.5-50.1) % Plt Count 355 (140-400) K/mcL Neutrophils # 8.9 (1.6-8.9) K/mcL BMP 10/11/17 02:30 Sodium 129 L Potassium 5.3 H Chloride 97 L Carbon Dioxide 23 BUN 74 H Creatinine 1.91 H Glucose 146 H Calcium 8.5 L - ABG Interpretation ABG results: ABG ABG pH 7.34 pH Units (7.32-7.45) 10/11/17 04:00 ABG pCO2 41 mmHg (35-45) 10/11/17 04:00 ABG pO2 62 mmHg (85-104) L 10/11/17 04:00 ABG O2 Saturation 90 % (95-98) L 10/11/17 04:00 PT/INR, D-dimer PT 18.1 Seconds (9.4-12.1) H 10/05/17 00:53 - VTE Reasons for not Prescribing Prophylaxis: Not indicated-Anticoagulated or INR therapeutic Documentation of Mechanical Device: Intermittent pneumatic compression device Consult Discharge Plan - Plan Referrals: NONE,PCP [Non-Partnered Physician] -
[2017-10-11] MEDS: hydrOXYzine pamoate 25 MG CAPSULE PO SCH (21:11)
[2017-10-11] MEDS: Insulin DETEMIR 100 UNIT/ML X5UNITS SQ SCH (22:01)
--- NOTE | 2017-10-11 23:20 | Nephrology Progress Note ---
Date of Encounter: 10/11/17 Time of Encounter: 12:00 - Assessment and Plan (1) MOISES (acute kidney injury) Current Visit: Yes Status: Acute SCr slightly worse today at 1.91 GFR 38, will monitor and continue po fluids still UOP remains good at 2250cc in the past 24hrs Will hold off on [facility] for another day or so of renal recovery, cardio wants to consider for tomorrow if pt able to lie flat with biPAP US of kidney unremarkable Urine studies unremarkable PTH elevated, vitamin D WNL (2) CKD (chronic kidney disease) stage 3, GFR 30-59 ml/min Current Visit: Yes Status: Chronic Baseline GFR around 50s (3) Congestive heart failure Current Visit: Yes Status: Acute Per cardiology but [facility] possibly tomorrow, will start mucomyst Qualifiers: Heart failure type: systolic Heart failure chronicity: acute on chronic Qualified Code(s): I50.23 - Acute on chronic systolic (congestive) heart failure Subjective Principal diagnosis: CHF Interval history: Pt seen and examined with no new complaints. s/p aspirin desensitization Objective - Vital Signs Vital signs: Vital Signs Temp Pulse Resp BP Pulse Ox 10/11/17 23:06 97.6 F 109 22 138/85 96 10/11/17 20:53 18 98 10/11/17 18:42 97.6 F 110 18 117/78 96 10/11/17 17:01 97.4 F L 112 18 114/85 95 10/11/17 12:00 97.1 F L 110 18 103/91 95 10/11/17 08:00 97.1 F L 110 18 119/86 10/11/17 04:03 26 117/59 95 10/11/17 04:02 97.4 F L 10/11/17 04:00 106 16 117/89 94 10/11/17 00:00 97.4 F L 106 20 109/91 95 Intake and Output 10/11/17 10/11/17 10/11/17 07:59 15:59 23:59 Intake Total 200 / 200 360 / 360 Output Total 0 / 0 800 / 800 0 / 0 Balance 200 / 200 -440 / -440 0 / 0 Intake: Oral 200 / 200 360 / 360 Output: Urine 0 / 0 800 / 800 0 / 0 Other: # Bowel Movements 0 Blood Glucose* 179 275 - General Appearance General appearance: Present: well-developed, well-nourished EENT: Present: ATNC, mucous membranes moist Neck: Present: no JVD, supple Respiratory: Present: clear Cardiology: Present: edema, normal S1, normal S2 Gastrointestinal: Present: no tenderness, no guarding, obese Integumentary: Present: warm and dry Neurologic: Present: no focal deficit Musculoskeletal: Present: no deformities Psychiatric: Present: mood/affect appropriate, cooperative - Lab 10/11/17 02:30 10/11/17 02:30 Most recent lab results ABG pH 7.34 pH Units (7.32-7.45) 10/11/17 04:00 ABG pCO2 41 mmHg (35-45) 10/11/17 04:00 ABG pO2 62 mmHg (85-104) L 10/11/17 04:00 ABG HCO3 22 mEq/L (21-27) 10/11/17 04:00 ABG O2 Saturation 90 % (95-98) L 10/11/17 04:00 Calcium 8.5 mg/dL (8.6-10.3) L 10/11/17 02:30 Magnesium 2.3 mg/dL (1.6-2.6) 10/07/17 03:40 Urine Creatinine 98 mg/dL 10/06/17 22:20 Urine Sodium 18.8 mEq/L 10/06/17 22:20 Urine Total Protein SEE NOTE mg/d (10-140) 10/06/17 22:20 - VTE Reasons for not Prescribing Prophylaxis: Not indicated-Anticoagulated or INR therapeutic Documentation of Mechanical Device: Intermittent pneumatic compression device Consult Discharge Plan - Plan Referrals: NONE,PCP [Non-Partnered Physician] -
[2017-10-12 03:40] LABS: Basophils % 0.2 %; Hematocrit 36.3 % (37.5-50.1); Lymphocytes # 1.7 K/mcL (0.6-4.6); Lymphocytes % 13.8 %; Mean Corpuscular HGB Conc 33.1 g/dL (31.6-35.5); Mean Corpuscular Hemoglobin 27.5 pg (28.0-33.3); Mean Corpuscular Volume 83.3 fL (83.0-100.0); Mean Platelet Volume 9.9 fL (9.4-12.4); Monocytes # 1.5 K/mcL (0.0-1.3); Monocytes % 11.7 %; Neutrophils # 9.1 K/mcL (1.6-8.9); Platelet Count 354 K/mcL (140-400); Red Blood Count 4.36 M/mcL (4.19-5.50); Red Cell Distribution Width 14.8 % (11.5-14.5); Segmented Neutrophils % 73.3 %
[2017-10-12 04:01] LABS: Calcium 8.3 mg/dL (8.6-10.3); Potassium 4.7 mEq/L (3.5-5.1)
[2017-10-12] MEDS: *HR* Acetylcysteine 20% 600 MG/3 ML ORAL SYRINGE PO SCH ×3 (04:05→20:52)
[2017-10-12] MEDS ORDERED: Levalbuterol Neb 1.25 MG/3 ML IH PRN (07:13)
[2017-10-12] MEDS: Insulin LISPRO 300 UNITS/3 ML VIAL SQ SCH ×5 (08:01→20:58)
[2017-10-12] MEDS: Cholecalciferol (D-3) 1,000 UNIT TABLET PO SCH ×2 (08:18→18:37)
[2017-10-12] MEDS: Omega-3/Dha/Epa/Fish Oil [Fish Oil 1,000 Mg Softgel] PO SCH ×2 (08:20→20:56)
[2017-10-12] MEDS: Multivit/Ca/Min/Fe/FA 1 TAB TABLET PO SCH ×2 (08:21→18:37)
[2017-10-12] MEDS: Gabapentin 400 MG CAPSULE PO SCH ×5 (08:21→20:52)
[2017-10-12] MEDS: Famotidine 20 MG TABLET PO SCH ×2 (08:22→18:37)
[2017-10-12] MEDS: Aspirin 81 MG TAB.CHEW PO SCH (08:23)
[2017-10-12] MEDS: Acyclovir 200 MG CAPSULE PO SCH ×3 (08:23→20:52)
[2017-10-12] MEDS: Metoprolol XL (24 HR) Succ 25 MG TAB.ER.24H PO SCH (08:26)
--- NOTE | 2017-10-12 08:54 | Event Note ---
Date of Encounter: 10/12/17 Time of Encounter: 08:51 - Cardiology Event Note Mr. Brown was able to lay flat for one hour on bipap with-out oxygen saturation. He also layed flat through the night with his bipap without problems. Denies chest pain. Plan for LHC today for ischemic evaluation as discussed. R/B/A including further injury to the kidney reviewed and he voiced understanding. He would like to proceed as recommended. I will discuss the use of bipap during LHC procedure today with interventionalist.
[2017-10-12 09:08] LABS: INR 1.3; Prothrombin Time 14.4 Seconds (9.4-12.1)
--- NOTE | 2017-10-12 10:44 | Nephrology Progress Note ---
Date of Encounter: 10/12/17 Time of Encounter: 09:00 - Assessment and Plan (1) MOISES (acute kidney injury) Current Visit: Yes Status: Acute I reviewed the progress notes, labs, med lists, vitals and imaging. Nonoliguric MOISES on CKD stage III in the setting of morbid obesity, and hemodynamic insults. Agree with holding diuretics and NAC (though the latter has less evidence based medicine). On exam, his volume status appears to be too hypervolemic for IVF, which has the best evidence at reducing the risks for MOISES from IV contrast. He will need diuretics and monitoring of his SCr after the IV contrast exposure. Discussed with the Hospitalist. I reviewed the hand-off notes from my colleague, plus the labs, meds, vitals, imaging and progress notes. Will continue to closely follow with you. (2) CKD (chronic kidney disease) stage 3, GFR 30-59 ml/min Current Visit: Yes Status: Chronic Appears to be his baseline level of renal function. Previous work up initiated by my colleague during this admission. (3) Peripheral edema Current Visit: Yes Status: Acute See above (4) Hyponatremia Current Visit: Yes Status: Acute Most likely hypervolemic hyponatremia in the setting of CHF. Will plan to utilize loop diuretics, but should avoid thiazide type diuretics and other meds that are know to have a higher potential for exacerbating hyponatremia. To follow a fluid restriction and not increase sodium in his diet. Slow corrections are safer corrections. (5) Hypertension Current Visit: Yes Status: Chronic I reviewed his home med list. When able, will plan to resume an PIOTR when his renal function would allow. Qualifiers: Hypertension type: essential hypertension Qualified Code(s): I10 - Essential (primary) hypertension (6) Morbid obesity with BMI of 45.0-49.9, adult Current Visit: Yes Status: Chronic Counseled him on weight loss. Subjective Principal diagnosis: CHF Interval history: Pt was s/e. He voiced that he did not have N/V/D/F/C, but that he did have more swelling than his normal. He said that he typically takes Lasix 40mg twice per day. He has an upcoming LHC, he said. Objective - Vital Signs Vital signs: Vital Signs Temp Pulse Resp BP Pulse Ox 10/12/17 10:31 111 16 101/76 91 10/12/17 08:08 109 115/83 10/12/17 07:35 97.8 F 108 98/64 97 10/12/17 04:47 97.4 F L 109 20 109/79 96 10/11/17 23:52 12 97 10/11/17 23:06 97.6 F 109 22 138/85 96 10/11/17 20:53 18 98 10/11/17 18:42 97.6 F 110 18 117/78 96 10/11/17 17:01 97.4 F L 112 18 114/85 95 10/11/17 12:00 97.1 F L 110 18 103/91 95 Intake and Output 10/11/17 10/12/17 10/12/17 23:59 07:59 15:59 Intake Total 50 / 50 Output Total 0 / 0 0 / 0 Balance 0 / 0 50 / 50 Intake: Oral 50 / 50 Output: Urine 0 / 0 0 / 0 Other: # Bowel Movements 0 Weight 160.118 kg Blood Glucose* 275 137 141 Patient Weight 10/12/17 23:59 Weight 160.118 kg - General Appearance General appearance: Present: well-developed, well-nourished, appears started age , obese EENT: Present: ATNC, PERRL, mucous membranes moist Neck: Present: supple Respiratory: Present: clear (but diminished in the bases (Right > left)) Cardiology: Present: no murmurs, edema (tense, pitting pretibial pitting bilaterally), regular rate, regular rhythm, normal S1, normal S2 Gastrointestinal: Present: normoactive bowel sounds, no tenderness, no guarding , obese Integumentary: Present: no rash, warm and dry Additional Comments: tattooed across chest, back and both UEs Neurologic: Present: no focal deficit, no asterixis, alert and oriented x3 Musculoskeletal: Present: no deformities, no erythema, no cyanosis Psychiatric: Present: mood/affect appropriate, cooperative - Lab 10/13/17 01:00 10/13/17 01:00 Most recent lab results ABG pH 7.34 pH Units (7.32-7.45) 10/11/17 04:00 ABG pCO2 41 mmHg (35-45) 10/11/17 04:00 ABG pO2 62 mmHg (85-104) L 10/11/17 04:00 ABG HCO3 22 mEq/L (21-27) 10/11/17 04:00 ABG O2 Saturation 90 % (95-98) L 10/11/17 04:00 Calcium 8.3 mg/dL (8.6-10.3) L 10/12/17 02:58 Magnesium 3.0 mg/dL (1.6-2.6) H 10/12/17 02:58 Urine Creatinine 98 mg/dL 10/06/17 22:20 Urine Sodium 18.8 mEq/L 10/06/17 22:20 Urine Total Protein SEE NOTE mg/d (10-140) 10/06/17 22:20 - Imaging Kidney/bladder ultrasound: image reviewed (No hydronephrosis) - VTE Reasons for not Prescribing Prophylaxis: Not indicated-Anticoagulated or INR therapeutic Documentation of Mechanical Device: Intermittent pneumatic compression device Consult Discharge Plan - Plan Referrals: Cecil Valle MD [Primary Care Provider] - (Web request sent on 10/12/17)
--- NOTE | 2017-10-12 11:15 | Pre-Sedation Evaluation ---
Pre-sedation evaluation - Pre-sedation checklist Date of procedure: 10/09/17 Procedure: LHC Recent Vitals: Last Vital Signs Temp 97.8 F 10/12/17 07:35 Pulse 111 10/12/17 10:31 Resp 16 10/12/17 10:31 BP 101/76 10/12/17 10:31 Pulse Ox 91 10/12/17 10:31 ASA Classification *see protocol: CLASS II-Mild systemic disease
[2017-10-12] MEDS ORDERED: *HR* Heparin 10,000 UNIT/10 ML VIAL ONE (13:07)
[2017-10-12] MEDS ORDERED: Heparin 1,000 UNITS/500 mL 500 ML ONE (13:07)
[2017-10-12] MEDS ORDERED: ISOVUE-370 200 ML INFUS..BTL IV ONE (13:07)
[2017-10-12] MEDS ORDERED: 0.9 % Sodium Chloride 1,000 ML ONE ×2 (13:07→14:45)
[2017-10-12] MEDS ORDERED: Nitroglycerin 1,000 MCG/10 ML VIAL IV ONE (13:08)
--- NOTE | 2017-10-12 15:11 | Internal Med Progress Note ---
Date of Encounter: 10/12/17 Time of Encounter: 08:30 - Assessment and plan (1) Congestive heart failure Current Visit: Yes Status: Acute Assessment and plan: Newly diagnosed systolic CHF. Echocardiogram shows severely reduced EF around 20%, moderate LV dilation, indeterminate diastolic function, severe right and left atrial dilation, moderate pulmonary hypertension. Has received diuresis initially, now on hold due to acute kidney injury. Continue Toprol-XL, will increase to 25mg daily; persistent tachycardia. PIOTR inhibitor not started due to acute kidney injury. Continue telemetry monitoring. Cardiology on board. Patient is able to lie down flat on BiPAP, plan for left heart catheterization today. Continue aspirin and statin. Patient was seen by english composition teacher, underwent aspirin desensitization, cleared to be started on baby aspirin daily. Qualifiers: Heart failure type: systolic Heart failure chronicity: acute Qualified Code(s): I50.21 - Acute systolic (congestive) heart failure (2) Acute on chronic renal failure Current Visit: Yes Status: Acute Assessment and plan: Previous values of serum creatinine have been widely fluctuating, the lowest being 1.38 from February 2017. Serum creatinine is currently somewhat worse, 2.05 today. Continue to Hold Lasix and PIOTR inhibitor. Nephrology is on board, agree with current management; started on Mucomyst prior to C; He will need low-dose diuretic at discharge due to significant peripheral edema and exertional dyspnea. Noted to have significant urine output with net negative fluid balance. Qualifiers: Acute renal failure type: unspecified Chronic kidney disease stage: stage 3 (moderate) Qualified Code(s): N17.9 - Acute kidney failure, unspecified; N18.3 - Chronic kidney disease, stage 3 (moderate); N18.3 - Chronic kidney disease, stage 3 (moderate) (3) CKD (chronic kidney disease) stage 3, GFR 30-59 ml/min Current Visit: Yes Status: Chronic (4) Constipation by delayed colonic transit Current Visit: Yes Status: Chronic (5) Diabetes Current Visit: Yes Status: Chronic Assessment and plan: Blood sugars noted to be fairly controlled. Continue Accu-Chek blood glucose monitoring with basal bolus insulin regimen. Diabetic diet. Hemoglobin A1c noted to be 9.4%. Qualifiers: Diabetes mellitus type: type 2 Diabetes mellitus intermodal owner operator truck driver insulin use: with intermodal owner operator truck driver use Diabetes mellitus complication status: with kidney complications Diabetes mellitus complication detail: with chronic kidney disease Chronic kidney disease stage: stage 3 (moderate) Qualified Code(s): E11.22 - Type 2 diabetes mellitus with diabetic chronic kidney disease; N18.3 - Chronic kidney disease, stage 3 (moderate); N18.3 - Chronic kidney disease, stage 3 (moderate); Z79.4 - [facility] (current) use of insulin; Z79.4 - [facility] (current) use of insulin; Z79.4 - [facility] (current) use of insulin; Z79.4 - [facility] (current) use of insulin (6) Morbid obesity with BMI of 45.0-49.9, adult Current Visit: Yes Status: Chronic (7) FRED (obstructive sleep apnea) Current Visit: Yes Status: Chronic Assessment and plan: CPAP at night. Patient did not qualify for BiPAP; (8) Hypertension Current Visit: Yes Status: Chronic Qualifiers: Hypertension type: essential hypertension Qualified Code(s): I10 - Essential (primary) hypertension - Time Spent With Patient Total time spent is greater than 50% in coordination of care (as documented) at patient's floor/unit and/or counseling patient: - Subjective Interval history: Denies chest pain, cough; has leg swelling and exertional dyspnea; awaiting [facility] today; - Constitutional Vitals: Temp Pulse Resp BP Pulse Ox 97.8 F 111 16 101/76 91 10/12/17 07:35 10/12/17 10:31 10/12/17 10:31 10/12/17 10:31 10/12/17 10:31 General appearance: Present: A&O X 3, morbidly obese, answers questions appropriately - Respiratory Respiratory exam: Present: decreased breath sounds (B/L bases), CTAB. Absent: accessory muscle use, rales, rhonchi, wheezes - Cardiovascular Cardiovascular exam: Present: RRR, +S1, +S2, tachycardia. Absent: diastolic murmur, gallop, rubs, systolic murmur - GI/Abdominal GI/Abdominal exam: Present: normal bowel sounds, soft (obese), no peritoneal signs. Absent: distended, tenderness - Extremities Exam Extremities exam: Present: pedal edema, warm, radial pulses palpable and symmetrical. Absent: calf tenderness, cyanotic Internal Medicine: Result - Labs CBC & Chem 7: 10/12/17 02:58 10/12/17 02:58 Labs: Short CBC 10/12/17 Range/Units 02:58 WBC 12.4 H (4.3-11.1) K/mcL Hgb 12.0 L (12.9-16.9) g/dL Hct 36.3 L (37.5-50.1) % Plt Count 354 (140-400) K/mcL Neutrophils # 9.1 H (1.6-8.9) K/mcL BMP 10/12/17 02:58 Sodium 130 L Potassium 4.7 Chloride 99 Carbon Dioxide 22 L BUN 75 H Creatinine 2.05 H Glucose 157 H Calcium 8.3 L - ABG Interpretation ABG results: ABG ABG pH 7.34 pH Units (7.32-7.45) 10/11/17 04:00 ABG pCO2 41 mmHg (35-45) 10/11/17 04:00 ABG pO2 62 mmHg (85-104) L 10/11/17 04:00 ABG O2 Saturation 90 % (95-98) L 10/11/17 04:00 PT/INR, D-dimer PT 14.4 Seconds (9.4-12.1) H 10/12/17 08:46 - VTE Reasons for not Prescribing Prophylaxis: Not indicated-Anticoagulated or INR therapeutic Documentation of Mechanical Device: Intermittent pneumatic compression device Consult Discharge Plan - Plan Referrals: Cecil Valle MD [Primary Care Provider] - (Web request sent on 10/12/17)
[2017-10-12] MEDS: (Omega-3/Dha/Epa/Fish Oil [Fish Oil 1,000 Mg Softgel]) PO SCH (18:37)
[2017-10-12] MEDS: (Linaclotide [Linzess] 290 MCG) PO SCH (18:37)
[2017-10-12] MEDS: hydrOXYzine pamoate 25 MG CAPSULE PO SCH (20:52)
[2017-10-12] MEDS: Insulin DETEMIR 100 UNIT/ML X5UNITS SQ SCH (20:59)
[2017-10-12] MEDS: *HR* OxyCODONE/APAP 10/325 TABLET PO PRN (21:01)
[2017-10-13 01:19] LABS: Hematocrit 36.5 % (37.5-50.1); Immature Granulocytes % 0.9 % (0-4); Lymphocytes % 11.6 %; Mean Corpuscular HGB Conc 32.9 g/dL (31.6-35.5); Mean Corpuscular Hemoglobin 27.4 pg (28.0-33.3); Mean Corpuscular Volume 83.3 fL (83.0-100.0); Mean Platelet Volume 9.8 fL (9.4-12.4); Monocytes % 11.1 %; Platelet Count 323 K/mcL (140-400); Red Blood Count 4.38 M/mcL (4.19-5.50); Red Cell Distribution Width 15.2 % (11.5-14.5); Segmented Neutrophils % 76.3 %
[2017-10-13 01:20] LABS: Basophils % 0.1 %; Lymphocytes # 1.2 K/mcL (0.6-4.6); Monocytes # 1.1 K/mcL (0.0-1.3); Neutrophils # 7.8 K/mcL (1.6-8.9); Nucleated Red Blood Cells 0.2 /100 WBC (0)
[2017-10-13 01:31] LABS: Calcium 8.6 mg/dL (8.6-10.3); Potassium 4.7 mEq/L (3.5-5.1)
--- NOTE | 2017-10-13 08:14 | Cardiology Progress Note ---
Date of Encounter: 10/13/17 Time of Encounter: 08:10 Assessment and Plan (1) Congestive heart failure Current Visit: Yes Status: Acute Patient initially presented with CHF symptoms. TTE revealed severely reduced EF at 20% with severe global dysfunction, moderately dilated LV, severe biatrial dilation, mild MR/TR. Last TTE 2011 demonstrated preserved LVEF, 50-55% BNP elevated to 288 on admit. [facility] completed yesterday. Normal coronaries. NICMP. There was no complication from his procedure. Right groin with pea sized knot. Denies pain. No ecchymosis. Ambulting without any problems. SOB and BLE edema multifactoral in the setting of CHF, severe FRED, CKD, and obesity. C/o increasing SOB and weight gain. Nephrology consulted during stay due to worsening renal function. Scr now stable. Continue toprol XL. Start aceI when okay with nephrology. Cumulative I&O: -3830. +290 for 24 hours. weight up 5 kg from admission. Will give IV lasix today. Will likely need low dose maintenance lasix at discharge with close following of kidney function. Scr at baseline 1.98 (1.7-2.1 ). CHF education reviewed. Strict I&O's, daily weights, Na/fluid restriction diet. Qualifiers: Heart failure type: systolic Heart failure chronicity: acute on chronic Qualified Code(s): I50.23 - Acute on chronic systolic (congestive) heart failure (2) FRED (obstructive sleep apnea) Current Visit: Yes Status: Chronic Reports compliance with CPAP at home. (3) DVT prophylaxis Current Visit: No Status: Acute Start SQ heprin DVT prophylaxis now that he is off heparin gtt. Discussion w patient/family: The assessment and plan as outlined above was discussed with the patient and/or family members who expressed understanding and agreement. All questions were answered. Thank you for involving us in the care of your patient. Please call with any questions. Subjective Principal diagnosis: CHF Interval history: mr. Brown is sitting eating his breakfast. Reports weight gain and SOB mildly increased. Denies chest pain. Objective Vital Signs, Last 4 Hours Temp Pulse Resp BP Pulse Ox 10/13/17 07:34 97.5 F L 108 17 114/75 96 10/13/17 04:40 97.6 F 109 22 112/79 96 General: Conversant, No Apparent Distress HEENT: Atraumatic, Normocephaly, Mucus Membranes Moist Neck: No JVD, Normal carotid pulses Cardiac: Reg Rate and Rhythm, Normal S1 and S2, No Murmur Lungs: Normal Breath Sounds, No Wheeze, Rales, Rhonchi Neuro: Alert and responsive, No focal deficits noted Abdomen: Soft, Non-Tender Skin: No rashes noted on visualized skin Musculoskeletal: No Chest Wall Tenderness Extremities: No Clubbing, No Cyanosis, No Edema, Normal Pulses, Other (right femoral dressing removed. Small non-painful lump noted. No ecchymosis. Ambulating with no problem. ) Results 10/13/17 01:00 10/13/17 01:00 Lab Results 10/12/17 10/13/17 10/13/17 08:46 01:00 01:00 WBC 10.2 Hgb 12.0 L Hct 36.5 L Plt Count 323 INR 1.3 Sodium 130 L Potassium 4.7 Chloride 100 Carbon Dioxide 22 L BUN 79 H Creatinine 1.98 H Glucose 214 H Calcium 8.6 - Imaging and Cardiology Echo: report reviewed - EKG Interpretation EKG results cardiology: personally reviewed - VTE Reasons for not Prescribing Prophylaxis: Not indicated-Anticoagulated or INR therapeutic Documentation of Mechanical Device: Intermittent pneumatic compression device Consult Discharge Plan - Plan Referrals: Cecil Valle MD [Primary Care Provider] - (Web request sent on 10/12/17)
[2017-10-13] MEDS ORDERED: Furosemide 20 MG/2 ML VIAL IVP ONE (08:19)
[2017-10-13] MEDS: Aspirin 81 MG TAB.CHEW PO SCH (08:54)
[2017-10-13] MEDS: Metoprolol XL (24 HR) Succ 25 MG TAB.ER.24H PO SCH ×2 (08:54→22:20)
[2017-10-13] MEDS: Gabapentin 400 MG CAPSULE PO SCH ×4 (08:54→22:20)
[2017-10-13] MEDS: Cholecalciferol (D-3) 1,000 UNIT TABLET PO SCH (08:55)
[2017-10-13] MEDS: Famotidine 20 MG TABLET PO SCH (08:55)
[2017-10-13] MEDS: Multivit/Ca/Min/Fe/FA 1 TAB TABLET PO SCH (08:56)
[2017-10-13] MEDS: Acyclovir 200 MG CAPSULE PO SCH ×2 (08:56→22:20)
[2017-10-13] MEDS: *HR* Acetylcysteine 20% 600 MG/3 ML ORAL SYRINGE PO SCH ×2 (09:02→22:19)
[2017-10-13] MEDS: Insulin LISPRO 300 UNITS/3 ML VIAL SQ SCH ×4 (09:04→22:25)
[2017-10-13] MEDS: *HR* Heparin 5,000 UNIT/ML VIAL SQ SCH ×2 (09:09→16:40)
--- NOTE | 2017-10-13 10:38 | Nephrology Progress Note ---
Date of Encounter: 10/13/17 Time of Encounter: 09:00 - Assessment and Plan (1) MOISES (acute kidney injury) Current Visit: Yes Status: Acute CKD with mild nonoliguric MOISES plus hypervolemic hyponatremia. Now that his SCr has been stable for the last three days, I recommend resuming diuretics. I read the [facility] report: it appears to be a nonischemic CMP and only 40mL of isotonic contrast. Though Contrast induced MOISES sometimes takes a few days to reveal itself, I suspect he is at lower risk for worsening MOISES since such a small amount of contrast was used. Will resume diuretics today. I counseled him to be sure to carefully collect his UOP, and he requested a hand-held urinary. Continue to follow a renal protective strategy as able. 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 Thank you (2) CKD (chronic kidney disease) stage 3, GFR 30-59 ml/min Current Visit: Yes Status: Chronic Appears to be his baseline level of renal function. Previous work up initiated by my colleague during this admission. (3) Peripheral edema Current Visit: Yes Status: Acute See above (4) Hyponatremia Current Visit: Yes Status: Acute Most likely hypervolemic hyponatremia in the setting of CHF. Will plan to utilize loop diuretics, but should avoid thiazide type diuretics and other meds that are know to have a higher potential for exacerbating hyponatremia. To follow a fluid restriction and not increase sodium in his diet. Slow corrections are safer corrections. (5) Hypertension Current Visit: Yes Status: Chronic I reviewed his home med list. When able, will plan to resume an PIOTR when his renal function would allow. Qualifiers: Hypertension type: essential hypertension Qualified Code(s): I10 - Essential (primary) hypertension (6) Morbid obesity with BMI of 45.0-49.9, adult Current Visit: Yes Status: Chronic Counseled him on weight loss. I counseled him for >50% of the 20 min encounter. Subjective Principal diagnosis: CHF Interval history: Pt was s/e. He voiced that he did not have N/V/D/F/C. He voiced that he was able to urinate fine without burning. He said that his swelling persists. He denied ever using illicit drugs such as cocaine, or being a drinker of alcohol. He voiced that he was feeling ill with a virus like set of symptoms prior to this hospitalization. Objective - Vital Signs Vital signs: Vital Signs Temp Pulse Resp BP Pulse Ox 10/13/17 07:34 97.5 F L 108 17 114/75 96 10/13/17 04:40 97.6 F 109 22 112/79 96 10/13/17 01:06 97.8 F 108 18 100/68 92 10/12/17 21:23 25 94 10/12/17 19:21 97.6 F 110 18 103/69 95 10/12/17 16:45 110 18 113/81 96 10/12/17 16:32 110 116 116/84 96 10/12/17 16:01 97.4 F L 98 20 127/84 96 10/12/17 15:53 97.3 F L 109 18 109/79 97 Intake and Output 10/12/17 10/13/17 10/13/17 23:59 07:59 15:59 Intake Total 240 / 240 0 / 0 Balance 240 / 240 0 / 0 Intake: Oral 240 / 240 0 / 0 Other: Meal Dinner Percent of Meal Consumed 100% Weight 153.586 kg Blood Glucose* 217 161 Patient Weight 10/13/17 23:59 Weight 153.586 kg - General Appearance Exam: General appearance: Present: well-developed, appears started age, obese EENT: Present: ATNC, PERRL, mucous membranes moist Neck: Present: supple Respiratory: Present: clear (but diminished in the bases (Right > left)) Cardiology: Present: no murmurs, edema (tense, pitting pretibial pitting bilaterally), regular rate, regular rhythm, normal S1, normal S2 Gastrointestinal: Present: normoactive bowel sounds, no tenderness, no guarding , obese Integumentary: Present: no rash, warm and dry, tattooed across chest, back and both UEs Neurologic: Present: no focal deficit, no asterixis, alert and oriented x3 Musculoskeletal: Present: no deformities, no erythema, no cyanosis Psychiatric: Present: mood/affect appropriate, cooperative - Lab 10/13/17 01:00 10/13/17 01:00 Most recent lab results ABG pH 7.34 pH Units (7.32-7.45) 10/11/17 04:00 ABG pCO2 41 mmHg (35-45) 10/11/17 04:00 ABG pO2 62 mmHg (85-104) L 10/11/17 04:00 ABG HCO3 22 mEq/L (21-27) 10/11/17 04:00 ABG O2 Saturation 90 % (95-98) L 10/11/17 04:00 Calcium 8.6 mg/dL (8.6-10.3) 10/13/17 01:00 Magnesium 3.0 mg/dL (1.6-2.6) H 10/12/17 02:58 Urine Creatinine 98 mg/dL 10/06/17 22:20 Urine Sodium 18.8 mEq/L 10/06/17 22:20 Urine Total Protein SEE NOTE mg/d (10-140) 10/06/17 22:20 - VTE Reasons for not Prescribing Prophylaxis: Not indicated-Anticoagulated or INR therapeutic Documentation of Mechanical Device: Intermittent pneumatic compression device Consult Discharge Plan - Plan Referrals: Cecil Valle MD [Primary Care Provider] - (Web request sent on 10/12/17)
[2017-10-13] MEDS: *HR* OxyCODONE/APAP 10/325 TABLET PO PRN (11:46)
[2017-10-13] MEDS: Omega-3/Dha/Epa/Fish Oil [Fish Oil 1,000 Mg Softgel] PO SCH ×2 (11:48→22:25)
[2017-10-13] MEDS: Furosemide 40 MG TABLET PO SCH ×2 (11:59→16:40)
--- NOTE | 2017-10-13 14:58 | Internal Med Progress Note ---
Date of Encounter: 10/13/17 Time of Encounter: 08:45 - Assessment and plan (1) Congestive heart failure Current Visit: Yes Status: Acute Assessment and plan: Newly diagnosed systolic CHF- nonischemic cardiomyopathy. Echocardiogram shows severely reduced EF around 20%, moderate LV dilation, indeterminate diastolic function, severe right and left atrial dilation, moderate pulmonary hypertension. Started on IV Lasix today. Continue fluid restriction and urine output monitoring. Continue Toprol-XL, will increase to 25mg BID per Cardiology; persistent tachycardia. PIOTR inhibitor not started due to acute kidney injury. Continue telemetry monitoring. Cardiology on board. Underwent left heart catheterization yesterday, showing normal coronaries. Continue aspirin and statin. Patient was seen by superintendent nonselling, underwent aspirin desensitization, cleared to be started on baby aspirin daily. Qualifiers: Heart failure type: systolic Heart failure chronicity: acute Qualified Code(s): I50.21 - Acute systolic (congestive) heart failure (2) Acute on chronic renal failure Current Visit: Yes Status: Acute Assessment and plan: Previous values of serum creatinine have been widely fluctuating, the lowest being 1.38 from February 2017. Serum creatinine is currently somewhat stable, 1.98 today; Nephrology is on board- started IV lasix today for cautious diuresis; monitor urine output. Plan to start PIOTR inhibitor in the future, if renal function is stable. Qualifiers: Acute renal failure type: unspecified Chronic kidney disease stage: stage 3 (moderate) Qualified Code(s): N17.9 - Acute kidney failure, unspecified; N18.3 - Chronic kidney disease, stage 3 (moderate); N18.3 - Chronic kidney disease, stage 3 (moderate) (3) CKD (chronic kidney disease) stage 3, GFR 30-59 ml/min Current Visit: Yes Status: Chronic (4) Constipation by delayed colonic transit Current Visit: Yes Status: Chronic (5) Diabetes Current Visit: Yes Status: Chronic Assessment and plan: Blood sugars noted to be fairly controlled. Continue Accu-Chek blood glucose monitoring with basal bolus insulin regimen. Diabetic diet. Hemoglobin A1c noted to be 9.4%. Qualifiers: Diabetes mellitus type: type 2 Diabetes mellitus mcc insulin use: with mcc use Diabetes mellitus complication status: with kidney complications Diabetes mellitus complication detail: with chronic kidney disease Chronic kidney disease stage: stage 3 (moderate) Qualified Code(s): E11.22 - Type 2 diabetes mellitus with diabetic chronic kidney disease; N18.3 - Chronic kidney disease, stage 3 (moderate); N18.3 - Chronic kidney disease, stage 3 (moderate); Z79.4 - retirement (current) use of insulin; Z79.4 - retirement (current) use of insulin; Z79.4 - retirement (current) use of insulin; Z79.4 - manager long term care (current) use of insulin (6) Morbid obesity with BMI of 45.0-49.9, adult Current Visit: Yes Status: Chronic (7) FRED (obstructive sleep apnea) Current Visit: Yes Status: Chronic Assessment and plan: CPAP at night. Patient did not qualify for BiPAP; (8) Hypertension Current Visit: Yes Status: Chronic Qualifiers: Hypertension type: essential hypertension Qualified Code(s): I10 - Essential (primary) hypertension - Time Spent With Patient Total time spent is greater than 50% in coordination of care (as documented) at patient's floor/unit and/or counseling patient: - Subjective Interval history: Denies chest pain, cough; has leg swelling and exertional dyspnea; underwent LHC yesterday, which was normal; started on diuretics today; - Constitutional Vitals: Temp Pulse Resp BP Pulse Ox 97.6 F 110 12 104/71 96 10/13/17 11:35 10/13/17 11:35 10/13/17 11:35 10/13/17 11:35 10/13/17 11:35 General appearance: Present: A&O X 3, morbidly obese, answers questions appropriately - Respiratory Respiratory exam: Present: decreased breath sounds (at right base), CTAB, rales (faint crackles at left base'). Absent: accessory muscle use, rhonchi, wheezes - Cardiovascular Cardiovascular exam: Present: RRR, +S1, +S2, tachycardia. Absent: diastolic murmur, gallop, rubs, systolic murmur - GI/Abdominal GI/Abdominal exam: Present: normal bowel sounds, soft (obese), no peritoneal signs. Absent: distended, tenderness - Extremities Exam Extremities exam: Present: pedal edema (tense pitting pedal edema B/L), warm, radial pulses palpable and symmetrical. Absent: calf tenderness, cyanotic Internal Medicine: Result - Labs CBC & Chem 7: 10/13/17 01:00 10/13/17 01:00 Labs: Short CBC 10/13/17 Range/Units 01:00 WBC 10.2 (4.3-11.1) K/mcL Hgb 12.0 L (12.9-16.9) g/dL Hct 36.5 L (37.5-50.1) % Plt Count 323 (140-400) K/mcL Neutrophils # 7.8 (1.6-8.9) K/mcL BMP 10/13/17 01:00 Sodium 130 L Potassium 4.7 Chloride 100 Carbon Dioxide 22 L BUN 79 H Creatinine 1.98 H Glucose 214 H Calcium 8.6 - ABG Interpretation ABG results: ABG ABG pH 7.34 pH Units (7.32-7.45) 10/11/17 04:00 ABG pCO2 41 mmHg (35-45) 10/11/17 04:00 ABG pO2 62 mmHg (85-104) L 10/11/17 04:00 ABG O2 Saturation 90 % (95-98) L 10/11/17 04:00 PT/INR, D-dimer PT 14.4 Seconds (9.4-12.1) H 10/12/17 08:46 - VTE Reasons for not Prescribing Prophylaxis: Not indicated-Anticoagulated or INR therapeutic Documentation of Mechanical Device: Intermittent pneumatic compression device Consult Discharge Plan - Plan Referrals: Cecil Valle MD [Primary Care Provider] - (Web request sent on 10/12/17)
[2017-10-13] MEDS: hydrOXYzine pamoate 25 MG CAPSULE PO SCH (22:19)
[2017-10-13] MEDS: Insulin DETEMIR 100 UNIT/ML X5UNITS SQ SCH (22:24)
[2017-10-14 04:48] LABS: Hematocrit 36.5 % (37.5-50.1); Hemoglobin 11.8 g/dL (12.9-16.9); Immature Granulocytes % 0.8 % (0-4); Lymphocytes # 1.3 K/mcL (0.6-4.6); Lymphocytes % 12.6 %; Mean Corpuscular HGB Conc 32.3 g/dL (31.6-35.5); Mean Corpuscular Volume 83.5 fL (83.0-100.0); Mean Platelet Volume 9.8 fL (9.4-12.4); Monocytes # 1.1 K/mcL (0.0-1.3); Monocytes % 10.9 %; Neutrophils # 7.8 K/mcL (1.6-8.9); Platelet Count 324 K/mcL (140-400); Red Blood Count 4.37 M/mcL (4.19-5.50); Red Cell Distribution Width 15.4 % (11.5-14.5); Segmented Neutrophils % 75.7 %
[2017-10-14 05:13] LABS: Albumin 3.8 g/dL (3.5-5.7); Calcium 8.6 mg/dL (8.6-10.3); Phosphorous 4.8 mg/dL (2.7-4.5); Potassium 4.7 mEq/L (3.5-5.1)
[2017-10-14] MEDS: *HR* Heparin 5,000 UNIT/ML VIAL SQ SCH ×2 (05:52→16:48)
[2017-10-14] MEDS: Furosemide 40 MG TABLET PO SCH ×2 (08:19→16:05)
[2017-10-14] MEDS: Metoprolol XL (24 HR) Succ 25 MG TAB.ER.24H PO SCH (08:19)
[2017-10-14] MEDS: Acyclovir 200 MG CAPSULE PO SCH ×2 (08:19→21:33)
[2017-10-14] MEDS: Insulin LISPRO 300 UNITS/3 ML VIAL SQ SCH ×4 (08:19→21:42)
[2017-10-14] MEDS: Multivit/Ca/Min/Fe/FA 1 TAB TABLET PO SCH (08:19)
[2017-10-14] MEDS: Famotidine 20 MG TABLET PO SCH (08:19)
[2017-10-14] MEDS: Cholecalciferol (D-3) 1,000 UNIT TABLET PO SCH (08:19)
[2017-10-14] MEDS: Aspirin 81 MG TAB.CHEW PO SCH (08:19)
[2017-10-14] MEDS: Gabapentin 400 MG CAPSULE PO SCH ×4 (08:20→21:33)
[2017-10-14] MEDS: Omega-3/Dha/Epa/Fish Oil [Fish Oil 1,000 Mg Softgel] PO SCH ×2 (08:20→21:35)
--- NOTE | 2017-10-14 08:45 | Nephrology Progress Note ---
Date of Encounter: 10/14/17 Time of Encounter: 08:00 - Assessment and Plan (1) MOISES (acute kidney injury) Current Visit: Yes Status: Acute CKD with mild nonoliguric MOISES plus hypervolemic hyponatremia. Essentially stable SCr, though I would expect to see a physiologic increase of the SCr slightly now that diuretics have been started. As his volume status contracts, this ratio of fluid status relative to his steady state of creatinine generation and filtration will lead to a higher ratio of SCr, which is physiologic change seen with diuretics. Will resume diuretics today. Continue to follow a renal protective strategy as able. Will hold off a few more days before resuming an PIOTR d/t the MOISES, but [facility] if his renal function would safely allow it, then an PIOTR could be beneficial from both a renal and cardiac perspective. After this hospitalization, I recommend outpt nephrology follow up. He first established with Dr. Leung, so I'd recommend he follow up with her in about 3-6 weeks. Will continue to follow with you while he's hospitalized. Thank you (2) CKD (chronic kidney disease) stage 3, GFR 30-59 ml/min Current Visit: Yes Status: Chronic Appears to be his baseline level of renal function. Previous work up initiated by my colleague during this admission. (3) Peripheral edema Current Visit: Yes Status: Acute See above (4) Hyponatremia Current Visit: Yes Status: Acute Most likely hypervolemic hyponatremia and slightly improved now that he's back on a loop diuretic. (5) Hypertension Current Visit: Yes Status: Chronic I reviewed his home med list. When able, will plan to resume an PIOTR when his renal function would allow. Qualifiers: Hypertension type: essential hypertension Qualified Code(s): I10 - Essential (primary) hypertension (6) Morbid obesity with BMI of 45.0-49.9, adult Current Visit: Yes Status: Chronic See prior notes. Subjective Principal diagnosis: CHF Interval history: Pt was s/e. He was sleeping soundly while wearing a CPAP in his 2A unit room. Objective - Vital Signs Vital signs: Vital Signs Temp Pulse Resp BP Pulse Ox 10/14/17 08:16 108 10/14/17 07:50 97.4 F L 19 102/63 94 10/14/17 04:45 97.4 F L 108 20 109/78 97 10/14/17 01:15 97.3 F L 113 23 104/65 95 10/13/17 20:35 21 96 10/13/17 19:53 97.6 F 112 24 119/78 96 10/13/17 16:21 97.8 F 109 17 104/66 93 10/13/17 11:35 97.6 F 110 12 104/71 96 Intake and Output 10/13/17 10/14/17 10/14/17 23:59 07:59 15:59 Intake Total 240 / 240 0 / 0 Output Total 350 / 350 0 / 0 Balance 240 / 240 -350 / -350 0 / 0 Intake: Oral 240 / 240 0 / 0 Output: Urine 0 / 0 Catheter 350 / 350 Other: Meal Dinner Percent of Meal Consumed 100% Weight 163.838 kg Blood Glucose* 208 232 Patient Weight 10/14/17 23:59 Weight 163.838 kg - General Appearance General appearance: Present: well-developed, well-nourished, obese Additional Comments: Wearing a mask for CPAP Additional Comments: Wearing CPAP Cardiology: Present: edema (1-2+ pretibial pitting edema) Integumentary: Present: warm and dry - Lab 10/14/17 04:07 10/14/17 04:07 Most recent lab results ABG pH 7.34 pH Units (7.32-7.45) 10/11/17 04:00 ABG pCO2 41 mmHg (35-45) 10/11/17 04:00 ABG pO2 62 mmHg (85-104) L 10/11/17 04:00 ABG HCO3 22 mEq/L (21-27) 10/11/17 04:00 ABG O2 Saturation 90 % (95-98) L 10/11/17 04:00 Calcium 8.6 mg/dL (8.6-10.3) 10/14/17 04:07 Phosphorus 4.8 mg/dL (2.7-4.5) H 10/14/17 04:07 Magnesium 3.2 mg/dL (1.6-2.6) H 10/14/17 04:07 Urine Creatinine 98 mg/dL 10/06/17 22:20 Urine Sodium 18.8 mEq/L 10/06/17 22:20 Urine Total Protein SEE NOTE mg/d (10-140) 10/06/17 22:20 - VTE Reasons for not Prescribing Prophylaxis: Not indicated-Anticoagulated or INR therapeutic Documentation of Mechanical Device: Intermittent pneumatic compression device Consult Discharge Plan - Plan Referrals: Cecil Valle MD [Primary Care Provider] - (Web request sent on 10/12/17)
--- NOTE | 2017-10-14 09:25 | Cardiology Progress Note ---
Date of Encounter: 10/14/17 Time of Encounter: 09:20 Assessment and Plan (1) Congestive heart failure Current Visit: Yes Status: Acute Acute systolic CHF. TTE revealed severely reduced EF at 20% with severe global dysfunction, moderately dilated LV, severe biatrial dilation, mild MR/TR. Last TTE 2011 demonstrated preserved LVEF, 50-55% BNP elevated to 288 on admit. C completed 10/12/17 showed normal coronaries. NICMP. There was no complication from his procedure. Right groin with pea sized knot. Denies pain. No ecchymosis. Ambulting without any problems. SOB and BLE edema multifactoral in the setting of CHF, severe FRED, CKD, and obesity. C/o increasing SOB and weight gain yesterday and IV lasix given, Started on oral lasix 40 mg BID. Nephrology consulted during stay due to worsening renal function. Scr mildy increased from yesterday. Appreciate recs for diuretics and aceI/Arb. Continue toprol XL. Start aceI when okay with nephrology. Cumulative I&O: -4541. -360 for 24 hours. weight up 5 kg from admission. Will likely need low dose maintenance lasix at discharge with close following of kidney function. Continue 40 mg BID at discharge if okay with nephrology. CHF education reviewed. Strict I&O's, daily weights, Na/fluid restriction diet. Possible d/c tomorrow. Cardiology will sign off. Out-pt f/u will be coordinated in 1-2 weeks. Qualifiers: Heart failure type: systolic Heart failure chronicity: acute on chronic Qualified Code(s): I50.23 - Acute on chronic systolic (congestive) heart failure (2) FRED (obstructive sleep apnea) Current Visit: Yes Status: Chronic Reports compliance with CPAP at home. (3) DVT prophylaxis Current Visit: No Status: Acute Start SQ heprin DVT prophylaxis now that he is off heparin gtt. Discussion w patient/family: The assessment and plan as outlined above was discussed with the patient and/or family members who expressed understanding and agreement. All questions were answered. Thank you for involving us in the care of your patient. Please call with any questions. Subjective Principal diagnosis: CHF Interval history: Reports improvement in breathing and decresed BLE edema from yesterday. Objective Vital Signs, Last 4 Hours Temp Pulse Resp BP Pulse Ox 10/14/17 08:16 108 10/14/17 07:50 97.4 F L 19 102/63 94 General: Conversant, No Apparent Distress HEENT: Atraumatic, Normocephaly, Mucus Membranes Moist Neck: No JVD, Normal carotid pulses Cardiac: Reg Rate and Rhythm, Normal S1 and S2, No Murmur Lungs: Normal Breath Sounds, No Wheeze, Rales, Rhonchi Neuro: Alert and responsive, No focal deficits noted Abdomen: Soft, Non-Tender Skin: No rashes noted on visualized skin Musculoskeletal: No Chest Wall Tenderness Extremities: No Clubbing, No Cyanosis, Normal Pulses, Other (2+ BLE edema pitting up to below knee, ) Results 10/14/17 04:07 10/14/17 04:07 Lab Results 10/14/17 10/14/17 10/14/17 04:07 04:07 04:07 WBC 10.3 Hgb 11.8 L Hct 36.5 L Plt Count 324 Sodium 131 L Potassium 4.7 Chloride 100 Carbon Dioxide 22 L BUN 76 H Creatinine 2.09 H Glucose 228 H Calcium 8.6 Magnesium B-Natriuretic Peptide 767 H 10/14/17 04:07 WBC Hgb Hct Plt Count Sodium Potassium Chloride Carbon Dioxide BUN Creatinine Glucose Calcium Magnesium 3.2 H B-Natriuretic Peptide - Imaging and Cardiology Echo: report reviewed Cardiac cath: report reviewed - EKG Interpretation EKG results cardiology: personally reviewed - VTE Reasons for not Prescribing Prophylaxis: Not indicated-Anticoagulated or INR therapeutic Documentation of Mechanical Device: Intermittent pneumatic compression device Consult Discharge Plan - Plan Referrals: Cecil Valle MD [Primary Care Provider] - (Web request sent on 10/12/17)
--- NOTE | 2017-10-14 14:38 | Internal Med Progress Note ---
Date of Encounter: 10/14/17 Time of Encounter: 08:45 - Assessment and plan (1) Congestive heart failure Current Visit: Yes Status: Acute Assessment and plan: Newly diagnosed systolic CHF- nonischemic cardiomyopathy. Echocardiogram shows severely reduced EF around 20%, moderate LV dilation, indeterminate diastolic function, severe right and left atrial dilation, moderate pulmonary hypertension. Continue PO Lasix, fluid restriction and urine output monitoring. Continue Toprol-XL, will increase to 50mg in am an 25mg in pm; persistent tachycardia. PIOTR inhibitor not started due to acute kidney injury. Continue aspirin and statin. Continue telemetry monitoring. Cardiology recommednations appreciated, now signed off. Outpatient f/up will be setup; Underwent left heart catheterization , showing normal coronaries. Qualifiers: Heart failure type: systolic Heart failure chronicity: acute Qualified Code(s): I50.21 - Acute systolic (congestive) heart failure (2) Acute on chronic renal failure Current Visit: Yes Status: Acute Assessment and plan: Previous values of serum creatinine have been widely fluctuating, the lowest being 1.38 from February 2017. Serum creatinine is currently somewhat worse, expected due to diuretics, 2.09 today; Nephrology is on board- continue PO Lasix; monitor urine output. Plan to start PIOTR inhibitor in the future, if renal function is stable. Qualifiers: Acute renal failure type: unspecified Chronic kidney disease stage: stage 3 (moderate) Qualified Code(s): N17.9 - Acute kidney failure, unspecified; N18.3 - Chronic kidney disease, stage 3 (moderate); N18.3 - Chronic kidney disease, stage 3 (moderate) (3) CKD (chronic kidney disease) stage 3, GFR 30-59 ml/min Current Visit: Yes Status: Chronic (4) Constipation by delayed colonic transit Current Visit: Yes Status: Chronic (5) Diabetes Current Visit: Yes Status: Chronic Assessment and plan: Blood sugars noted to be fairly controlled. Continue Accu-Chek blood glucose monitoring with basal bolus insulin regimen. Diabetic diet. Hemoglobin A1c noted to be 9.4%. Qualifiers: Diabetes mellitus type: type 2 Diabetes mellitus prison insulin use: with computer terminal operator use Diabetes mellitus complication status: with kidney complications Diabetes mellitus complication detail: with chronic kidney disease Chronic kidney disease stage: stage 3 (moderate) Qualified Code(s): E11.22 - Type 2 diabetes mellitus with diabetic chronic kidney disease; N18.3 - Chronic kidney disease, stage 3 (moderate); N18.3 - Chronic kidney disease, stage 3 (moderate); Z79.4 - jail (current) use of insulin; Z79.4 - jail (current) use of insulin; Z79.4 - computer terminal operator (current) use of insulin; Z79.4 - computer terminal operator (current) use of insulin (6) Morbid obesity with BMI of 45.0-49.9, adult Current Visit: Yes Status: Chronic (7) FRED (obstructive sleep apnea) Current Visit: Yes Status: Chronic (8) Hypertension Current Visit: Yes Status: Chronic Qualifiers: Hypertension type: essential hypertension Qualified Code(s): I10 - Essential (primary) hypertension - Time Spent With Patient Total time spent is greater than 50% in coordination of care (as documented) at patient's floor/unit and/or counseling patient: - Subjective Interval history: Reports some shortness of breath today; continues to have leg swelling; no chest pain, dizziness, syncope; - Constitutional Vitals: Temp Pulse Resp BP Pulse Ox 97.4 F L 109 19 100/73 97 10/14/17 11:07 10/14/17 11:07 10/14/17 11:07 10/14/17 11:07 10/14/17 11:07 General appearance: Present: A&O X 3, morbidly obese, answers questions appropriately - Respiratory Respiratory exam: Present: decreased breath sounds (at B/L bases), CTAB. Absent : accessory muscle use, rales, rhonchi, wheezes - Cardiovascular Cardiovascular exam: Present: RRR, +S1, +S2, tachycardia. Absent: diastolic murmur, gallop, rubs, systolic murmur - GI/Abdominal GI/Abdominal exam: Present: normal bowel sounds, soft (obese), no peritoneal signs. Absent: distended, tenderness - Extremities Exam Extremities exam: Present: full ROM, pedal edema, warm, radial pulses palpable and symmetrical. Absent: calf tenderness, cyanotic Internal Medicine: Result - Labs CBC & Chem 7: 10/14/17 04:07 10/14/17 04:07 Labs: Short CBC 10/14/17 Range/Units 04:07 WBC 10.3 (4.3-11.1) K/mcL Hgb 11.8 L (12.9-16.9) g/dL Hct 36.5 L (37.5-50.1) % Plt Count 324 (140-400) K/mcL Neutrophils # 7.8 (1.6-8.9) K/mcL BMP 10/14/17 04:07 Sodium 131 L Potassium 4.7 Chloride 100 Carbon Dioxide 22 L BUN 76 H Creatinine 2.09 H Glucose 228 H Calcium 8.6 Liver Function 10/14/17 Range/Units 04:07 Albumin 3.8 (3.5-5.7) g/dL - ABG Interpretation ABG results: ABG ABG pH 7.34 pH Units (7.32-7.45) 10/11/17 04:00 ABG pCO2 41 mmHg (35-45) 10/11/17 04:00 ABG pO2 62 mmHg (85-104) L 10/11/17 04:00 ABG O2 Saturation 90 % (95-98) L 10/11/17 04:00 PT/INR, D-dimer PT 14.4 Seconds (9.4-12.1) H 10/12/17 08:46 - VTE Reasons for not Prescribing Prophylaxis: Not indicated-Anticoagulated or INR therapeutic Documentation of Mechanical Device: Intermittent pneumatic compression device Consult Discharge Plan - Plan Referrals: Cecil Valle MD [Primary Care Provider] - (Web request sent on 10/12/17)
[2017-10-14] MEDS: *HR* OxyCODONE/APAP 10/325 TABLET PO PRN (16:05)
[2017-10-14] MEDS ORDERED: Metoprolol XL (24 HR) Succ 25 MG TAB.ER.24H PO SCH (21:00)
[2017-10-14] MEDS: hydrOXYzine pamoate 25 MG CAPSULE PO SCH (21:33)
[2017-10-14] MEDS: Insulin DETEMIR 100 UNIT/ML X5UNITS SQ SCH (21:34)
[2017-10-15] MEDS: *HR* Heparin 5,000 UNIT/ML VIAL SQ SCH (05:11)
[2017-10-15 05:29] LABS: Calcium 8.5 mg/dL (8.6-10.3)
[2017-10-15 07:36] VITALS: BP 114/89
[2017-10-15] MEDS: Insulin LISPRO 300 UNITS/3 ML VIAL SQ SCH (07:48)
[2017-10-15] MEDS: Famotidine 20 MG TABLET PO SCH (08:29)
[2017-10-15] MEDS: Multivit/Ca/Min/Fe/FA 1 TAB TABLET PO SCH (08:30)
[2017-10-15] MEDS: Cholecalciferol (D-3) 1,000 UNIT TABLET PO SCH (08:30)
[2017-10-15] MEDS: Furosemide 40 MG TABLET PO SCH (08:30)
[2017-10-15] MEDS: Gabapentin 400 MG CAPSULE PO SCH (08:30)
[2017-10-15] MEDS: Acyclovir 200 MG CAPSULE PO SCH (08:30)
[2017-10-15] MEDS: Aspirin 81 MG TAB.CHEW PO SCH (08:30)
[2017-10-15] MEDS: Omega-3/Dha/Epa/Fish Oil [Fish Oil 1,000 Mg Softgel] PO SCH (08:31)
--- NOTE | 2017-10-15 08:52 | Nephrology Progress Note ---
Date of Encounter: 10/15/17 Time of Encounter: 08:51 - Assessment and Plan (1) MOISES (acute kidney injury) Current Visit: Yes Status: Acute Ongoing edema with some scrotal edema, so would rec inc'g PO Lasix (e.g. Lasix 40mg po tid), low sodium diet and outpt Nephro follow up. Discussed with hospitalist. Stable SCr with mild nonoliguric MOISES plus hypervolemic hyponatremia, which is also stable. Follow a fluid restriction of no more than 2L per day if not <1.5L per day if possible. Continue diuretics. Discussed the pros/cons and SE profile of lasix in the setting of CKD. He'll need his labs monitored as an outpt to help titrate diuretics in the face of his now improving hypervolemia. I've asked him to avoid going back to salty, unhealthy meals after he discharges. Continue to follow a renal protective strategy as able. Will hold off a few more days before resuming an PIOTR d/t the MOISES, but terminal carman if his renal function would safely allow it, then an PIOTR could be beneficial from both a renal and cardiac perspective. After this hospitalization, I recommend outpt nephrology follow up. He first established with Dr. Leung, so I'd recommend he follow up with her in about 3-6 weeks. Will continue to follow with you while he 's hospitalized. Thank you (2) CKD (chronic kidney disease) stage 3, GFR 30-59 ml/min Current Visit: Yes Status: Chronic Appears to be his baseline level of renal function. Previous work up initiated by my colleague during this admission. (3) Peripheral edema Current Visit: Yes Status: Acute See above. This was an Acute on Chronic peripheral edema. (4) Hyponatremia Current Visit: Yes Status: Acute Most likely hypervolemic hyponatremia. Stable. Should avoid thiazide type diuretics and AED meds. (5) Hypertension Current Visit: Yes Status: Chronic I reviewed his home med list. When able, will plan to resume an PIOTR when his renal function would allow. Qualifiers: Hypertension type: essential hypertension Qualified Code(s): I10 - Essential (primary) hypertension (6) Morbid obesity with BMI of 45.0-49.9, adult Current Visit: Yes Status: Chronic See prior notes. Subjective Principal diagnosis: CHF Interval history: Pt was s/e. He reported feeling less shortness of breath and overall swelling was slightly improved, he said. He has been sleeping well when using his CPAP at night. He requested to discharge today if possible. Objective - Vital Signs Vital signs: Vital Signs Temp Pulse Resp BP Pulse Ox 10/15/17 07:34 97.4 F L 108 17 114/89 97 10/15/17 04:25 17 97 10/15/17 04:24 97.2 F L 106 21 106/71 97 10/15/17 00:05 21 96 10/14/17 23:40 97.4 F L 109 21 110/80 96 10/14/17 20:25 15 95 10/14/17 19:50 98.0 F 118 18 102/69 95 10/14/17 16:31 97.5 F L 110 17 146/70 97 10/14/17 11:07 97.4 F L 109 19 100/73 97 Intake and Output 10/14/17 10/15/17 10/15/17 23:59 07:59 15:59 Intake Total 480 / 480 120 / 120 Balance 480 / 480 120 / 120 Intake: Oral 480 / 480 120 / 120 Other: Meal Dinner Percent of Meal Consumed 100% Weight 166.468 kg Blood Glucose* 173 131 Patient Weight 10/15/17 23:59 Weight 166.468 kg - General Appearance General appearance: Present: well-developed, well-nourished, appears started age , obese EENT: Present: ATNC, PERRL, mucous membranes moist Neck: Present: supple Respiratory: Present: clear Cardiology: Present: edema (1+ pretibial pitting edema (appears chronic and difficult to distinquish from SQ adiposity), bilaterally), regular rate, regular rhythm, normal S1, normal S2 Gastrointestinal: Present: normoactive bowel sounds, no tenderness, no guarding , obese Integumentary: Present: no rash, warm and dry Neurologic: Present: no focal deficit, no asterixis, alert and oriented x3 Musculoskeletal: Present: no deformities, no erythema, no cyanosis Psychiatric: Present: mood/affect appropriate, cooperative - Lab 10/14/17 04:07 10/15/17 04:21 Most recent lab results ABG pH 7.34 pH Units (7.32-7.45) 10/11/17 04:00 ABG pCO2 41 mmHg (35-45) 10/11/17 04:00 ABG pO2 62 mmHg (85-104) L 10/11/17 04:00 ABG HCO3 22 mEq/L (21-27) 10/11/17 04:00 ABG O2 Saturation 90 % (95-98) L 10/11/17 04:00 Calcium 8.5 mg/dL (8.6-10.3) L 10/15/17 04:21 Phosphorus 4.8 mg/dL (2.7-4.5) H 10/14/17 04:07 Magnesium 3.2 mg/dL (1.6-2.6) H 10/14/17 04:07 Urine Creatinine 98 mg/dL 10/06/17 22:20 Urine Sodium 18.8 mEq/L 10/06/17 22:20 Urine Total Protein SEE NOTE mg/d (10-140) 10/06/17 22:20 - VTE Reasons for not Prescribing Prophylaxis: Not indicated-Anticoagulated or INR therapeutic Documentation of Mechanical Device: Intermittent pneumatic compression device Consult Discharge Plan - Plan Additional Instructions: F/up with in 4-6 weeks F/up with [facility] in 2-3 weeks F/up with PCP in 1-2 weeks Referrals: Cecil Valle MD [Primary Care Provider] - (Web request sent on 10/12/17) Dallas Rader CNP [Advanced Practice Nurse] - Roberto Najera MD [Partnered Physician] - (Office will call for an appt...) Prescriptions: Aspirin 81 mg PO DAILY #30 tab.chew Furosemide [Lasix] 40 mg PO Q8H #90 tablet Metoprolol XL (24 HR) Succ [Toprol Xl] 25 mg PO HS #30 tab.er.24h Metoprolol XL (24 HR) Succ [Toprol Xl] 50 mg PO DAILY #30 tab.er.24h
[2017-10-15] MEDS ORDERED: Metoprolol XL (24 HR) Succ 50 MG TAB.ER.24H PO SCH (09:00)
--- NOTE | 2017-10-15 09:28 | Discharge Summary ---
- NOTES TO OUTPATIENT PROVIDER Notes to Outpatient Provider: MOISES on CKD, f/up with Nephrology; newly diagnosed systolic CHF Date of Encounter: 10/15/17 Time of Encounter: 09:25 - Discharge Diagnosis (1) Congestive heart failure Priority: Primary Status: Acute Qualifiers: Heart failure type: systolic Heart failure chronicity: acute Qualified Code(s): I50.21 - Acute systolic (congestive) heart failure (2) Acute on chronic renal failure Priority: Primary Status: Acute Qualifiers: Acute renal failure type: unspecified Chronic kidney disease stage: stage 3 (moderate) Qualified Code(s): N17.9 - Acute kidney failure, unspecified; N18.3 - Chronic kidney disease, stage 3 (moderate); N18.3 - Chronic kidney disease, stage 3 (moderate) (3) CKD (chronic kidney disease) stage 3, GFR 30-59 ml/min Priority: Secondary Status: Chronic (4) Constipation by delayed colonic transit Priority: Secondary Status: Chronic (5) Diabetes Priority: Secondary Status: Chronic Qualifiers: Diabetes mellitus type: type 2 Diabetes mellitus nursing home insulin use: with moth exterminator use Diabetes mellitus complication status: with kidney complications Diabetes mellitus complication detail: with chronic kidney disease Chronic kidney disease stage: stage 3 (moderate) Qualified Code(s): E11.22 - Type 2 diabetes mellitus with diabetic chronic kidney disease; N18.3 - Chronic kidney disease, stage 3 (moderate); N18.3 - Chronic kidney disease, stage 3 (moderate); Z79.4 - middle or intermediate school principal (current) use of insulin; Z79.4 - group home (current) use of insulin; Z79.4 - group home (current) use of insulin; Z79.4 - group home (current) use of insulin (6) Morbid obesity with BMI of 45.0-49.9, adult Priority: Secondary Status: Chronic (7) FRED (obstructive sleep apnea) Priority: Secondary Status: Chronic (8) Hypertension Priority: Secondary Status: Chronic Qualifiers: Hypertension type: essential hypertension Qualified Code(s): I10 - Essential (primary) hypertension Hospital course: Mr. Brown is a 52 year old male who was initially admitted with shortness of breath. He was started on diuresis along with fluid restriction for suspected acute CHF. Echocardiogram showed severely reduced ejection fraction around 20% , moderate LV dilation, severe biatrial dilation, moderate pulmonary hypertension. Cardiology was consulted, patient was started on medical management with beta yordan and aspirin and statin, however diuretics and PIOTR inhibitor were held due to acute on chronic renal failure. Patient was noted to be allergic to aspirin, immunology was consulted and he underwent aspirin desensitization, currently cannot tolerate baby aspirin daily. Nephrology was consulted, followed the patient during his hospital stay. Renal workup including ultrasound was negative. Renal function currently stabilized but patient is noted to be in positive fluid balance with significant peripheral and abdominal wall edema and exertional dyspnea. He is being restarted on Lasix at this time and the dose is being increased to 40 mg 3 times a day. PIOTR inhibitor is still deferred. Patient subsequently underwent left heart catheterization, which showed normal coronaries. He is noted to be on nocturnal CPAP for obstructive sleep apnea, encouraged to continue this. He did not qualify for BiPAP. CHF discharge instructions were reviewed and patient verbalized understanding. He is encouraged to keep his outpatient follow-up appointments with PCP, cardiology and nephrology. Discharge discussed with: patient - Time Spent with Patient Total time spent providing and/or coordinating discharge services: Greater than 30 minutes (45 min) - Discharge Medications Prescriptions: Aspirin 81 mg PO DAILY #30 tab.chew Furosemide [Lasix] 40 mg PO Q8H #90 tablet Metoprolol XL (24 HR) Succ [Toprol Xl] 25 mg PO HS #30 tab.er.24h Metoprolol XL (24 HR) Succ [Toprol Xl] 50 mg PO DAILY #30 tab.er.24h Home Medications: Albuterol Sulfate [Ventolin Hfa] 2 puff IH Q6H PRN 12/21/15 [History] Allopurinol [Zyloprim 300 MG] 300 mg PO DAILY 12/21/15 [History] Atorvastatin [Lipitor] 20 mg PO HS 12/21/15 [History] Docusate [Colace] 100 mg PO DAILY 12/21/15 [History] Escitalopram [Lexapro] 20 mg PO HS 12/21/15 [History] Gabapentin [Neurontin] 800 mg PO QID 12/21/15 [History] Gemfibrozil [Lopid] 600 mg PO BIDWM 12/21/15 [History] Insulin Glargine,Hum.rec.anlog [Lantus Solostar] 35 unit SQ HS 12/21/15 [History ] Liraglutide [Victoza 3-Christiano] 1.8 mg SQ DAILY 12/21/15 [History] OxyCODONE/APAP 10/325 [Percocet 10/325 MG] 1 each PO Q4HR PRN 12/21/15 [History] Terazosin [Hytrin] 5 mg PO HS 12/21/15 [History] hydrOXYzine HCl [Hydroxyzine HCl] 100 mg PO HS 12/21/15 [History] Albuterol Neb [Proventil Neb] 2.5 mg IH TID 02/20/17 [History] Cholecalciferol (Vitamin D3) [Vitamin D3] 10,000 unit PO 2XW 02/20/17 [History] Linaclotide [Linzess] 290 mcg PO DAILY 02/20/17 [History] Methocarbamol [Robaxin-750] 750 mg PO Q8H PRN 02/20/17 [History] Multivitamin with Iron [Multivitamins with Iron] 1 each PO DAILY 02/20/17 [ History] [place]-3/Dha/Epa/Fish Oil [Fish Oil 1,000 mg Softgel] 2,000 mg PO BID 02/20/17 [ History] Ranitidine HCl [Zantac] 300 mg PO DAILY 02/20/17 [History] Testosterone Cypionate [Depo-Testosterone] 200 mg IM Q2W 02/20/17 [History] Acyclovir [Zovirax] 200 mg PO BID 10/05/17 [History] Aspirin 81 mg PO DAILY #30 tab.chew 10/15/17 [Rx] Furosemide [Lasix] 40 mg PO Q8H #90 tablet 10/15/17 [Rx] Metoprolol XL (24 HR) Succ [Toprol Xl] 25 mg PO HS #30 tab.er.24h 10/15/17 [Rx] Metoprolol XL (24 HR) Succ [Toprol Xl] 50 mg PO DAILY #30 tab.er.24h 10/15/17 [ Rx] Allergies/Adverse Reactions: 3 Allergy/AdvReac Type Severity Reaction Status Date / Time Penicillins Allergy Swelling Verified 10/05/17 09:23 of Lip/Tongue/Throat Sulfa (Sulfonamide Allergy Swelling Verified 10/05/17 09:23 Antibiotics) of Lip/Tongue/Throat Date of admission: 10/04/17 23:54 Primary care physician: Cecil Vlale MD Consults: 10/04/17 22:27 Consult to Physician [CONS] Routine Consulting Provider: Neo [facility] Reason for Consult: acute CHF (?RHF); tachycardia; LBBB Call Completed: No 10/05/17 15:33 Consult to Cardiology [CONS] Routine Comment: Consulting Provider: [facility] Reason for Consult: Heart failure with ejection fraction = 20% Call Completed: No 10/05/17 15:36 Consult to Allergy/Immunology [CONS] Routine Consulting Provider: [facility] Reason for Consult: Anaphylactic reaction to aspirin Call Completed: No 10/06/17 11:25 Consult to Nephrology [CONS] Routine Consulting Provider: [facility]/EMY/MAYRA/NICA Reason for Consult: Renal failure - needs cath. Systolic CHF. Time Notified: 11:25 Call Completed: Yes Discharging clinician: Ally Parish Anticipated date of discharge: 10/15/17 - Constitutional Vitals: Temp Pulse Resp BP Pulse Ox 97.4 F L 108 17 114/89 97 10/15/17 07:34 10/15/17 07:34 10/15/17 07:34 10/15/17 07:34 10/15/17 07:34 General appearance: Present: A&O X 3, morbidly obese, answers questions appropriately - Cardiovascular Cardiovascular exam: Present: RRR, +S1, +S2. Absent: diastolic murmur, gallop, rubs, systolic murmur - Patient Status Disposition: Home, Self-Care Condition: Fair Functional capacity at discharge: independent ambulation Overall status at discharge: patient is progressing back to baseline - Ambulatory Orders Ambulatory Orders: Basic Metabolic Panel [CHEM] Time Frame: 1 Week, Facility: [facility], Location: Lab - Discharge Instructions Instructions: Metoprolol (By mouth), Furosemide (By mouth), Aspirin (By mouth) , Heart Failure (DC) Follow Up With: Cecil Valle MD [Primary Care Provider] - (Web request sent on 10/12/17) Dallas Rader CNP [Advanced Practice Nurse] - (Office will call for an appt... ) Roberto Najera MD [Partnered Physician] - (Office will call for an appt...) Additional Instructions: F/up with in 4-6 weeks F/up with [facility] in 2-3 weeks F/up with PCP in 1-2 weeks - Diet and Activity Activity: resume usual activities as tolerated Diet: diabetic diet, low fat, low cholesterol, low salt diet, other (fluid restriction to 1.2L/day) - VTE Reasons for not Prescribing Prophylaxis: Not indicated-Anticoagulated or INR therapeutic Documentation of Mechanical Device: Intermittent pneumatic compression device
--- NOTE | 2017-10-25 15:58 | Invasive Diagnostic Lab Proc ---
Name: Chava Brown Date of Study: 10/12/2017 Date: 1965 Ht: 70.1in Medical Record#: [id number] Age: 52 Wt: 352.74lb Gender: Male BSA: 2.66 Order #: [id number] BMI: 50.5 Physicians Procedure Physician: Demarco Seo MD Referring MD: Referring MD: Staff Name Position Time In Sandra Damico RN Merchandise Shopper 01:13 PM Richie Handley RT (R) Monitor 01:13 PM Marley Vigil RT (R) Scrub 01:13 PM Nancy Eckert RT Monitor 02:54 PM Ruthie Handley RT (R) Scrub 02:54 PM Charli Peterson RN Merchandise Shopper 02:55 PM Kaushik Bond RN Merchandise Shopper 02:55 PM Indications Indication Cardiomyopathy Procedures Performed Procedure L HRT ARTERY/VENTRICLE ANGIO Pre-Procedure Checklist Informed consent is complete signed and on chart. H&P is on chart. ID band is on and ID verified with patient. Patient NPO for procedure The procedure was described for the patient and questions were answered. ECG is on chart. Plan of Care Patient will tolerate the procedure without complications. Adequate level of comfort will be maintained. Hemodynamics will remain stable Patient will recover from procedure without complications. Respiratory function will be maintained. Cardiac rhythm will remain stable. Patient temperature will be maintained. Patient and/or family have verbalized understanding of the procedure. Patient Education Chief Complaint/Reason for Test: Cardiac Cath Developmental Category: Adult (18-64 years) Developmentally Appropriate for Age: Yes Learning Barriers: None Education Needs: Procedure Education Method: Verbal Information Taught: Cardiac Cath Educational Evaluation: Able to repeat information Intravenous Access Time IV Size Location DC'd Fluid/Drip Rate Units RN 18g 1 /" Patent On Arrival Rt Arm 0.9NaCl ml/hr Allergies Acetaminophen/Oxycodone Hydr ASA,NSA PCN,SULFA Oxycodone Penicillins Sulfa (Sulfonamide Antibiotics) Vital Signs Time BP (mmHg) HR (bpm) O2 Sat. RR (bpm) LOC 02:56 PM / % 5 = Fully awake and oriented or at pre-proc level 02:56 PM / % 5 = Fully awake and oriented or at pre-proc level 02:57 PM 121 / 94 111 96 % 03:03 PM 117 / 87 107 97 % 03:07 PM 113 / 90 112 96 % 03:12 PM 115 / 88 112 97 % 03:17 PM 111 / 73 107 95 % 03:22 PM 118 / 83 109 96 % Procedural Medications Time Medication Dose Units Method Given By 02:55 PM Oxygen 21 % BiPAP 03:10 PM Lidocaine 2% 18 ml Subcutaneous Demarco Seo MD ASA Classification: CLASS II- Mild systemic disease (i.e. well-controlled diabetes, hypertension, asthma, cigarette smoking) Sb Score Preprocedure Postprocedure Activity 2- Moves 4 extremities sustained head lift Activity 2- Moves 4 extremities sustained head lift Circulation 2- SBP +/= 20 points of pre-anesthetic level Circulation 2- SBP +/= 20 points of pre-anesthetic level Consciousness 2- Awake and alert oriented x 3 Consciousness 2- Awake and alert oriented x 3 O2 Saturation 2- Able to maintain O2 satruation of 92% on room air O2 Saturation 2- Able to maintain O2 satruation of 92% on room air Respiratory 2- Able to deep breathe and cough well Respiratory 2- Able to deep breathe and cough well Total Score 10 Total Score 10 Contrast Agent: Isovue Diagnostic Contrast: 40 ml Total Contrast: 40 ml Fluoro Dose: 490 mGy Procedure Log Time Note Enter By 01:13 PM Sandra Damico RN Position: Merchandise Shopper Time in: 13:13 [email or web address] 01:13 PM Richie Handley RT (R) Position: Monitor Time in: 13:13 [email or web address] 01:13 PM Marley Vigil RT (R) Position: Scrub Time in: 13:13 [email or web address] 01:13 PM Patient charges- Angio tray pack, Navilyst 3mm J, Pulse Oximetry and ACIST tubing and transducer [email or web address] 02:54 PM Pt arrived to kiln labourer 2 at 14:54 [email or web address] 02:54 PM Nancy Eckert RT Position: Monitor Time in: 14:54 [email or web address] 02:55 PM Ruthie Handley RT (R) Position: Scrub Time in: 14:54 [email or web address] 02:55 PM Charli Peterson RN Position: Merchandise Shopper Time in: 14:55 [email or web address] 02:55 PM Kaushik Bond RN Position: Merchandise Shopper Time in: 14:55 [email or web address] 02:55 PM Patient charges- Angio tray pack, Navilyst 3mm J, Pulse Oximetry and ACIST tubing and transducer [facility] :55 PM Case Delayed No [facility] :55 PM Hair removed from procedure site in procedure lab using clippers. Bilateral groin prepped with Chloraprep by Ruthie Handley (R), then patient was draped. Skin intact. [facility] :55 PM Physician arrived 14:55 [facility] :55 PM ASA Class CLASS II- Mild systemic disease (i.e. well-controlled diabetes, hypertension, asthma, cigarette smoking) [facility] :55 PM Meet and greet completed [facility] :55 PM Sign in performed according to hospital policy. [facility] :55 PM Procedure start 14:55 [facility] 56 PM Time: 14:55 Oxygen on at 21 % per BiPAP by Respiratory ther [facility] :56 PM CathStat 02:56 PM Vitals capture started with the following parameters, Patient=Adult, Interval=5 min, Initial Fmsoxmkj=684 mmHg, Deflation Rate=5 mmHg, Cuff placed on Right Arm 02:56 PM Time: 14:56 Patient comfortable and pain free: Yes [facility] :56 PM Time: 14:56LOC: 5 = Fully awake and oriented or at pre-proc level [facility] 02:56 PM Clinical Presentation: Unstable angina [facility] 02:57 PM WA=649 bpm, DALB=865/94 mmhg, SpO2=96.0 % 03:03 PM IH=831 bpm, YXAB=752/87 mmhg, SpO2=97.0 % 03:07 PM Pressure channel 1 zero failed. 03:07 PM Pressure channel 1 zero failed. 03:07 PM II=402 bpm, TLNT=404/90 mmhg, SpO2=96.0 % 03:07 PM Pressure channel 1 zeroed. 03:09 PM Time out performed according to hospital policy [facility] 03:11 PM Time: 15:10 18 ml Lidocaine 2% to right groin Subcutaneous [facility] Micro-Introducer Kit utilized for sheath placement [facility] 03:11 PM Bolus angiogram of right Femoral complete: hand injected [facility] 03:11 PM Time: 14:56LOC: 5 = Fully awake and oriented or at pre-proc level [facility] Time: 14:56 Patient comfortable and pain free: Yes [email or web address] 03:12 PM BP=138 bpm, MQTD=156/88 mmhg, SpO2=97.0 % 03:12 PM Access obtained by percutaneous puncture. 6Fr 10cm Terumo [place] sheath placed in right Femoral artery. [id number] lparsley 03:13 PM 5Fr FR 4 catheter inserted over the wire DNC lparsley 03:13 PM wire removed lparsley 03:13 PM RCA angiography performed in multiple views. [email or web address] 03:13 PM Recorded Pressure: Ao, GO=906, Condition=Condition 1 (Aorta) Ao 92/83/87 03:14 PM Catheter removed lparsley 03:14 PM 5Fr FL 4 catheter inserted over the wire DN lparsley 03:14 PM wire removed lparsley 03:14 PM LCA angiography performed in multiple views. [email or web address] 03:15 PM Recorded Pressure: Ao, RZ=479, Condition=Condition 1 (Aorta) Ao 87/78/82 03:16 PM Catheter removed lparsley 03:16 PM 5Fr Pigtail catheter inserted over the wire DN lparsley 03:16 PM wire removed lparsley 03:16 PM Catheter selectively placed in left ventricle lparsley 03:17 PM ZP=537 bpm, GYCY=956/73 mmhg, SpO2=95.0 % 03:18 PM Recorded Pressure: LV, IW=740, Condition=Condition 1 (Left Ventricle) LV 99/23/41 03:18 PM Recorded Pressure: LV, Ao, ZS=625, Condition=Condition 1 (Left Ventricle) LV 100/20/34, (Aorta) Ao 110/66/90 03:19 PM wire and catheter lparsley 03:19 PM Coronary Dominance: Left [email or web address] 03:19 PM Left Main Coronary Artery with 0% stenosis [email or web address] 03:19 PM Proximal Left Anterior Descending Coronary Artery with 0% stenosis. If graft is supplying this territory, 0 % stenosis. [email or web address] 03:19 PM Mid/Distal Left Anterior Descending Coronary Artery and diagonal branches with 0% stenosis. If graft is supplying this area, 0 % stenosis lparsley 03:19 PM Circumflex, Obtuse Marginal, Left Posterior Descending, and Left Posterolateral Coronary Arteries with 0 % stenosis. If graft is supplying this area, 0 % stenosis lparsley 03:19 PM Right Coronary, Right Posterior Descending Arteries with Right Posterolateral and Acute Marginal branches with 0 % stenosis. If graft is supplying this area, 0 % stenosis lparsley 03:19 PM Ramus with 0% stenosis. If graft is supplying this area, 0 % stenosis lparsley 03:20 PM Procedure completed at 15:20 [email or web address] 03:20 PM Did you address ISABELLA flow and Dominance? Yes [email or web address] 03:21 PM Sign out completed: Radiation Dose 490.27 mGy Fluoro Time: 2.3 Isovue 370 - 200ml contrast 40 ml given by Demarco Seo MD. Complications: NoneCardiac Rehab Consult needed: NoConfirmed administered medications: Yes lparsley 03:21 PM Isovue 370 - 200ml,1 Bottle(s) used. [email or web address] 03:22 PM Arterial sheath pulled, Mynx closure device used and was Successful [id number] S/N. lparsley 03:22 PM WO=801 bpm, TEED=116/83 mmhg, SpO2=96.0 % 03:22 PM Estimated Blood Loss: minimal [email or web address] 03:23 PM Post ECG Sinus Tachycardia lparsley 03:23 PM Post Blood Pressure 118/83 lparsley 03:23 PM 15:23 Post Pulses Bilateral DP & PT 1+ [email or web address] 03:23 PM What is the NYHA Class? Class 4 [email or web address] 03:25 PM Information taught Cardiac Cath and Mynx lparsley 03:25 PM Education needs Procedure, Plan of Care, and Responsibilities of Patient in Care [email or web address] 03:25 PM Learning barriers :None [email or web address] 03:26 PM Education Methods Verbal [email or web address] 03:26 PM Education evaluation Able to repeat information [email or web address] 03:26 PM Site status No bleeding/hematoma - Rt Groin as reported by Ruthie Handley RT (R) at 15:26 [email or web address] 03:26 PM Opsite applied lparsley 03:26 PM Plavix, Effient or Brilinta given No [email or web address] 03:26 PM Delay to floor No [email or web address] 03:26 PM Patient out of room: 15:26 [email or web address] 03:26 PM Complications: None lparsley 03:26 PM Fluoro Time: 2.3 [email or web address] 03:27 PM Isovue 370 - 200ml contrast 40 ml given by Demarco Seo. [email or web address] 03:27 PM Radiation Dose 490.27 mGy [email or web address] 03:27 PM Vitals capture stopped. 03:33 PM Report given to Racquel RAUSCH Pt taken to 2A Room #14. 15:33 [email or web address] Equipment Used Size Length Diameter Item Category Angio tray pack Other Micro-Introducer Kit Other Terumo [place] sheath Mynx Sealant Complications Complication None None Hemodynamics Pressures Site Systolic/A Wave Diastolic/V Wave Mean AO 92 83 87 AO 87 78 82 LV 99 23 41 LV 100 20 34 AO 110 66 90 Post Procedure Information Blood Pressure: 118/83 mmHg Rhythm: Sinus Tachycardia Post procedural instructions were given Closure Device Time Device Success/Fail MynxGrip Successful Site Checks Time Location Status Staff Sheath In? Note 03:26 PM Rt Groin No bleeding/hematoma Ruthie Handley RT (R) Pulses Time Site Pre-Procedure Post-Procedure Note 10/12/2017 1:00:00 PM Bilateral DP & PT 1+ 10/12/2017 1:00:00 PM Rt Radial 2+ 3:23:00 PM Bilateral DP & PT 1+ Updated by Cami Moore RN on 10/25/2017 3:48:25 PM electronically signed on 10/25/2017 3:48:49 PM with status of Final
== END 2017-10-15 10:25 | disposition home or self-care (01) | DRG 192 ==
LOC: 2NENU → SUATTDRO 23:54 → ICNU 10-08 19:49 → 2ANU 10-11 16:54
PROVIDERS: ADMIT Pediatrics; ATTEND Internal Medicine

== ENCOUNTER 2017-10-18 15:23 | Inpatient (IN) ==
--- NOTE | 2017-10-18 20:32 | Internal Med History&Physical ---
<Melchor Patrick - Last Filed: 10/18/17 21:13> Date of Encounter: 10/18/17 Time of Encounter: 20:25 Internal Medicine - H&P: HPI Chief complaint: Just don't feel right Admitted From: Emergency Dept Plans for Post Hospital Care: Home History of present illness: Mr. Brown is a 52 year old male with medical history significant for COPD, diabetes, GERD, hyperlipidemia, hypertension and recent admission to the hospital for shortness of breath at which time he had a left heart catheterization without any PCI. The patient was seen at [place] [facility] and was transferred to [facility] for further care and admission. He says that since Sunday of last week he has continued to feel poor, especially since Sunday he is feeling worse. He says these significantly short of breath, and just "does not feel right". He says that as of today, his shortness of breath has gotten substantially worse, and he finds that he is coughing more. He does not seem to have any productive cough, however it is bothersome. This is not associated with any sort of chest pain. He does admit to marked orthopnea, and must maintain a seated position to breath comfortably. In addition of this, the patient is complaining of significant swelling in his genital region. He says that this primarily started on Sunday, and has gotten significantly worse. The pain is not intense, however he does describe it is severely uncomfortable. He says in addition of this, he has noticed that his penis has seemed to retract inside of his body. This has never happened him before. He does not note any significant redness or warmth in that region. He also has had no fevers, chills, night sweats, nausea or vomiting. He denies urinary symptoms associated with this including urinary frequency or dysuria. He has no other acute complaints. While in the ED at [facility], the patient did present with hypotension with pressure 83/59. The patient was also found to have a leukocytosis with a WBC of 13.6, he was found have a lactic acid 0.9. His troponin was negative, however he did have a BNP of 488, and he did have an MOISES with a creatinine of 2.24. CXR showed increased opacification in the right lung base suspicious for pneumonia. He was given Aztreonam, levquin and vancomycin, and was given 500mL bolus of NS prior to transfer. Past Med Surg Social Fam HX - Past Medical History Medical history: arthritis, CHF, COPD, diabetes, GERD, hyperlipidemia, hypertension Psychiatric history: depression - Past Surgical History Surgical History: appendectomy - Social History Smoking Status: Never smoker Smokeless Tobacco Status: Yes Alcohol use: rarely Drug use: none - Family History Mother History Unknown: Yes Hx Family Endocrine Disorder: Yes Father History Unknown: Yes Hx Family Cardiac Disorders: Yes Internal Medicine - H&P: Meds Albuterol Sulfate [Ventolin Hfa] 2 puff IH Q6H PRN 12/21/15 [History] Allopurinol [Zyloprim 300 MG] 300 mg PO DAILY 12/21/15 [History] Atorvastatin [Lipitor] 20 mg PO HS 12/21/15 [History] Docusate [Colace] 100 mg PO DAILY 12/21/15 [History] Escitalopram [Lexapro] 20 mg PO HS 12/21/15 [History] Gabapentin [Neurontin] 800 mg PO QID 12/21/15 [History] Gemfibrozil [Lopid] 600 mg PO BIDWM 12/21/15 [History] Insulin Glargine,Hum.rec.anlog [Lantus Solostar] 35 unit SQ HS 12/21/15 [History ] Liraglutide [Victoza 3-Christiano] 1.8 mg SQ DAILY 12/21/15 [History] OxyCODONE/APAP 10/325 [Percocet 10/325 MG] 1 tab PO Q4HR PRN 12/21/15 [History] Terazosin [Hytrin] 5 mg PO HS 12/21/15 [History] hydrOXYzine HCl [Hydroxyzine HCl] 100 mg PO HS 12/21/15 [History] Albuterol Neb [Proventil Neb] 2.5 mg IH TID 02/20/17 [History] Cholecalciferol (Vitamin D3) [Vitamin D3] 10,000 unit PO 2XW 02/20/17 [History] Linaclotide [Linzess] 290 mcg PO DAILY 02/20/17 [History] Methocarbamol [Robaxin-750] 750 mg PO Q8H PRN 02/20/17 [History] Multivitamin with Iron [Multivitamins with Iron] 1 tab PO DAILY 02/20/17 [ History] Coolspring-3/Dha/Epa/Fish Oil [Fish Oil 1,000 mg Softgel] 2,000 mg PO BID 02/20/17 [ History] Ranitidine HCl [Zantac] 300 mg PO DAILY 02/20/17 [History] Testosterone Cypionate [Depo-Testosterone] 200 mg IM Q2W 02/20/17 [History] Acyclovir [Zovirax] 200 mg PO BID 10/05/17 [History] Aspirin 81 mg PO DAILY #30 tab.chew 10/15/17 [Rx] Furosemide [Lasix] 40 mg PO Q8H #90 tablet 10/15/17 [Rx] Metoprolol XL (24 HR) Succ [Toprol Xl] 25 mg PO HS #30 tab.er.24h 10/15/17 [Rx] Metoprolol XL (24 HR) Succ [Toprol Xl] 50 mg PO DAILY #30 tab.er.24h 10/15/17 [ Rx] Amlodipine Besylate 10 mg PO DAILY 10/18/17 [History] Lisinopril [Zestril] 5 mg PO DAILY 10/18/17 [History] Metformin HCl [Glucophage] 1,000 mg PO BID 10/18/17 [History] Polyvinyl Alcohol [Artificial Tears] 1 drop OP QID PRN 10/18/17 [History] glipiZIDE [Glipizide ER] 10 mg PO DAILY 10/18/17 [History] 3 Allergy/AdvReac Type Severity Reaction Status Date / Time Penicillins Allergy Swelling Verified 10/18/17 19:19 of Lip/Tongue/Throat Sulfa (Sulfonamide Allergy Swelling Verified 10/18/17 19:19 Antibiotics) of Lip/Tongue/Throat All Systems PM: A 10-system review of systems was performed and is negative for pertinent findings except as documented above in the HPI. Review of systems: Constitutional: Denies fevers, chills, weight loss. Admits to significant fatigue Head/Neck: Denies ABBOTT, neck stiffness EENT: Denies vision changes/blurriness, rhinorrhea, congestion, sore throat CVS: Denies chest pain, palpitations. Admits to MCKENNA and edema, however says that his edema seems improved compared to previously Pulm: Admits to SOB, cough. Denies sputum production, hemoptysis, wheezing GI: Denies abdominal pain, nausea, vomiting, diarrhea, constipation, melena, hematemasis : Denies dysuria, increased frequency, urgency, hematuria. Admits to penile and scrotal edema Heme: Denies ease of bleeding or bruising MSK: Denies joint pain, limited ROM Skin: Denies rashes, color changes. He does admit to small ulcer on his right great toe Neuro: Denies ABBOTT, paresthesias, focal deficits, ataxia - Constitutional Vitals: Temp Pulse Resp BP Pulse Ox 97.5 F L 92 20 86/52 94 10/18/17 17:51 10/18/17 19:38 10/18/17 18:33 10/18/17 18:33 10/18/17 18:33 Exam: Gen: Vitals noted. Mildly distressed with some accessory musculature in use HEENT: PERRL/EOMI, oropharynx clear, Normocephalic, atraumatic Neck: Supple. No adenopathy. Cardiac: RRR, no murmur, +S1/S2 Pulmonary: Biminished b/l in the bases with no obvious wheezes, rales or rhonchi Abdomen: soft, nontender, BS noted, no guarding Back: Nontender throughout. MSK: ROM intact, no joint swelling noted Extremities: There is 1-2+ b/l LE edema, dry skin with a blackened necrotic superficial ulceration at the tip of his right great toe Neuro: A&Ox3, moves all extremities, no focal deficits Psych: Appropriate mood and behavior : There is marked edema in the scrotum and penis which overlies the glans such that it cannot be exposed. I am unable to palpate discreet testes within the scrotum. The patient states that the exam is tender, but tolerable. There is no erythema, open lesions, discharge. - Assessment and plan (1) Hypotension Current Visit: Yes Status: Acute Assessment and plan: Hypotension likely secondary to cardiomyopathy Patient has known nonischemic cardiomyopathy with EF of 20% and moderate hypertension I suspect that this hypotension is likely secondary to worsening heart failure combined with acute pneumonia I will start the patient on dobutamine for increased cardiac contractility We will monitor for MAP >60 Consider insertion of central line if needed Qualifiers: Hypotension type: other hypotension type Qualified Code(s): I95.89 - Other hypotension (2) Pneumonia Current Visit: Yes Status: Acute Assessment and plan: Suspected right-sided pneumonia seen on chest x-ray Symptoms are consistent with pneumonia, shortness of breath and significant exhaustion The patient did present with a white blood cell count 13.6 We will start the patient on cefepime at this time and monitor for improvement I do not suspect sepsis at this time, however we will continue to monitor Qualifiers: Pneumonia type: due to unspecified organism Laterality: right Qualified Code(s): J18.9 - Pneumonia, unspecified organism (3) Edema of penis Current Visit: Yes Status: Acute Assessment and plan: Likely secondary to severe cardiomypathy with CHF We will diurese as able (4) Edema of scrotum Current Visit: Yes Status: Acute Assessment and plan: As above US of scrotum in the morning Consider Urology consult (5) Congestive heart failure Current Visit: Yes Status: Acute Assessment and plan: Acute on chronic heart failure Echo 10/05/17 shows LVEF 20% with severe LV systolic dysfunction and moderate pulmonary hypertension Currently on BB, Serafin, ASA, Statin We will hold BB and Serafin due to Hypotension and MOISES for now, start as tolerated We will give 40mg IV Lasix q8h to reduce fluid overload Strict I/Os, fluid restriction to 1500mL Qualifiers: Heart failure type: systolic Heart failure chronicity: acute on chronic Qualified Code(s): I50.23 - Acute on chronic systolic (congestive) heart failure (6) Acute on chronic renal failure Current Visit: Yes Status: Acute Assessment and plan: Acute on chronic kidney failure Patient presents with Cr 2.24, baseline ~1.8-2 Likely secondary to poor perfusion due to cardiomyopathy We will give Dobutamine peripherally and watch for kidney function Insert matias catheter and monitor strict I/Os Qualifiers: Acute renal failure type: unspecified Chronic kidney disease stage: stage 3 (moderate) Qualified Code(s): N17.9 - Acute kidney failure, unspecified; N18.3 - Chronic kidney disease, stage 3 (moderate); N18.3 - Chronic kidney disease, stage 3 (moderate) (7) Hyperkalemia, diminished renal excretion Current Visit: Yes Status: Acute Assessment and plan: Hyperkalemia secondary to decreased renal excretion K+ 5.6 on presentation without obvious EKG changes on monitor We will monitor as we attempt to increase renal excretion (8) Diabetes Current Visit: No Status: Chronic Assessment and plan: Seemingly poorly controlled diabetes mellitus We will hold oral glycemic meds ACHS protocol with SSI Qualifiers: Diabetes mellitus type: type 2 Diabetes mellitus snf insulin use: with certification officer use Diabetes mellitus complication status: with kidney complications Diabetes mellitus complication detail: with chronic kidney disease Chronic kidney disease stage: stage 3 (moderate) Qualified Code(s): E11.22 - Type 2 diabetes mellitus with diabetic chronic kidney disease; N18.3 - Chronic kidney disease, stage 3 (moderate); N18.3 - Chronic kidney disease, stage 3 (moderate); Z79.4 - chalk tester (current) use of insulin; Z79.4 - chalk tester (current) use of insulin; Z79.4 - [facility] (current) use of insulin; Z79.4 - chalk tester (current) use of insulin (9) FRED (obstructive sleep apnea) Current Visit: No Status: Chronic Assessment and plan: Continue overnight BiPAP (10) Morbid obesity with BMI of 45.0-49.9, adult Current Visit: No Status: Chronic (11) DVT prophylaxis Current Visit: Yes Status: Acute Assessment and plan: SQ Heparin - Time Spent With Patient Total time spent is greater than 50% in coordination of care (as documented) at patient's floor/unit and/or counseling patient: <Herminia Melchor - Last Filed: 10/18/17 23:36> Date of Encounter: 10/18/17 Internal Medicine - H&P: HPI History of present illness: Mr. Brown is a 52 year old male All Systems PM: A 10-system review of systems was performed and is negative for pertinent findings except as documented above in the HPI. - Constitutional Vitals: Temp Pulse Resp BP Pulse Ox 97.5 F L 97 16 85/66 96 10/18/17 20:31 10/18/17 20:31 10/18/17 20:31 10/18/17 20:31 10/18/17 20:31 Internal Med - H&P Results - Impressions ITS Impressions Chest CT 10/18/17 21:12 IMPRESSION: 1. New large right pleural effusion and small left pleural effusion with associated compressive atelectasis. 2. Small airspace opacities in the left lung base may reflect atelectasis, pneumonia or aspiration. 3. Mildly increased prominence of the heart since the comparison study is nonspecific. No significant pericardial effusion. 4. New perisplenic ascites. Findings were discussed with Dr. Bose At 10:37 pm on 10/18/2017. D/ / 10/18/2017 22:40:57 Lizette Good MD / [email or web address] Interpreting Provider: Lizette Good MD - Attending Attestation I examined this patient and my medical decision-making was reviewed with the Resident Physician. I agree with the documented findings, disposition and treatment plan as described except to the extent set forth below. - Time Spent With Patient Total time spent is greater than 50% in coordination of care (as documented) at patient's floor/unit and/or counseling patient:
[2017-10-18 20:36] VITALS: BP 85/66
[2017-10-18] MEDS ORDERED: Naloxone 0.4 MG/ML INJ IVP PRN (20:44)
[2017-10-18] MEDS ORDERED: Acetaminophen 325 MG TABLET PO PRN (20:44)
[2017-10-18] MEDS ORDERED: traMADol 50 MG TABLET PO PRN (20:44)
[2017-10-18] MEDS ORDERED: *HR* OxyCODONE Immed Rel 5 MG TABLET PO PRN (20:44)
[2017-10-18] MEDS ORDERED: D5% in Water 1,000 ML IVC PRN (20:48)
[2017-10-18] MEDS ORDERED: Dextrose Gel 15 GM/37.5 ML TUBE PO PRN ×2 (20:48)
[2017-10-18] MEDS ORDERED: *HR* Dextrose 50 % in Water (Syg) 50 ML SYRINGE IVP PRN (20:48)
[2017-10-18] MEDS ORDERED: Insulin LISPRO 300 UNITS/3 ML VIAL SQ SCH (21:00)
[2017-10-18] MEDS ORDERED: Gabapentin 400 MG CAPSULE PO SCH (21:00)
[2017-10-18] MEDS ORDERED: Furosemide 40 MG TABLET PO SCH (21:00)
[2017-10-18] MEDS ORDERED: Furosemide 40 MG/4 ML VIAL IVP SCH (21:15)
[2017-10-18] MEDS ORDERED: 0.9 % Sodium Chloride 250 ML IVC ONE (21:22)
[2017-10-18 21:23] LABS: Estimated Average Glucose 223 mg/dl; Hemoglobin A1C 9.4 %
[2017-10-18] MEDS ORDERED: *HR* Heparin 5,000 UNIT/ML VIAL SQ SCH (22:00)
--- NOTE | 2017-10-18 23:21 | Death Note ---
Discharge Sum: Summary - Date and Time Date of admission: 10/18/17 17:40 Date of : 10/18/17 Time of : 22:54 - Summary Details: Mr. Schuler was a 52-year-old gentleman with a history of COPD, diabetes, GERD , hypertension, hyperlipidemia and recent diagnosis of severe nonischemic cardiomyopathy with left heart catheterization approximately one week ago without any PCI. The patient presented initially to [place] ED with shortness of breath and, "not feeling right." He at that time was having significant short of breath which seemed to be getting worse, associated with cough and no chest pain. Us admitted to severe orthopnea, and PND. He denied any fevers or chills, but he did say that he had increased edema in his legs and had significant swelling in his scrotum and penis. In the ED he was found to have hypotension with a pressure of 83/50, WBC 13.6, lactic acid 0.9, negative troponin, BNP 488, serum creatinine 2.24, potassium 5.6. At that time he was given broad-spectrum antibiotics for suspicion of pneumonia which was demonstrated on chest x-ray and transferred to [facility]. Upon arrival we did start the patient on peripheral dobutamine at low dose in order to increase cardiac output and potentially perfuse the kidneys more for improved excretion. The patient was also given a small fluid bolus in order to bring the pressure up in the meantime, with Lasix for diuresis following the initiation of dobutamine. A CT of the chest was ordered for closer analysis of the cause of his hypoxia, and during his CT the patient had a CODE BLUE at 2208. CPR was started immediately and ACLS protocols were initiated. We attempted intubation but were unsuccessful due to patient's size and difficult airway so anesthesia was paged stat who then were able to intubate the patient. CPR was continued for approximately 21 minutes prior to the initial presentation of ROSC, however he quickly lost pulse and CPR was restarted. We were able to achieve ROSC once more about 15 minutes later but again the patient experienced asystole. Emergency contact from chart was contacted to inform of patient's critical status, and he planned to come to the hospital. CPR was continued until 2253 at which time the decision was made to stop CPR due to futility. The patient demonstrated asystole without cardiac sounds, no pulse, no respirations, and fixed and dilated pupils. - Additional Data Confirmation of as documented by pronouncing clinician: no pulse, no respirations, no heart sounds, pupils fixed and dilated Family: contacted Attending/PCP notified?: Yes Attending physician: Karlie Adan MD Was code activated?: Yes Autopsy requested?: No automobile insurance claim examiner notified?: Yes Organ bank notified?: Yes Advance directives: No Hospice patient?: No Discharge Sum: Diag - PCOD Probable Cause of : Cardiac arrest Discharge Sum: Prov - Provider Primary care physician: Cecil Valle MD Admitting clinician: Herminia Melchor Attending physician on admission: Herminia Melchor Pronouncing clinician: Herminia Melchor
[2017-10-19] MEDS ORDERED: Cefepime HCl 1,000 MG in Water for inj. (sterile) 20 ML 10 ML IVPB SCH (06:00)
[2017-10-19] MEDS ORDERED: Insulin LISPRO 300 UNITS/3 ML VIAL SQ SCH (07:30)
[2017-10-19] MEDS ORDERED: Aspirin 81 MG TAB.CHEW PO SCH (09:00)
[2017-10-22] MEDS ORDERED: Cholecalciferol (D-3) 1,000 UNIT TABLET PO SCH (09:00)
== END 2017-10-18 22:54 | disposition expired | DRG 194 ==
LOC: 2NNU 17:40
PROVIDERS: ADMIT Internal Medicine Pulmonary Disease; ATTEND Internal Medicine Pulmonary Disease